=== PATIENT | female | born 1970 | race Caucasian/White ===

== ENCOUNTER 2020-06-04 08:29 | Outpatient (REF) | payer OTHER, SELFPAY ==
--- NOTE | 2020-06-04 08:50 | US_ITS ---
EXAMINATION: ULTRASOUND ABDOMEN COMPRESSION WITH ELASTOGRAPHY CLINICAL INFORMATION: Fatty liver. COMPARISON: CT scan of the abdomen and pelvis dated 05/15/2015. TECHNIQUE: Multiple 2-D grayscale and color Doppler ultrasound images of the abdomen were obtained along with elastography. FINDINGS: Pancreas: The visualized pancreas is unremarkable. The tail is obscured by bowel gas shadowing. Abdominal aorta: Unremarkable. Inferior vena cava: Unremarkable. Liver: Diffuse increased echotexture without focal abnormality. Elastography: Median value is 1.55 with good sampling (0.13 IQR/median) is in the range of mild to moderate fibrosis. Gallbladder: Unremarkable. Common bile duct: 0.4 cm. Right kidney: 13.0 cm. Unremarkable. Left kidney: 12.6 cm. Unremarkable. Spleen: 9.2 cm. Unremarkable. IMPRESSION: 1. Hepatic steatosis without focal abnormality. Definitive evidence for cirrhosis is not seen. Elastography demonstrated mild to moderate fibrosis as detailed above.
== END 2020-06-04 08:30 | disposition home or self-care (01) ==
LOC: HO.US 08:29
PROVIDERS: Visit Provider Physician Assistant
DX: K76.0 Fatty (change of) liver, not elsewhere classified (principal)
CPT/HCPCS: 76705; 76981

== ENCOUNTER → 2020-06-27 10:39 | Outpatient (BNVA) | payer OTHER, MEDICAID, SELFPAY | PROVIDERS: PCP Internal Medicine; Referring Provider Internal Medicine; Visit Provider Physician Assistant | DX: K76.0 Fatty (change of) liver, not elsewhere classified (principal); E66.3 Overweight; E11.9 Type 2 diabetes mellitus without complications | CPT/HCPCS: 99212; Q3014 ==

== ENCOUNTER 2020-08-06 14:04 | Outpatient (REF) | payer OTHER, SELFPAY ==
--- NOTE | 2020-08-06 | MM_ITS ---
EXAMINATION: MM SCREENING DIGITAL BREAST TOMOSYNTHESIS, BILATERAL CLINICAL INFORMATION: Screening. Asymptomatic. The lifetime risk of breast cancer based on the Tyrer-Cuzick Model is 17.9%. COMPARISON: Mammography: March 23, 2019 and studies dating back to July 23, 2013 TECHNIQUE: Digital breast tomosynthesis is performed in both the craniocaudal and mediolateral oblique views along with computer-aided detection (CAD). Synthesized 2D images are generated from the tomosynthesis. FINDINGS: The breasts are heterogeneously dense, which may obscure small masses (ACR BI-RADS breast composition Category c). There are no significant masses, abnormal calcifications, or other abnormalities. MM/MM tomosynthesis screening BI IMPRESSION: There are no significant changes from prior study. ASSESSMENT: BI-RADS 1: Negative RECOMMENDATION: Routine annual mammography screening. This patient's information was entered into a reminder system with a target due date for their next mammogram.
== END 2020-08-06 14:05 | disposition home or self-care (01) ==
LOC: HO.MAMMO 14:04
PROVIDERS: PCP Internal Medicine; Visit Provider Internal Medicine
DX: Z12.31 Encounter for screening mammogram for malignant neoplasm of breast (principal)
CPT/HCPCS: 77063; 77067

== ENCOUNTER 2020-08-14 11:30 | Day surgery (SDC) | payer OTHER, SELFPAY ==
[2020-08-08 16:25] VITALS: BMI 34.9
--- NOTE | 2020-08-13 09:38 | HO.ANESPROP2 ---
Documented by User: Ameena Mckenzie 08/13/20 09:40 HPI - Anesthesia Eval Consult details Narrative: 50yo F [facility] Colon[facility] Past Medical History Medical History Benign head tremor Carpal tunnel syndrome Depressed Diabetes Dystonia Fatty liver Obesity Family History Family History Father Coronary artery disease Mother Coronary artery disease Emphysema lung Paternal Uncle Myocardial infarction Paternal Aunt Breast cancer Surgical History Surgical History History of carpal tunnel release History of extraction of renal calculus S/P Botox injection Social History Social History Alcohol intake: former Smoking Status: Unknown if ever smoked Use of substances other than those prescribed or required for medical reasons: No Advance Directives: Yes Advance Directives Information Provided: No Advance Directives on File: Yes Advance Directives Date on File: 06/04/20 Recently lost weight without trying: No Current occupational status: unemployed Current occupation: since covid pandemic Meds Allergies Allergy/AdvReac Type Severity Reaction Status Date / Time No Known Allergies Allergy Verified 07/09/20 09:40 Home Medications Medication Instructions Recorded Confirmed Type albuterol sulfate 1 - 2 puff PO Q4-6H PRN 08/08/20 08/08/20 History baclofen 1 tab PO BID 08/08/20 08/08/20 History gabapentin 1 cap PO TID 08/08/20 08/08/20 History glipizide 1 tab PO DAILY 08/08/20 08/08/20 History lisinopril 1 tab PO DAILY 08/08/20 08/08/20 History metformin 1 tab PO BID 08/08/20 08/08/20 History propranolol 1 tab PO BID 08/08/20 08/08/20 History trihexyphenidyl 2 mg PO 4-5XD PRN 08/08/20 08/08/20 History Exam Exam Date and Time: August 13, 202038 Height,Weight and Vital Signs: Height 5 ft 1.5 in Weight 85.275 kg Assessment and Plan Assessment Anesthesia Assessment: Chart Reviewed Documented by User: Delfino Giles 08/14/20 12:09 PMFSH Past Medical History Medical History Benign head tremor Carpal tunnel syndrome Depressed Diabetes Dystonia Fatty liver Obesity Family History Family History Father Coronary artery disease Mother Coronary artery disease Emphysema lung Paternal Uncle Myocardial infarction Paternal Aunt Breast cancer Surgical History Surgical History History of carpal tunnel release History of extraction of renal calculus S/P Botox injection Social History Social History Alcohol intake: former Smoking Status: Unknown if ever smoked Use of substances other than those prescribed or required for medical reasons: No Advance Directives: Yes Advance Directives Information Provided: No Advance Directives on File: Yes Advance Directives Date on File: 06/04/20 Recently lost weight without trying: No Current occupational status: unemployed Current occupation: since covid pandemic Meds Allergies Allergy/AdvReac Type Severity Reaction Status Date / Time No Known Allergies Allergy Verified 07/09/20 09:40 Home Medications Medication Instructions Recorded Confirmed Type albuterol sulfate 1 - 2 puff PO Q4-6H PRN 08/08/20 08/08/20 History baclofen 1 tab PO BID 08/08/20 08/08/20 History gabapentin 1 cap PO TID 08/08/20 08/08/20 History glipizide 1 tab PO DAILY 08/08/20 08/08/20 History lisinopril 1 tab PO DAILY 08/08/20 08/08/20 History metformin 1 tab PO BID 08/08/20 08/08/20 History propranolol 1 tab PO BID 08/08/20 08/08/20 History trihexyphenidyl 2 mg PO 4-5XD PRN 08/08/20 08/08/20 History Exam Airway Mallampati Class: II TM Dist: >3cm Neck ROM: Full
[2020-08-14 12:01] VITALS: BP 111/72; PULSE 93; RESP 18; TEMP 36.8; O2SAT 99
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
--- NOTE | 2020-08-14 12:02 | W.PM.OPN ---
Operative Note Operative Note Date of Service: 08/14/20 Narrative: Pre-op diagnosis: Colon cancer screening, abdominal pain, rectal bleeding Post-op diagnosis: other (Colon polyp, diverticulosis, hemorrhoids) Procedure: COLONOSCOPY TILL CECUM WITH SNARE POLYPECTOMY AND SUBMUCOSAL INJECTION Consent: Indications for the procedure and potential complications of bleeding, perforation, reaction to medications and missed diagnosis were discussed with the patient and informed consent was obtained. Instrument: Olympus PCF H 190 L variable stiffness pediatric colonoscope Monitoring: Vital signs and clinical assessment, intermittent blood pressure monitoring, continuous EKG monitoring, Pulse oximetry and Carbon Dioxide monitoring were done throughout the procedure. Colon withdrawl time was 30 minutes. Procedure: The patient was placed in the left lateral decubitis position and pre-procedure medications were administered. After a digital rectal examination of the ano-rectum, the video colonoscope was inserted into the rectum and advanced through the colon to the cecum. The colonoscope was slowly withdrawn in a retrograde panoramic fashion and the colon mucosa was carefully examined including a retroflexed view of the rectum. Findings and interventions are described below. Procedure Difficulty: Without difficulty Findings: Terminal Ileum: Not evaluated Cecum: Normal Ascending Colon: Normal Transverse Colon: Normal Descending Colon: Moderate diverticulosis Sigmoid Colon: A 3.5 - 4 cms pedunculated polyp at 30 cms - removed with a hot snare and polypectomy site marked with Renée Ink (submucosal injection). Moderate diverticulosis Rectum: Normal Ano-rectum: Small internal hemorrhoids Colon preparation: Good Impression and Post Procedure Diagnosis: Colonoscopy Findings: A 3.5 -4 cms pedunculated polyp at 30 cms - removed with a hot snare and polypectomy site marked with Renée Ink (submucosal injection). Moderate diverticulosis seen in the left colon Small hemorrhoids on retroflexed exam. Plan: Await pathology results Patient has an appointment on 08/27/20 in the GI Clinic with DAVID Sal . Repeat Colonoscopy interval based on path results - in 1 year if polyp is adenomatous to check polypectomy site in the sigmoid colon. Above findings were reviewed with the patient and colon polyps and diverticulosis handouts were given in the discharge area Surgeon: Perry Cardoso MD Anesthesia: MAC (SARITA Torres) Estimated blood loss (mL): 0 Pathology: other (A. SC polyp ) Condition: stable Disposition: PACU
[2020-08-14 12:11] LABS: Glucose, Whole Blood 224 mg/dL (60-115)
[2020-08-14 13:10] VITALS: BP 118/58; PULSE 91; RESP 14; TEMP 36.3; O2SAT 97
[2020-08-14 13:25] VITALS: BP 109/66; PULSE 81; RESP 16; TEMP 36.3; O2SAT 99
--- NOTE | 2020-08-14 13:59 | HO.POSTANES ---
Post Anesthesia Evaluation Post Anesthesia Evaluation Vital Signs: Vital Signs Temp Pulse Resp BP Pulse Ox 08/14/20 13:25 97.3 F 81 16 109/66 99 08/14/20 13:10 97.3 F 91 14 118/58 L 97 08/14/20 12:01 98.3 F 93 18 111/72 99 Anesthesia: Monitored Mental Status: Awake Pain Control: Satisfactory Nausea/Vomiting: None Hydration: Adequate Anesthesia-Related Issues: No Anes. Related Issues
== END 2020-08-14 14:19 | disposition home or self-care (01) ==
PROVIDERS: PCP Internal Medicine; Visit Provider Internal Medicine Gastroenterology
PROC: 0DJD8ZZ Inspection of Lower Intestinal Tract, Via Natural or Artificial Opening Endoscopic (ICD-10-PCS; CPT 45378; principal; 2020-08-14 12:40)
DX: Z12.11 Encounter for screening for malignant neoplasm of colon (principal); D12.5 Benign neoplasm of sigmoid colon; K57.30 Diverticulosis of large intestine without perforation or abscess without bleeding; K64.8 Other hemorrhoids; E11.9 Type 2 diabetes mellitus without complications; Z79.84 Long term (current) use of oral hypoglycemic drugs
CPT/HCPCS: 45385; 45381; 82947; 88305; J2370

== ENCOUNTER → 2020-09-11 08:41 | Outpatient (BNVA) | payer OTHER, SELFPAY | PROVIDERS: PCP Internal Medicine; Visit Provider Physician Assistant | DX: Z76.89 Persons encountering health services in other specified circumstances (principal) ==

== ENCOUNTER 2020-12-06 11:26 | Outpatient (REF) | payer OTHER, SELFPAY ==
[2020-12-06 12:36] LABS: Alanine Aminotransferase 36 U/L (0-31); Albumin Level 4.4 g/dL (3.5-5.0); Alkaline Phosphatase 70 U/L (39-117); Anion Gap 14 (12-20); Aspartate Amino Transferase 30 U/L (5-31); Bilirubin Total 0.7 mg/dL (0.0-1.0); Blood Urea Nitrogen 14 mg/dL (9-16); Calcium 9.8 mg/dL (8.4-10.2); Carbon Dioxide 28 mmol/L (22-29); Chloride 101 mmol/L (96-108); Cholesterol 209 mg/dL; Estimated Glomerular Filt Rate > 60; Glucose Random 231 mg/dL (60-115); HDL Cholesterol 69 mg/dL; LDL Cholesterol Calculated 122 mg/dl; Potassium 4.7 mmol/L (3.3-5.1); Sodium 138 mmol/L (135-145); Total Protein 7.4 g/dL (6.5-8.0); Triglycerides 91 mg/dL
== END 2020-12-06 11:27 | disposition home or self-care (01) ==
LOC: HO.LAB 11:26
PROVIDERS: PCP Internal Medicine; Visit Provider Internal Medicine
DX: E78.00 Pure hypercholesterolemia, unspecified (principal); E11.65 Type 2 diabetes mellitus with hyperglycemia
CPT/HCPCS: 36415; 80053; 80061

== ENCOUNTER 2020-12-12 14:45 | Outpatient (REF) | payer OTHER, SELFPAY ==
--- NOTE | ~2020-12-12 | XR_ITS ---
EXAMINATION: BILATERAL HIP X-RAY CLINICAL INFORMATION: Pain COMPARISON: None TECHNIQUE: 2 views of each hip FINDINGS: Bone alignment is normal. No fracture or dislocation is seen. The hip joints are normal. There is soft tissue ossification adjacent to the right greater trochanter. XR/XR hip LT min 2V IMPRESSION: Soft tissue ossification adjacent to the right greater trochanter otherwise unremarkable exam.
--- NOTE | ~2020-12-12 | XR_ITS ---
EXAMINATION: XR SACRUM AND COCCYX CLINICAL INFORMATION: Low back pain COMPARISON: None TECHNIQUE: 2 views of the sacrum and 2 views of the coccyx were obtained. FINDINGS: There is no visible fracture involving the sacrum or the coccyx. SI joints are symmetrical. Visualized pelvic bones are unremarkable. There are multiple pelvic phleboliths. No soft tissue mass seen. No bony erosive changes. XR/XR sacrum coccyx min 2V IMPRESSION: Unremarkable sacrum and coccyx.
--- NOTE | ~2020-12-12 | XR_ITS ---
EXAMINATION: BILATERAL HIP X-RAY CLINICAL INFORMATION: Pain COMPARISON: None TECHNIQUE: 2 views of each hip FINDINGS: Bone alignment is normal. No fracture or dislocation is seen. The hip joints are normal. There is soft tissue ossification adjacent to the right greater trochanter. XR/XR hip RT min 2V IMPRESSION: Soft tissue ossification adjacent to the right greater trochanter otherwise unremarkable exam.
--- NOTE | ~2020-12-12 | XR_ITS ---
EXAMINATION: XR LUMBOSACRAL SPINE CLINICAL INFORMATION: Low back pain COMPARISON: Previous lumbar spine x-ray January 2011 TECHNIQUE: Three views of the lumbosacral spine. FINDINGS: Bone alignment is normal. No fracture or dislocation is seen. There is multilevel degenerative spondylosis. Disc spaces are normal. There is lower lumbar spine facet arthritis. XR/XR lumbar spine 2-3V IMPRESSION: Degenerative changes.
== END 2020-12-12 14:46 | disposition home or self-care (01) ==
LOC: HO.XRAY 14:45
PROVIDERS: PCP Internal Medicine; Visit Provider Internal Medicine
DX: M25.552 Pain in left hip (principal); M25.551 Pain in right hip; M54.5 Low back pain
CPT/HCPCS: 72100; 72220; 73502

== ENCOUNTER 2021-01-31 13:00 | Outpatient (RCR) | payer OTHER, SELFPAY ==
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
--- NOTE | 2021-04-25 10:36 | MHC.PT.DC ---
[facility] [place] Office [place] Office [place] Office [address] Tobin Hartman [address] [phone] F: [phone] F: [phone] F: [phone] F: [phone] Physical Therapy Discharge Report Diagnosis: pain in R hip, pain in L hip, LBP Date of Surgery: Date of Evaluation: 12/26/20 Date of Discharge: 04/25/21 Treatments to Date: 11 Cancellations to Date: 0 No Shows to Date: 0 Discharge Status: Achieved Goals Improved Function Independent with HEP Discharge Summary: Pt I with HEP, decreased LBP, and improved function. Appropriate for d/c at this time. Electronically signed by: Lise Munson PT Please sign and return to therapist. Thank you for your referral.
== END 2021-04-25 10:37 | disposition home or self-care (01) ==
LOC: HO.PT 13:00
PROVIDERS: PCP Internal Medicine; Visit Provider Internal Medicine
DX: M25.551 Pain in right hip (principal); M25.552 Pain in left hip; M54.5 Low back pain
CPT/HCPCS: 97014; 97110; 97140; 97161; 97530

== ENCOUNTER 2021-03-07 13:55 | Outpatient (REF) | payer OTHER, SELFPAY ==
[2021-03-07 14:35] LABS: MANUAL DIFF FLAG NO
[2021-03-07 14:45] LABS: Basophils Percent Auto 0.6 % (0-2); Eosinophils Absolute Auto 0.1 X10*3/uL (0.0-0.4); Eosinophils Percent Auto 1.5 % (0-4); Hematocrit 40.4 % (37-47); Hemoglobin 13.2 g/dl (12.0-16.0); Imm Gran Abs Auto 0.01 X10*3/uL (0.00-0.03); Imm Gran Pct Auto 0.2 % (0.0-0.4); Lymphocytes Absolute Auto 1.9 X10*3/uL (1.2-4.9); Lymphocytes Percent Auto 28.9 % (20-40); Mean Corpuscular HGB Conc 32.7 g/dl (31.0-35.0); Mean Corpuscular Hemoglobin 28.8 pg (27.0-33.0); Mean Corpuscular Volume 88.2 fL (80-98); Mean Platelet Volume 10.1 fL (9.4-12.3); Monocytes Absolute Auto 0.6 X10*3/uL (0.1-1.2); Monocytes Percent Auto 9.1 % (2-11); Neutrophils Percent Auto 59.7 % (45-73); Platelet Count 237 X10*3/uL (160-400); Red Blood Count 4.58 X10*6/uL (4.20-5.50); Red Cell Distribution Width 13.2 % (11.0-16.0); White Blood Count 6.6 X10*3/uL (4.8-10.8)
[2021-03-07 14:59] LABS: Alanine Aminotransferase 48 U/L (0-31); Albumin Level 4.2 g/dL (3.5-5.0); Alkaline Phosphatase 66 U/L (39-117); Anion Gap 13 (12-20); Aspartate Amino Transferase 35 U/L (5-31); Bilirubin Total 0.7 mg/dL (0.0-1.0); Blood Urea Nitrogen 12 mg/dL (9-16); Calcium 9.4 mg/dL (8.4-10.2); Carbon Dioxide 24 mmol/L (22-29); Chloride 103 mmol/L (96-108); Cholesterol 186 mg/dL; Estimated Glomerular Filt Rate > 60; Glucose Random 207 mg/dL (60-115); HDL Cholesterol 59 mg/dL; LDL Cholesterol Calculated 114 mg/dl; Potassium 4.2 mmol/L (3.3-5.1); Sodium 136 mmol/L (135-145); Triglycerides 68 mg/dL
[2021-03-07 14:59] LABS: Creatinine Urine 61.77 mg/dL
[2021-03-07 15:20] LABS: Free T4 (Free Thyroxine) 0.96 ng/dL (0.71-1.85); Thyroid Stimulating Hormone 0.67 uIU/mL (0.32-4.0); Vitamin D 25-OH Total 23.7 ng/mL (>30)
[2021-03-07 15:32] LABS: Folate 19.1 ng/mL (> or = 4.0); Vitamin B12 544 pg/mL (200-900)
[2021-03-07 16:09] LABS: Estimated Average Glucose 217 mg/dL; Hemoglobin A1c % 9.2 %
== END 2021-03-07 13:56 | disposition home or self-care (01) ==
LOC: HO.LAB 13:55
PROVIDERS: PCP Internal Medicine; Visit Provider Internal Medicine
DX: E78.00 Pure hypercholesterolemia, unspecified (principal); E11.65 Type 2 diabetes mellitus with hyperglycemia; I10 Essential (primary) hypertension
CPT/HCPCS: 36415; 80053; 80061; 82043; 82306; 82607; 82746; 83036; 84439; 84443; 85025

== ENCOUNTER → 2021-03-19 07:45 | Outpatient (BNVA) | payer OTHER, SELFPAY | PROVIDERS: PCP Internal Medicine; Visit Provider Physician Assistant ==

== ENCOUNTER 2021-04-30 11:53 | Day surgery (SDC) | payer OTHER, SELFPAY ==
[2021-04-30 06:46] VITALS: BMI 30.7
[2021-04-30 12:15] VITALS: BP 103/67; PULSE 84; RESP 18; TEMP 36.6; O2SAT 95
[2021-04-30 12:38] LABS: Glucose, Whole Blood 235 mg/dL (60-115)
--- NOTE | 2021-04-30 12:46 | MHC.SHP ---
Pre-Procedural Eval Section A Date of Service: 04/30/21 The patient is an INPATIENT: No The History & Physical has been completed within 30 days and I have reviewed it.: No Section B Chief Complaint: Colon cancer screening, benign neoplasm of colon Details of Present Illness: Colon cancer screening, history of colon polyps Relevant Family History (Specify if Yes): No Relevant Social History: None Present Medications: see Short Stay Collaborative assessment Medical History: Significant History (Alcohol abuse Benign head tremor Carpal tunnel syndrome Cervical disc disease Depressed Diabetes Dystonia Fatty liver GERD (gastroesophageal reflux disease) History of renal calculi Hypercholesterolemia Hypertension Obesity Obesity (BMI 30-39.9) Type 2 diabetes mellitus with hyperglycemia Vitamin D ) History of Previous Operations: Relevant previous surgery/procedure and date(s) (History of carpal tunnel release History of extraction of renal calculus S/P Botox injection) Allergies: Allergies Allergy/AdvReac Type Severity Reaction Status Date / Time No Known Allergies Allergy Verified 03/19/21 07:46 Review of Systems Sugical H&P ROS: Negative: Constitution, Cardiovascular, Respiratory and Gastrointestinal Exam Surgical H&P Exam: Normal: Heart, Normal: Lungs, Normal: Extremities and Normal: Abdomen Plan Diagnosis/Plan: Unchanged I have reviewed the history and physical and performed a pertinent physical examination on my patient. No changes have occurred unless specified.
--- NOTE | 2021-04-30 12:48 | P.OP_ITS ---
Operative Note Operative Note Date of Service: 04/30/21 Narrative: Pre-op diagnosis:?Colon cancer screening, history of colon polyps Post-op diagnosis:?other (Colon polyp, nodule ascending colon, diverticulosis, hemorrhoids) Procedure:? COLONOSCOPY TILL CECUM WITH BIOPSIES AND SNARE POLYPECTOMY Consent: Indications for the procedure and potential complications of bleeding, perforation, reaction to medications and missed diagnosis were discussed with the patient and informed consent was obtained. Instrument: Olympus PCF H 190 L variable stiffness pediatric colonoscope Monitoring: Vital signs and clinical assessment, intermittent blood pressure monitoring, continuous EKG monitoring, Pulse oximetry and Carbon Dioxide monitoring were done throughout the procedure. Colon withdrawl time was 24 minutes. Procedure: The patient was placed in the left lateral decubitis position and pre-procedure medications were administered. After a digital rectal examination of the ano-rectum, the video colonoscope was inserted into the rectum and advanced through the colon to the cecum. The colonoscope was slowly withdrawn in a retrograde panoramic fashion and the colon mucosa was carefully examined including a retroflexed view of the rectum. Findings and interventions are described below. Procedure Difficulty: Without difficulty Findings: Terminal Ileum: Not evaluated Cecum:? Normal Ascending Colon:? A 2 cms yellowish benign appearing nodule in the proximal AC with normal overlying mucosa - biopsied with extrusion of fat. Transverse Colon:? Normal Descending Colon:? A 12-15 mm sessile polyp removed with a hot snare. Sigmoid Colon:? Polypectomy site noted at 30 cms with a small pedicle - biopsies obtained from the pedicle.? Moderate diverticulosis Rectum:? Normal Ano-rectum:? Small internal hemorrhoids Colon preparation:? Good? Impression and Post Procedure Diagnosis: Colonoscopy Findings: One polyp removed. Benign appearing nodule in AC - likely submucosal lipoma. Polypectomy site noted at 30 cms marked by suki ink and a small pedicle - biops ies obtained from the pedicle.? Moderate diverticulosis Moderate diverticulosis seen in the sigmoid colon Small hemorrhoids on retroflexed exam. Plan: Await pathology results Patient has an appointment on 05/27/21 in the GI Clinic with DAVID Sal . Repeat Colonoscopy interval based on path results - in 3 years if polyps are adenomatous and due to hx of a large TVA. Above findings were reviewed with the patient and colon polyps and diverticulosis handouts were given in the discharge area Surgeon:?Perry Cardoso MD Anesthesia:?MAC (Dr Clayton & Sis Mariee CRNA) Was an [employer] used for this Procedure?:?Yes [employer]:?[place] Estimated blood loss (mL):?0 Pathology:?other (A- ASCENDING COLON NODULE? B- DESCENDING COLON POLYP? C- SIGMOID COLON BX? FROM PREVIOUS POLYPECTOMY SITE) Condition:?stable Disposition:?PACU
--- NOTE | 2021-04-30 12:50 | PC.NURSE ---
pt sts in menopause period 2 mths poc 235 anesthesia aware of both no new orders. pt pwd nad
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
[2021-04-30] MEDS: Lactated Ringers 1,000 ML 50 ML IVCONT (13:52)
[2021-04-30 14:49] VITALS: BP 94/44; PULSE 85; RESP 14; TEMP 36.3; O2SAT 99
[2021-04-30 15:03] VITALS: BP 108/75; PULSE 83; RESP 16; TEMP 36.3; O2SAT 99
== END 2021-04-30 15:30 ==
PROVIDERS: PCP Internal Medicine; Visit Provider Internal Medicine Gastroenterology
PROC: 0DJD8ZZ Inspection of Lower Intestinal Tract, Via Natural or Artificial Opening Endoscopic (ICD-10-PCS; CPT 45378; principal; 2021-04-30 13:10)
DX: Z12.11 Encounter for screening for malignant neoplasm of colon (principal); D12.4 Benign neoplasm of descending colon; K57.30 Diverticulosis of large intestine without perforation or abscess without bleeding; K64.8 Other hemorrhoids; K63.89 Other specified diseases of intestine; Z86.010 Personal history of colon polyps; E11.9 Type 2 diabetes mellitus without complications; I10 Essential (primary) hypertension; Z79.82 Long term (current) use of aspirin; Z79.84 Long term (current) use of oral hypoglycemic drugs; Z79.899 Other long term (current) drug therapy
CPT/HCPCS: 45385; 45380; 45381; 82947; 88305

== ENCOUNTER → 2021-05-27 11:11 | Outpatient (BNVA) | payer OTHER, SELFPAY | PROVIDERS: PCP Internal Medicine; Visit Provider Physician Assistant ==

== ENCOUNTER 2021-09-10 13:07 | Outpatient (REF) | payer OTHER, SELFPAY ==
--- NOTE | ~2021-09-10 | MM_ITS ---
EXAMINATION: MM SCREENING DIGITAL BREAST TOMOSYNTHESIS, BILATERAL CLINICAL INFORMATION: Screening. Asymptomatic. The lifetime risk of breast cancer based on the Tyrer-Cuzick Model is 15%. COMPARISON: Mammography: 08/06/2020, 03/23/2019, 01/02/2018 TECHNIQUE: Digital breast tomosynthesis is performed in both the craniocaudal and mediolateral oblique views along with computer-aided detection (CAD). Synthesized 2D images are generated from the tomosynthesis. Additional bilateral MLO views are provided. FINDINGS: There are scattered areas of fibroglandular density (ACR BI-RADS breast composition Category b). There are no significant masses, abnormal calcifications, or other abnormalities. There are some dermal calcifications again noted posterior inferior right breast. The bilateral axilla are unremarkable. No significant changes. MM/MM tomosynthesis screening BI IMPRESSION: No mammographic evidence of malignancy. ASSESSMENT: BI-RADS 2: Benign RECOMMENDATION: Routine annual mammography screening. This patient's information was entered into a reminder system with a target due date for their next mammogram.
== END 2021-09-10 13:08 | disposition home or self-care (01) ==
LOC: HO.MAMMO 13:07
PROVIDERS: Visit Provider Internal Medicine
DX: Z12.31 Encounter for screening mammogram for malignant neoplasm of breast (principal)
CPT/HCPCS: 77063; 77067

== ENCOUNTER 2021-09-16 12:13 | Outpatient (REF) | payer OTHER, SELFPAY ==
--- NOTE | ~2021-09-16 | US_ITS ---
EXAMINATION: US ABDOMEN COMPLETE CLINICAL INFORMATION: Right upper quadrant abdominal pain, fatty liver. COMPARISON: Ultrasound abdomen complete with elastography 06/06/2020. CT abdomen and pelvis 05/15/2015. TECHNIQUE: Real-time imaging of the abdominal viscera. FINDINGS: PANCREAS: The visualized pancreas is normal in size and contour and echogenicity. No pancreatic ductal distention. Portion pancreatic tail and distal body are obscured by bowel gas and not completely imaged. No retroperitoneal effusion. ABDOMINAL AORTA: The proximal, mid, and distal segments are normal in caliber. INFERIOR VENA CAVA: Visualized portions are normal. LIVER: There is again mild hepatic enlargement, right lobe 21 cm. Liver surface is smooth. There is diffuse increased hepatic parenchymal echogenicity consistent with hepatic steatosis. There is no intrahepatic biliary ductal dilatation. No focal hepatic parenchymal lesion. GALLBLADDER: Normal. The gallbladder is physiologically distended without evidence of stones, sludge, polyps, wall thickening or pericholecystic fluid. COMMON BILE DUCT: Normal in caliber measuring 0.5 cm in diameter. RIGHT KIDNEY: Normal. No hydronephrosis. No renal calculi or focal parenchymal lesions. The kidney measures 12.5 cm in maximum dimension. LEFT KIDNEY: Normal. No hydronephrosis. No renal calculi or focal parenchymal lesions. The kidney measures 13.8 cm in maximum dimension. SPLEEN: Normal. The spleen measures 11.0 cm in maximum dimension. FREE FLUID: None. US/US abdomen complete IMPRESSION: 1. Chronic mild hepatic enlargement secondary to diffuse hepatic steatosis. No focal hepatic parenchymal lesion. Liver surface is smooth. 2. No cholelithiasis or biliary ductal dilatation. Visualized pancreas unremarkable. 3. No hydronephrosis.
== END 2021-09-16 12:14 | disposition home or self-care (01) ==
LOC: HO.US 12:13
PROVIDERS: PCP Internal Medicine; Visit Provider Internal Medicine
DX: R10.11 Right upper quadrant pain (principal); R79.89 Other specified abnormal findings of blood chemistry
CPT/HCPCS: 76700

== ENCOUNTER 2021-11-09 10:49 | Outpatient (REF) | payer OTHER, SELFPAY ==
[2021-11-09 11:02] LABS: MANUAL DIFF FLAG NO
[2021-11-09 11:21] LABS: Basophils Percent Auto 0.3 % (0-2); Eosinophils Absolute Auto 0.1 X10*3/uL (0.0-0.4); Eosinophils Percent Auto 1.1 % (0-4); Hematocrit 41.4 % (37.0-47.0); Hemoglobin 13.2 g/dl (12.0-16.0); Imm Gran Abs Auto 0.02 X10*3/uL (0.00-0.03); Imm Gran Pct Auto 0.3 % (0.0-0.4); Lymphocytes Absolute Auto 1.7 X10*3/uL (1.2-4.9); Lymphocytes Percent Auto 27.6 % (20-40); Mean Corpuscular HGB Conc 31.9 g/dl (31.0-35.0); Mean Corpuscular Hemoglobin 28.3 pg (27.0-33.0); Mean Corpuscular Volume 88.8 fL (80.0-98.0); Monocytes Absolute Auto 0.5 X10*3/uL (0.1-1.2); Monocytes Percent Auto 8.3 % (2-11); Neutrophils Absolute Auto 3.8 x10*3/uL (2.0-8.3); Neutrophils Percent Auto 62.4 % (45-73); Platelet Count 259 X10*3/uL (160-400); Red Blood Count 4.66 X10*6/uL (4.20-5.50); Red Cell Distribution Width 13.2 % (11.0-16.0); White Blood Count 6.2 X10*3/uL (4.8-10.8)
[2021-11-09 11:35] LABS: Estimated Average Glucose 220 mg/dL; Hemoglobin A1c % 9.3 %
[2021-11-09 11:44] LABS: Alanine Aminotransferase 65 U/L (0-31); Albumin Level 4.3 g/dL (3.5-5.0); Alkaline Phosphatase 70 U/L (39-117); Anion Gap 14 (12-20); Aspartate Amino Transferase 46 U/L (5-31); Bilirubin Total 0.8 mg/dL (0.0-1.0); Blood Urea Nitrogen 11 mg/dL (9-16); Calcium 9.4 mg/dL (8.4-10.2); Carbon Dioxide 26 mmol/L (22-29); Chloride 101 mmol/L (96-108); Cholesterol 184 mg/dL; Estimated Glomerular Filt Rate > 60; Glucose Random 288 mg/dL (60-115); HDL Cholesterol 68 mg/dL; LDL Cholesterol Calculated 99 mg/dl; Potassium 4.1 mmol/L (3.3-5.1); Sodium 137 mmol/L (135-145); Total Protein 7.3 g/dL (6.5-8.0); Triglycerides 85 mg/dL
[2021-11-09 11:45] LABS: Creatinine Urine 161.17 mg/dL; Microalbum/Creatinine Ratio Ur 25.4 ug/mg cr
[2021-11-09 12:06] LABS: Free T4 (Free Thyroxine) 0.93 ng/dL (0.71-1.85); Vitamin D 25-OH Total 29.3 ng/mL (>30)
[2021-11-09 12:17] LABS: Folate 18.6 ng/mL (> or = 4.0); Vitamin B12 550 pg/mL (200-900)
== END 2021-11-09 10:50 | disposition home or self-care (01) ==
LOC: HO.LAB 10:49
PROVIDERS: PCP Internal Medicine; Visit Provider Internal Medicine
DX: E11.65 Type 2 diabetes mellitus with hyperglycemia (principal); E78.00 Pure hypercholesterolemia, unspecified; I10 Essential (primary) hypertension
CPT/HCPCS: 36415; 80053; 80061; 82043; 82306; 82607; 82746; 83036; 84439; 84443; 85025

== ENCOUNTER 2022-04-03 10:16 | Outpatient (REF) | payer OTHER, SELFPAY ==
--- NOTE | 2022-04-03 10:19 | EMG_ITS ---
Right median and ulnar motor and sensory studies were performed. Right radial sensory studies were performed. Paraspinal muscles were tested with a needle. IMPRESSION: Severe right median neuropathy across carpal tunnel. MD CAROL Thomas/CRISTINE / [id number]
== END 2022-04-03 10:17 | disposition home or self-care (01) ==
LOC: HO.NEURO 10:16
PROVIDERS: PCP Internal Medicine; Visit Provider Internal Medicine
DX: G56.00 Carpal tunnel syndrome, unspecified upper limb (principal)
CPT/HCPCS: 95886; 95909

== ENCOUNTER → 2022-05-20 13:06 | Outpatient (BNVA) | payer MEDICARE, MEDICAID, SELFPAY | PROVIDERS: PCP Internal Medicine; Visit Provider Orthopaedic Surgery | DX: G56.01 Carpal tunnel syndrome, right upper limb (principal); M65.331 Trigger finger, right middle finger; E11.65 Type 2 diabetes mellitus with hyperglycemia; Z68.30 Body mass index [BMI] 30.0-30.9, adult | CPT/HCPCS: 99202 ==

== ENCOUNTER 2022-09-16 12:59 | Outpatient (REF) | payer MEDICARE, MEDICAID, SELFPAY ==
--- NOTE | ~2022-09-16 | MM_ITS ---
EXAMINATION: MM SCREENING DIGITAL BREAST TOMOSYNTHESIS, BILATERAL CLINICAL INFORMATION: Screening. Asymptomatic. The lifetime risk of breast cancer based on the Tyrer-Cuzick Model is 15%. COMPARISON: Mammography: 09/10/2021, 08/06/2020, 03/23/2019 TECHNIQUE: Digital breast tomosynthesis is performed in both the craniocaudal and mediolateral oblique views along with computer-aided detection (CAD). Synthesized 2D images are generated from the tomosynthesis. FINDINGS: There are scattered areas of fibroglandular density (ACR BI-RADS breast composition Category b). There are no significant masses, abnormal calcifications, or other abnormalities. The parenchymal pattern is similar to prior studies and there is no developing density or architectural abnormality. The axilla and skin contours are unremarkable. There are grouped incidental dermal calcifications again noted posterior 5:00 right breast. MM/MM tomosynthesis screening BI IMPRESSION: No mammographic evidence of malignancy. ASSESSMENT: BI-RADS 2: Benign RECOMMENDATION: Routine annual mammography screening. This patient's information was entered into a reminder system with a target due date for their next mammogram.
== END 2022-09-16 13:00 | disposition home or self-care (01) ==
LOC: HO.MAMMO 12:59
PROVIDERS: PCP Internal Medicine; Visit Provider Internal Medicine
DX: Z12.31 Encounter for screening mammogram for malignant neoplasm of breast (principal)
CPT/HCPCS: 77063; 77067

== ENCOUNTER → 2023-01-06 09:37 | Outpatient (BNVA) | payer MEDICARE, MEDICAID, SELFPAY | PROVIDERS: PCP Internal Medicine; Visit Provider Dietitian, Registered | DX: E11.65 Type 2 diabetes mellitus with hyperglycemia (principal); E78.00 Pure hypercholesterolemia, unspecified; Z71.3 Dietary counseling and surveillance | CPT/HCPCS: 97802 ==

== ENCOUNTER 2023-01-21 14:17 | Outpatient (REF) | payer MEDICARE, MEDICAID, SELFPAY ==
[2023-01-21 14:28] LABS: MANUAL DIFF FLAG NO
[2023-01-21 15:52] LABS: Basophils Percent Auto 0.5 % (0-2); Eosinophils Absolute Auto 0.1 X10*3/uL (0.0-0.4); Eosinophils Percent Auto 1.4 % (0-4); Hematocrit 43.3 % (37.0-47.0); Hemoglobin 13.8 g/dl (12.0-16.0); Imm Gran Abs Auto 0.01 X10*3/uL (0.00-0.03); Imm Gran Pct Auto 0.2 % (0.0-0.4); Lymphocytes Absolute Auto 2.2 X10*3/uL (1.2-4.9); Lymphocytes Percent Auto 32.5 % (20-40); Mean Corpuscular HGB Conc 31.9 g/dl (31.0-35.0); Mean Corpuscular Hemoglobin 28.2 pg (27.0-33.0); Mean Corpuscular Volume 88.5 fL (80.0-98.0); Mean Platelet Volume 10.3 fL (9.4-12.3); Monocytes Absolute Auto 0.6 X10*3/uL (0.1-1.2); Monocytes Percent Auto 8.9 % (2-11); Neutrophils Absolute Auto 3.8 x10*3/uL (2.0-8.3); Neutrophils Percent Auto 56.5 % (45-73); Platelet Count 277 X10*3/uL (160-400); Red Blood Count 4.89 X10*6/uL (4.20-5.50); Red Cell Distribution Width 13.1 % (11.0-16.0); White Blood Count 6.6 X10*3/uL (4.8-10.8)
[2023-01-21 16:18] LABS: Creatinine Urine 11.06 mg/dL; Microalbumin Urine < 5.0 mg/L
[2023-01-21 16:27] LABS: Alanine Aminotransferase 23 U/L (0-31); Albumin Level 4.4 g/dL (3.5-5.0); Alkaline Phosphatase 68 U/L (39-117); Anion Gap 13 (12-20); Aspartate Amino Transferase 17 U/L (5-31); Bilirubin Total 0.8 mg/dL (0.0-1.0); Blood Urea Nitrogen 16 mg/dL (9-16); Calcium 10.1 mg/dL (8.4-10.2); Carbon Dioxide 26 mmol/L (22-29); Chloride 103 mmol/L (96-108); Cholesterol 170 mg/dL; Estimated Glomerular Filt Rate > 60; Glucose Random 174 mg/dL (60-115); HDL Cholesterol 68 mg/dL; LDL Cholesterol Calculated 90 mg/dl; Potassium 4.3 mmol/L (3.3-5.1); Sodium 138 mmol/L (135-145); Total Protein 7.1 g/dL (6.5-8.0); Triglycerides 62 mg/dL
[2023-01-21 16:56] LABS: Folate 18.1 ng/mL (> or = 4.0); Free T4 (Free Thyroxine) 0.93 ng/dL (0.71-1.85); Thyroid Stimulating Hormone 0.97 uIU/mL (0.32-4.0); Vitamin B12 559 pg/mL (200-900); Vitamin D 25-OH Total 47.9 ng/mL (>30)
== END 2023-01-21 14:18 | disposition home or self-care (01) ==
LOC: HO.LAB 14:17
PROVIDERS: PCP Internal Medicine; Visit Provider Internal Medicine
DX: E11.65 Type 2 diabetes mellitus with hyperglycemia (principal); E78.00 Pure hypercholesterolemia, unspecified; E55.9 Vitamin D deficiency, unspecified; G24.9 Dystonia, unspecified; F32.A Depression, unspecified
CPT/HCPCS: 36415; 80053; 80061; 82043; 82306; 82607; 82746; 84439; 84443; 85025

== ENCOUNTER → 2023-02-04 13:20 | Outpatient (BNVA) | payer MEDICARE, MEDICAID, SELFPAY | PROVIDERS: PCP Internal Medicine; Visit Provider Orthopaedic Surgery | DX: G56.01 Carpal tunnel syndrome, right upper limb (principal); M65.331 Trigger finger, right middle finger; E11.65 Type 2 diabetes mellitus with hyperglycemia | CPT/HCPCS: 99212 ==

== ENCOUNTER → 2023-02-10 13:43 | Outpatient (BNVA) | payer MEDICARE, MEDICAID, SELFPAY | PROVIDERS: PCP Internal Medicine; Visit Provider Dietitian, Registered | DX: E11.65 Type 2 diabetes mellitus with hyperglycemia (principal) | CPT/HCPCS: 97803 ==

== ENCOUNTER 2023-02-24 13:32 | Outpatient (AMB) | payer MEDICARE, MEDICAID, SELFPAY ==
[2023-02-24 01:00] VITALS: BMI 31.9
--- NOTE | 2023-03-11 10:49 | A.OFFVIS_ITS ---
Intake VS Expanded 02/24/23 01:00 Height 5 ft 0.5 in Weight 166 lb 3.657 oz BMI 31.9 Intake Visit Reasons: dm Allergies No Known Allergies Allergy (Verified 03/09/23 13:20) HPI Nutrition Presentation Details Pt presents for [facility] Session 2 for T2DM Most Recent Diabetes Results: Microalb/Creat Ratio TNP 01/21/23 Cholesterol 170 mg/dL 01/21/23 HDL Cholesterol 68 mg/dL 01/21/23 Triglycerides 62 mg/dL 01/21/23 Creatinine 0.74 mg/dL (0.5-1.4) 01/21/23 Blood Urea Nitrogen 16 mg/dL (9-16) 01/21/23 Sodium 138 mmol/L (135-145) 01/21/23 Potassium 4.3 mmol/L (3.3-5.1) 01/21/23 Chloride 103 mmol/L (96-108) 01/21/23 Carbon Dioxide 26 mmol/L (22-29) 01/21/23 Calcium 10.1 mg/dL (8.4-10.2) 01/21/23 AST 17 U/L (5-31) 01/21/23 ALT 23 U/L (0-31) 01/21/23 Total Protein 7.1 g/dL (6.5-8.0) 01/21/23 Albumin 4.4 g/dL (3.5-5.0) 01/21/23 [facility], [facility] Medical History (Updated 03/11/23 @ 10:51 by Rosa Maria Stevens, RD, LDN) Alcohol abuse Benign head tremor Carpal tunnel syndrome of right wrist Cervical disc disease Depressed Diabetes Dystonia Fatty liver GERD (gastroesophageal reflux disease) History of renal calculi Hypercholesterolemia Hypertension Menopause Menopause Obesity Obesity (BMI 30-39.9) RUQ abdominal pain Type 2 diabetes mellitus with hyperglycemia Vitamin D deficiency Surgical History History of carpal tunnel release History of extraction of renal calculus Hx of colonoscopy S/P Botox injection Family History (Updated 03/09/23 @ 13:21 by Dunia Fontanez CMA) Father Coronary artery disease Mother Emphysema lung Uterine cancer Paternal Uncle Myocardial infarction Paternal Aunt Breast cancer Myocardial infarction Brother CVA (cerebral vascular accident) Social History Housing: Apartment Alcohol intake: former Patient Tobacco Use Status: Never used Tobacco e-Cigarette/Vaping Use: Never Used Second Hand Smoke Exposure: No Advance Directives Date on File: 06/04/20 service: No Current occupational status: disabled Current occupation: rt hand Cognitive needs: No Hearing needs: No Vision needs: Yes Assessment & Plan Assessment & Plan (1) Type 2 diabetes mellitus with hyperglycemia: Comment: A1c at 8.5% on 10/28/22 Code(s): E11.65 - Type 2 diabetes mellitus with hyperglycemia Qualifiers: Diabetes mellitus correction insulin use: without correction use Qualified Code(s): E11.65 - Type 2 diabetes mellitus with hyperglycemia Plan: Patient presents for medical nutrition therapy group session related to diabetes. Patient participated in group discussion and asked questions pertinent to the topic discussed. Patient Instructions: Topic discussed related to exercise Benefits of exercise including improving: insulin sensitivity, blood glucose level, cholesterol, blood pressure, mood and prevent muscle wasting Precaution with hypoglycemia and how to prevent and treat hypoglycemia Role of hydration and how to prevent dehydration Balancing meals with protein, complex carbohydrates Review healthy plate method Coding Level of Care Code Nutr Indiv Subseq ([id number]) Diagnoses Type 2 diabetes mellitus with hyperglycemia E11.65 Diabetes mellitus terminal make up operator insulin use: without correction use Time Spent (min) 60 Comment [facility] [id number]
== END 2023-02-24 14:51 | disposition home or self-care (01) ==
LOC: HO.ENCR 13:32
PROVIDERS: PCP Internal Medicine; Visit Provider Dietitian, Registered
DX: E11.65 Type 2 diabetes mellitus with hyperglycemia (principal)

== ENCOUNTER → 2023-02-24 13:32 | Outpatient (BNVA) | payer MEDICARE, MEDICAID, SELFPAY | PROVIDERS: PCP Internal Medicine; Visit Provider Dietitian, Registered | DX: E11.65 Type 2 diabetes mellitus with hyperglycemia (principal); Z71.3 Dietary counseling and surveillance | CPT/HCPCS: 97803 ==

== ENCOUNTER 2023-03-09 13:17 | Outpatient (AMB) | payer MEDICARE, MEDICAID, SELFPAY ==
[2023-03-09 13:19] VITALS: BP 120/78; PULSE 69; O2SAT 98; BMI 31.1
--- NOTE | 2023-03-09 13:19 | MHC.PC.OV ---
Vital Signs 03/09/23 13:19 Height 5 ft 0.5 in Weight 162 lb BMI 31.1 BP 120/78 Blood Pressure Location Lt brachial Position Sitting Pulse 69 Pulse Source Pulse Oximeter Pulse Oximetry (%) 98 Oxygen Delivery Method Room Air Intake Visit Reasons: DM Allergies No Known Allergies Allergy (Verified 03/09/23 13:20) Medication List - Last Reconciled 03/09/23 by Mao Sánchez MD baclofen 10 mg PO BID [blood glucose machine As directed] blood pressure monitor (Blood Pressure Kit) As directed blood sugar diagnostic (FreeStyle Lite Strips) 1 strip miscellaneous BID cholecalciferol (vitamin D3) 25 mcg PO DAILY empagliflozin 25 mg PO DAILY 30 days gabapentin 300 mg PO TID glipizide 5 mg PO DAILY [glucometer strips As directed] [lancets As directed] lancets (FreeStyle Lancets) As directed check BS BID metformin 1,000 mg PO BID 90 days multivitamin 1 tab PO DAILY propranolol 10 mg PO BID simvastatin 5 mg PO BEDTIME tramadol 50 mg PO BID PRN Tobacco use date assessed: 11/17/22 Dental Screening Dental Screen Date: 03/09/23 Did you have a dental visit in the last 12 months?: Yes Did you have a dental problem in the last 6 months where you did not have access to dental care?: No Was dental information given to patient?: Patient has dentist HPI DM HPI Details 52-year-old obese female with diabetes mellitus fatty liver hypertension hypercholesterolemia GERD and dystonia coming in for follow-up. Last seen in December 2022. Patient's mammogram is up-to-date colonoscopy due for next year. Patient has seen orthopedics for the carpal tunnel syndrome on the right which is severe with right middle trigger finger surgery would be recommended but the diabetes needs to be under control. PAtient stoopewd lisinopril due to low bp . continue to monitor the BP patient has been eating better as well as exercising now. [facility] Medical History (Updated 03/09/23 @ 13:45 by Mao Sánchez MD) Alcohol abuse Benign head tremor Carpal tunnel syndrome of right wrist Cervical disc disease Depressed Diabetes Dystonia Fatty liver GERD (gastroesophageal reflux disease) History of renal calculi Hypercholesterolemia Hypertension Menopause Menopause Obesity Obesity (BMI 30-39.9) RUQ abdominal pain Type 2 diabetes mellitus with hyperglycemia Vitamin D deficiency Surgical History History of carpal tunnel release History of extraction of renal calculus Hx of colonoscopy S/P Botox injection Family History (Updated 03/09/23 @ 13:21 by Dunia Fontanez [facility]) Father Coronary artery disease Mother Emphysema lung Uterine cancer Paternal Uncle Myocardial infarction Paternal Aunt Breast cancer Myocardial infarction Brother CVA (cerebral vascular accident) Social History Housing: Apartment Alcohol intake: former Patient Tobacco Use Status: Never used Tobacco e-Cigarette/Vaping Use: Never Used Second Hand Smoke Exposure: No Advance Directives Date on File: 06/04/20 service: No Current occupational status: disabled Current occupation: rt hand Cognitive needs: No Hearing needs: No Vision needs: Yes Questionnaire PHQ-9 Over the last 2 weeks, how often have you been bothered by any of the following problems? 1. Little interest or pleasure in doing things: several days 2. Feeling down, depressed, or hopeless: several days 3. Trouble falling or staying asleep, or sleeping too much: not at all 4. Feeling tired or having little energy: not at all 5. Poor appetite or overeating: not at all 6. Feeling bad about yourself - or that you are a failure or have let yourself or your family down: not at all 7. Trouble concentrating on things, such as reading the newspaper or watching television: not at all 8. Moving or speaking so slowly that other people could have noticed. Or the opposite - being so fidgety or restless that you have been moving around a lot more than usual: not at all 9. Thoughts that you would be better off or of hurting yourself in some way: not at all Total score: 2 Depression Screening Interpretation: Positive Source: Developed by Drs. Pino Mcneill, Joann Ferraro, Law Osborne and colleagues, with an educational jessee from [employer] [place]. Thrive Questionnaire Date Thrive assessed: 10/28/22 AUDIT C Alcohol Use Questionnaire (AUDIT-C) 1. How often do you have a drink containing alcohol?: Monthly or less 2. How many drinks containing alcohol do you have on a typical day when you are drinking?: 1 or 2 3. How often do you have six or more drinks on one occasion?: Never Total Score: 1 ADRIAN-7 AMB Questionnaire ADRIAN-7 Date ADRIAN - 7 assessed: 10/28/22 Source: Developed by Drs. Pino Mcneill, Joann Ferraro, Law Osborne and colleagues, with an educational jessee from [employer] [place]. Physical exam (Primary Care) Vital Signs: Last Vital Signs Pulse 69 03/09/23 13:19 BP 120/78 03/09/23 13:19 Pulse Ox 98 03/09/23 13:19 Oxygen Delivery Method Room Air 03/09/23 13:19 BMI result Body Mass Index 31.1 Tobacco/Smoking Status: Tobacco use Status Tobacco use date assessed 11/17/22 03/09/23 13:21 Patient Tobacco Use Status Never used Tobacco 03/09/23 13:21 e-Cigarette/Vaping Use Never Used 03/09/23 13:21 PHQ-9: PHQ-9 Score PHQ-9: Total score 2 03/09/23 13:32 Depression Screening Interpretation: Positive Thrive Assessment: Date of Thrive Assessment Date Thrive assessed 10/28/22 03/09/23 13:21 Const General: alert; No acute distress Eyes Conjunctivae: conjunctivae normal Resp Auscultation: clear to auscultation bilaterally Cardio Rate: regular rate Rhythm: regular rhythm GI Inspection: Yes normal to inspection Extrem General: Yes normal to inspection and No edema Results AMB Hemoglobin A1c AMB Hemoglobin A1c 7.6 % Last Edit by Dunia Fontanez CMA on 03/09/23 13:33 Results Reviewed Results Reviewed: Laboratory Last Values Hgb A1c (Clinic) 7.6 % (4.0-6.0) H 03/09/23 13:21 Assessment and Plan Assessment & Plan (1) Type 2 diabetes mellitus with hyperglycemia: Comment: A1c at 8.5% on 10/28/22, orientation and mobility specialist [facility] Code(s): E11.65 - Type 2 diabetes mellitus with hyperglycemia Qualifiers: Diabetes mellitus termite treater helper insulin use: without termite treater helper use Qualified Code(s): E11.65 - Type 2 diabetes mellitus with hyperglycemia Plan: Decrease the amount of carbohydrate intake, pasta, bread, rice and potatoes are all sugar and that is aside from all the sweet stuff, remember that fruits are good but they are Sweet also. Hemoglobin A1c goal of less than 6.5 patient is taking Jardiance 25 mg once a day glipizide 5 mg once a day metformin a 1000 mg twice a day (2) Fatty liver: Comment: a 50-year-old overweight, diabetic female with past history of alcohol use follows up after recent ultrasound. Ultrasound does reveal hepatic steatosis, no lesions. Liver enzymes were normal AST/ALT . Code(s): K76.0 - Fatty (change of) liver, not elsewhere classified Plan: Low-fat diet and exercise (3) Hypertension: Code(s): I10 - Essential (primary) hypertension Qualifiers: Hypertension type: essential hypertension Qualified Code(s): I10 - Essential (primary) hypertension Plan: Continue with blood pressure medication. Decrease salt intake and exercise patient on propranolol 10 mg twice a day (4) Hypercholesterolemia: Code(s): E78.00 - Pure hypercholesterolemia, unspecified Plan: Avoid fried foods, chicken skin, eggs, butter margarine, pastries and meat. Be it pork or beef they have a lot of cholesterol LDL goal of less than 100 and triglyceride of less than 150. December 2022 last blood work (5) GERD (gastroesophageal reflux disease): Code(s): K21.9 - Gastro-esophageal reflux disease without esophagitis Qualifiers: Esophagitis presence: without esophagitis Qualified Code(s): K21.9 - Gastro-esophageal reflux disease without esophagitis Plan: Avoid the foods that causes that usually spicy foods, tomato products, juices, coffee, soda and foods that your sensitive to. After eating do not lie down, allow 3-4 hours before in lie down. And keep the head of bed above 30 degrees to avoid the acid from going up. (6) Dystonia: Comment: Cervical, Sees Dr Siegel in [place] Code(s): G24.9 - Dystonia, unspecified Plan: Patient on muscle relaxant and follows up with Neurology (7) Carpal tunnel syndrome: Comment: Right, severe March 2022 Code(s): G56.00 - Carpal tunnel syndrome, unspecified upper limb Plan: Patient has met with ortho and planned surgery but will need a hemoglobin A1c low below 8 (8) Trigger finger, right middle finger: Code(s): M65.331 - Trigger finger, right middle finger Plan: Planned surgery but will need a hemoglobin A1c below 8 (9) Obesity (BMI 30-39.9): Code(s): E66.9 - Obesity, unspecified Plan: Diet and exercise Orders: Orders AMB Hemoglobin A1c Today Z13.9 - Encounter for screening, unspecified Medications: Refilled simvastatin 5 mg PO BEDTIME 90 tabs 1RF E78.00 - Pure hypercholesterolemia, unspecified Coding Level of Care Code Est Pt Level 4 (59558) Diagnoses Type 2 diabetes mellitus with hyperglycemia E11.65 Diabetes mellitus [facility] insulin use: without [facility] use Fatty liver K76.0 Hypertension I10 Hypertension type: essential hypertension Hypercholesterolemia E78.00 GERD (gastroesophageal reflux disease) K21.9 Esophagitis presence: without esophagitis Dystonia G24.9 Carpal tunnel syndrome G56.00 Trigger finger, right middle finger M65.331 Obesity (BMI 30-39.9) E66.9
== END 2023-03-09 13:46 | disposition home or self-care (01) ==
PROVIDERS: Visit Provider Internal Medicine
DX: E11.65 Type 2 diabetes mellitus with hyperglycemia (principal); I10 Essential (primary) hypertension; K21.9 Gastro-esophageal reflux disease without esophagitis; K76.0 Fatty (change of) liver, not elsewhere classified; E78.00 Pure hypercholesterolemia, unspecified; G24.9 Dystonia, unspecified; G56.00 Carpal tunnel syndrome, unspecified upper limb; M65.331 Trigger finger, right middle finger; E66.9 Obesity, unspecified
CPT/HCPCS: 83036; 99214

== ENCOUNTER 2023-03-10 13:33 | Outpatient (AMB) | payer MEDICARE, MEDICAID, SELFPAY ==
[2023-03-10 09:47] VITALS: BMI 31.6
--- NOTE | 2023-03-11 09:19 | MHC.AMNUTRGE ---
Intake VS Expanded 03/10/23 09:47 Height 5 ft 0.5 in Weight 164 lb 7.437 oz BMI 31.6 Intake Visit Reasons: dm Allergies No Known Allergies Allergy (Verified 03/09/23 13:20) HPI Nutrition Presentation Details Pt presents for [facility] education for T2DM. ? Patient participated in nutrition group? education session 3? Most Recent Diabetes Results: Microalb/Creat Ratio TNP 01/21/23 Cholesterol 170 mg/dL 01/21/23 HDL Cholesterol 68 mg/dL 01/21/23 Triglycerides 62 mg/dL 01/21/23 Creatinine 0.74 mg/dL (0.5-1.4) 01/21/23 Blood Urea Nitrogen 16 mg/dL (9-16) 01/21/23 Sodium 138 mmol/L (135-145) 01/21/23 Potassium 4.3 mmol/L (3.3-5.1) 01/21/23 Chloride 103 mmol/L (96-108) 01/21/23 Carbon Dioxide 26 mmol/L (22-29) 01/21/23 Calcium 10.1 mg/dL (8.4-10.2) 01/21/23 AST 17 U/L (5-31) 01/21/23 ALT 23 U/L (0-31) 01/21/23 Total Protein 7.1 g/dL (6.5-8.0) 01/21/23 Albumin 4.4 g/dL (3.5-5.0) 01/21/23 PFSH Medical History (Updated 03/11/23 @ 09:50 by Rosa Maria Stevens, RD, LDN) Alcohol abuse Benign head tremor Carpal tunnel syndrome of right wrist Cervical disc disease Depressed Diabetes Dystonia Fatty liver GERD (gastroesophageal reflux disease) History of renal calculi Hypercholesterolemia Hypertension Menopause Menopause Obesity Obesity (BMI 30-39.9) RUQ abdominal pain Type 2 diabetes mellitus with hyperglycemia Vitamin D deficiency Surgical History History of carpal tunnel release History of extraction of renal calculus Hx of colonoscopy S/P Botox injection Family History (Updated 03/09/23 @ 13:21 by Dunia Fontanez CMA) Father Coronary artery disease Mother Emphysema lung Uterine cancer Paternal Uncle Myocardial infarction Paternal Aunt Breast cancer Myocardial infarction Brother CVA (cerebral vascular accident) Social History Housing: Apartment Alcohol intake: former Patient Tobacco Use Status: Never used Tobacco e-Cigarette/Vaping Use: Never Used Second Hand Smoke Exposure: No Advance Directives Date on File: 06/04/20 service: No Current occupational status: disabled Current occupation: rt hand Cognitive needs: No Hearing needs: No Vision needs: Yes Assessment & Plan Assessment & Plan (1) Type 2 diabetes mellitus with hyperglycemia: Comment: A1c at 8.5% on 10/28/22, 7.6 % (03/09/23) Code(s): E11.65 - Type 2 diabetes mellitus with hyperglycemia Qualifiers: Diabetes mellitus assistant terminal manager insulin use: without assistant terminal manager use Qualified Code(s): E11.65 - Type 2 diabetes mellitus with hyperglycemia Plan: Patient presents for medical nutrition therapy group session related to diabetes. Patient participated in group discussion and asked questions pertinent to the topic discussed. Patient Instructions: Nutrition Topics Discussed were related to: -How to interpret the food label Discussed Serving Size and servings per container What is the % daily value -Recommendations for fats and sodium -Differences between fats (saturated fats, trans fats, monounsaturated fats , polyunsaturated fats) and food sources of various fats - Reading ingredient list -Goals for blood cholesterol level -Relationship of fats and sodium and heart health -Practice reading food labels and practice making healthier choices Coding Level of Care Code Nutr Indiv Subseq ([id number]) Diagnoses Type 2 diabetes mellitus with hyperglycemia E11.65 Diabetes mellitus [facility] insulin use: without assistant terminal manager use Time Spent (min) 60 Comment [facility] [id number]
== END 2023-03-10 16:19 | disposition home or self-care (01) ==
PROVIDERS: PCP Internal Medicine; Visit Provider Dietitian, Registered
DX: E11.65 Type 2 diabetes mellitus with hyperglycemia (principal)

== ENCOUNTER → 2023-03-10 13:33 | Outpatient (BNVA) | payer MEDICARE, MEDICAID, SELFPAY | PROVIDERS: PCP Internal Medicine; Visit Provider Dietitian, Registered | DX: E11.65 Type 2 diabetes mellitus with hyperglycemia (principal) | CPT/HCPCS: 97803 ==

== ENCOUNTER 2023-03-24 14:39 | Outpatient (AMB) | payer MEDICARE, MEDICAID, SELFPAY ==
--- NOTE | 2023-03-24 14:51 | A.OFFVIS_ITS ---
Intake Vital Signs 03/24/23 15:09 Height 5 ft 0.5 in Weight 164 lb BMI 31.5 Intake Visit Reasons: ov- Carpal tunnel syndrome of right wrist Intake Note: Em is a 52 year old right hand dominant woman who returns to discuss treatment for her right carpal tunnel syndrome and trigger release. States her A1c is a 6.7. Allergies No Known Allergies Allergy (Verified 03/24/23 15:10) HPI ov- Carpal tunnel syndrome of right wrist HPI Details Em is a 52 year old right hand dominant woman who returns to discuss treatment for her right carpal tunnel syndrome. We had discussed surgery in the past, but her Diabetes was not well-controlled and her HgA1c was too high to proceed with surgery. She returns today saying she has been working on her Diabetes and her mot recent HgA1c was recently 7.6% on 03/09/23. She complains of worsening numbness and weakness in her right hand. She says she has dropped objects more frequently. She also has persistent catching and tenderness over the A1 elif area of the right middle finger. She would like to discuss surgery [facility] Medical History Alcohol abuse Benign head tremor Carpal tunnel syndrome of right wrist Cervical disc disease Depressed Diabetes Dystonia Fatty liver GERD (gastroesophageal reflux disease) History of renal calculi Hypercholesterolemia Hypertension Menopause Menopause Obesity Obesity (BMI 30-39.9) RUQ abdominal pain Type 2 diabetes mellitus with hyperglycemia Vitamin D deficiency Surgical History History of carpal tunnel release History of extraction of renal calculus Hx of colonoscopy S/P Botox injection Family History Father Coronary artery disease Mother Emphysema lung Uterine cancer Paternal Uncle Myocardial infarction Paternal Aunt Breast cancer Myocardial infarction Brother CVA (cerebral vascular accident) Social History Housing: Apartment Alcohol intake: former Patient Tobacco Use Status: Never used Tobacco e-Cigarette/Vaping Use: Never Used Second Hand Smoke Exposure: No Advance Directives Date on File: 06/04/20 service: No Current occupational status: disabled Current occupation: rt hand Cognitive needs: No Hearing needs: No Vision needs: Yes Physical Exam Vital Signs: BMI result Body Mass Index 31.5 Const General: no acute distress and alert Orientation/consciousness: patient oriented x3 Neuro General: patient oriented x3 Extrem Other: Evaluation of right Upper Extremity: The patient is alert, oriented, and in no acute distress Neuro: Decreased sensation in the median nerve distribution Normal sensation to the ulnar nerve distribution No thenar wasting, no intrinsic wasting Good APB muscle belly firing and good finger cross Vascular: Cap refill brisk ROM: She can make a fist and extend all her digits She cannot bring her middle finger into tight flexion Tender over the A1 elif of the middle finger Visible and palpable catching of the right middle finger with flexion and extension EMG Nerve study: IMPRESSION:? Severe right median neuropathy across carpal tunnel. Yamilex Prather MD 04/04/22 Psych Appearance: grossly normal Affect: normal affect Attitude: cooperative Assessment & Plan Assessment & Plan (1) Type 2 diabetes mellitus with hyperglycemia: Comment: A1c at 7.6% on 03/09/23 Code(s): E11.65 - Type 2 diabetes mellitus with hyperglycemia Qualifiers: Diabetes mellitus termite inspector insulin use: without fci use Qualified Code(s): E11.65 - Type 2 diabetes mellitus with hyperglycemia (2) Carpal tunnel syndrome of right wrist: Code(s): G56.01 - Carpal tunnel syndrome, right upper limb (3) Trigger finger, right middle finger: Code(s): M65.331 - Trigger finger, right middle finger Plan Assessment & Plan: 1. Right Carpal Tunnel syndrome, severe Dense numbness in the right index finger and thumb. 2. Right middle trigger finger 3. Diabetes Her most recent Hemoglobin A1c was 7.6% on 03/09/23 I educated her about these conditions She has improved her HgA1c and it is now <8.0% The patient would like to proceed with surgery The risks and benefits of operative treatment were discussed with the patient and the patient wishes to proceed with surgery. These risks include, but are not limited to risk of damage to blood vessels, nerves, tendons, infection, recurrence, incomplete relief of preoperative symptoms, persistent pain, possible need for further surgery and the risks associated with regional blocks and anesthesia. The plan is to take the patient to the operating room sometime in the next few weeks for the following procedures: 1. Right carpal tunnel release, under local 2. Right middle trigger finger release, under local All of the preoperative paperwork including the consent was filled out today. All the patient's questions were answered. The patient understands that they will be contacted by our construction or leak gang laborer soon to schedule this procedure She denies blood thinners, asthma, heart, lung, kidney issues Scribed for Sue Rasmussen MD by Jose L Hawthorne, medical superintendent, on 03/24/23 at 3:30 PM, EST. Coding Level of Care Code Est Pt Level 4 (60015) Diagnoses Type 2 diabetes mellitus with hyperglycemia E11.65 Diabetes mellitus termite inspector insulin use: without fci use Carpal tunnel syndrome of right wrist G56.01 Trigger finger, right middle finger M65.331
[2023-03-24 15:09] VITALS: BMI 31.5
== END 2023-03-24 15:38 | disposition home or self-care (01) ==
PROVIDERS: PCP Internal Medicine; Visit Provider Orthopaedic Surgery
DX: G56.01 Carpal tunnel syndrome, right upper limb (principal); M65.331 Trigger finger, right middle finger
CPT/HCPCS: 99214

== ENCOUNTER → 2023-03-24 14:39 | Outpatient (BNVA) | payer MEDICARE, MEDICAID, SELFPAY | PROVIDERS: PCP Internal Medicine; Visit Provider Orthopaedic Surgery | DX: G56.01 Carpal tunnel syndrome, right upper limb (principal); M65.331 Trigger finger, right middle finger; E11.65 Type 2 diabetes mellitus with hyperglycemia | CPT/HCPCS: 99212 ==

== ENCOUNTER 2023-04-14 13:32 | Outpatient (AMB) | payer MEDICARE, MEDICAID, SELFPAY ==
[2023-04-14 13:38] VITALS: BMI 31.0
--- NOTE | 2023-04-14 13:38 | MHC.AMNUTRGE ---
Intake VS Expanded 04/14/23 13:38 Height 5 ft 0.5 in Weight 161 lb 9.581 oz BMI 31.0 Intake Visit Reasons: dm Allergies No Known Allergies Allergy (Verified 03/24/23 15:10) HPI Nutrition Presentation Details Pt present for MNT for T2DM Today will review meal strategies when eating out. Most Recent Diabetes Results: Microalb/Creat Ratio TNP 01/21/23 Cholesterol 170 mg/dL 01/21/23 HDL Cholesterol 68 mg/dL 01/21/23 Triglycerides 62 mg/dL 01/21/23 Creatinine 0.74 mg/dL (0.5-1.4) 01/21/23 Blood Urea Nitrogen 16 mg/dL (9-16) 01/21/23 Sodium 138 mmol/L (135-145) 01/21/23 Potassium 4.3 mmol/L (3.3-5.1) 01/21/23 Chloride 103 mmol/L (96-108) 01/21/23 Carbon Dioxide 26 mmol/L (22-29) 01/21/23 Calcium 10.1 mg/dL (8.4-10.2) 01/21/23 AST 17 U/L (5-31) 01/21/23 ALT 23 U/L (0-31) 01/21/23 Total Protein 7.1 g/dL (6.5-8.0) 01/21/23 Albumin 4.4 g/dL (3.5-5.0) 01/21/23 [facility] Medical History Alcohol abuse Benign head tremor Carpal tunnel syndrome of right wrist Cervical disc disease Depressed Diabetes Dystonia Fatty liver GERD (gastroesophageal reflux disease) History of renal calculi Hypercholesterolemia Hypertension Menopause Menopause Obesity Obesity (BMI 30-39.9) RUQ abdominal pain Type 2 diabetes mellitus with hyperglycemia Vitamin D deficiency Surgical History History of carpal tunnel release History of extraction of renal calculus Hx of colonoscopy S/P Botox injection Family History Father Coronary artery disease Mother Emphysema lung Uterine cancer Paternal Uncle Myocardial infarction Paternal Aunt Breast cancer Myocardial infarction Brother CVA (cerebral vascular accident) Social History Housing: Apartment Alcohol intake: former Patient Tobacco Use Status: Never used Tobacco e-Cigarette/Vaping Use: Never Used Second Hand Smoke Exposure: No Advance Directives Date on File: 06/04/20 service: No Current occupational status: disabled Current occupation: rt hand Cognitive needs: No Hearing needs: No Vision needs: Yes Assessment & Plan Assessment & Plan (1) Type 2 diabetes mellitus with hyperglycemia: Comment: A1c at 7.6% on 03/09/23 Code(s): E11.65 - Type 2 diabetes mellitus with hyperglycemia Qualifiers: Diabetes mellitus technician terminal and repeater insulin use: without technician terminal and repeater use Qualified Code(s): E11.65 - Type 2 diabetes mellitus with hyperglycemia Plan: Educate Pt on following healthy plate method? ? Used wt?: ? 76 ? ? ? kg (74 kg on 04/14/23) Est kcal as per MSJ: 1639 (40% carb, 30% fat/prot) Est fluid needs: 1900 ml/d (25 ml/kg bw) Rec fiber:? increase to 8-10 g per day and gradually increase to 25 g/d? or? as tolerated? Rec Na: < ? 2000 mg /d Educate patient on:? (R= Reviewed,? V = verbalizes understanding ? N/R= Needs review? ? N/A= not applicable) Food sources of carbohydrates and serving adequate serving sizes :??R Difference between complex carbohydrates and simple carbohydrates, role of fiber:??R Differences between fats (MUFA/PUFA/saturated fats, trans fats) and food sources of various fats:??? R Food sources of sodium and salt and? healthy modifications for heart health and kidney health: R, V Vitamins and minerals:? R How to interpret food labels:? R, V Healthy Plate method concept:??R, V? Physical activity: benefits and precaution:? R, V Patient Instructions: REviewed eating out strategies- compare calories, request containers to go , choose water/lemon Continue working on reducing on carbs from empty calorie foods (pastries/cookies - read food labels compare calories/portions/carbs/portions) monitor your blood sugar 2 hours after a meal for self assessment Coding Level of Care Code Nutr Indiv Subseq (23075) Diagnoses Type 2 diabetes mellitus with hyperglycemia E11.65 Diabetes mellitus residential insulin use: without technician terminal and repeater use Time Spent (min) 30
== END 2023-04-14 14:42 | disposition home or self-care (01) ==
PROVIDERS: PCP Internal Medicine; Visit Provider Dietitian, Registered
DX: E11.65 Type 2 diabetes mellitus with hyperglycemia (principal)

== ENCOUNTER → 2023-04-14 13:32 | Outpatient (BNVA) | payer MEDICARE, MEDICAID, SELFPAY | PROVIDERS: Visit Provider Dietitian, Registered | DX: E11.65 Type 2 diabetes mellitus with hyperglycemia (principal); Z71.3 Dietary counseling and surveillance | CPT/HCPCS: 97803 ==

== ENCOUNTER 2023-05-07 11:00 | Day surgery (SDC) | payer MEDICARE, MEDICAID, SELFPAY ==
--- NOTE | 2023-05-07 10:46 | P.OP_ITS ---
Operative Note Operative Note Date of Service: 05/07/23 Narrative: Preop diagnosis: 1. right Carpal tunnel syndrome 2. Right middle finger trigger finger Postop diagnosis: same Procedure: 1. right Carpal tunnel release 2. Right middle finger trigger release Surgeon: Sue Rasmussen MD Anesthesia: local block using 1% lidocaine with epinephrine Findings: Thickened transverse carpal ligament. no locking or catching after A1 elif release EBL: Less than 5 mL Specimens: None Complications: None Disposition: Brought to recovery room in stable condition Plan: Follow-up for 10-14 days for wound check and suture removal Indications: The patient is 52 years old, with right carpal tunnel syndrome and a right middle finger trigger finger that have beenunresponsive to nonoperative management. The risks and benefits of operative treatment includi ng but not limited to risk of damage to blood vessels, nerves, tendons, infection, persistent pain, persistent symptoms, or possible need for additional surgery were discussed with the patient and the patient wishes to proceed with surgery. Procedure: Once consent was obtained a local block was performed using a combination of 1% lidocaine with epinephrine. The patient was then brought back to the operating suite and placed on the operative table in supine position. The right upper extremity was prepped and draped in a standard surgical fashion. Once assured that we had a good block, a 2.0 cm longitudinal incision was made centered over the carpal tunnel. The incision was made through the skin to the subcutaneous tissues using a #15 blade. Dissection was made down to the level of the transverse carpal ligament with care being taken to protect the palmar cutaneous nerve. Once the transverse carpal ligament was clearly visualized, a longitudinal incision was made in the transverse carpal ligament 1st using a #15 blade, then using tenotomy scissors under direct visualization. Care was taken to look for and protect the motor branch of the median nerve when seen in this area. Once satisfied with our carpal tunnel release the wound was copiously irrigated with normal saline and hemostasis was obtained with a brief period of local pressure. Once assured that we had a good block, a 1.5 cm oblique incision was made centered over the A1 elif of the right middle finger . The incision was made through the skin to the subcutaneous tissues using a #15 blade. Careful dissection was made down to the level of the A1 elif using tenotomy scissors, with care being taken to protect the nearby neurovascular structures. A longitudinal incision was made in the A1 elif 1st using a #15 blade, then using tenotomy scissors under direct visualization. The A1 elif was noted to be thickened. Following our A1 elif release, we no longer saw any locking or catching of the digit with flexion and extension. The wounds were irrigated with normal saline, skin edges were reapproximated with some 5.0 nylon suture material and a sterile dressing was applied.?? The patient appears to have tolerated the procedure well and with no complications. All digits were well vascularized at the conclusion of the case.
[2023-05-07 13:47] VITALS: BMI 30.8
[2023-05-07 13:55] VITALS: BP 124/63; PULSE 79; RESP 18; TEMP 36.6; O2SAT 97
[2023-05-07 15:20] VITALS: BP 117/64; PULSE 80; RESP 18; O2SAT 98
--- NOTE | 2023-05-07 15:40 | MHC.SHP ---
Pre-Procedural Eval Section A Date of Service: 05/07/23 The patient is an INPATIENT: No Changes since office visit: No Cold of Flu in the past 2 weeks, No New Medical Problems, No Changes in Medication and No Patient answered all questions The History & Physical has been completed within 30 days and I have reviewed it.: Yes Section B Chief Complaint: Carpal tunnel syndrome, right upper limb, Trigger Allergies: Allergies Allergy/AdvReac Type Severity Reaction Status Date / Time No Known Allergies Allergy Verified 05/07/23 14:07 Plan I have reviewed the history and physical and performed a pertinent physical examination on my patient. No changes have occurred unless specified. Time Spent With Patient Time: Total time managing care of this patient today ____ minutes.
== END 2023-05-07 15:45 | disposition home or self-care (01) ==
PROVIDERS: PCP Internal Medicine; Visit Provider Orthopaedic Surgery
PROC: (CPT 64721; principal; 2023-05-07 12:20)
PROC: (CPT 26055; 2023-05-07 12:20)
DX: G56.01 Carpal tunnel syndrome, right upper limb (principal); M65.331 Trigger finger, right middle finger; R20.0 Anesthesia of skin; R20.2 Paresthesia of skin; I10 Essential (primary) hypertension; E11.65 Type 2 diabetes mellitus with hyperglycemia; K76.0 Fatty (change of) liver, not elsewhere classified; E66.9 Obesity, unspecified; Z68.31 Body mass index [BMI] 31.0-31.9, adult; Z79.84 Long term (current) use of oral hypoglycemic drugs; Z79.899 Other long term (current) drug therapy
CPT/HCPCS: 64721; 26055; J0171

== ENCOUNTER → 2023-05-07 11:00 | Outpatient (BNV) | payer MEDICARE, MEDICAID, SELFPAY | PROVIDERS: PCP Internal Medicine; Visit Provider Orthopaedic Surgery | DX: G56.01 Carpal tunnel syndrome, right upper limb (principal); M65.331 Trigger finger, right middle finger | CPT/HCPCS: 26055; 64721 ==

== ENCOUNTER 2023-05-19 14:29 | Outpatient (AMB) | payer MEDICARE, MEDICAID, SELFPAY ==
--- NOTE | 2023-05-19 14:49 | A.OFFVIS_ITS ---
Intake Intake Visit Reasons: RT CTR, LYNNE TR 05/07/23AR Intake Note: Em is a 52 year old year old right hand dominant female who presents today for her post op appointment s/p right CTR, LYNNE TR 05/07/23. Patient reports that she is noticing improvements after the surgery. Denies numbness and tingling. Allergies adhesive tape Allergy (Intermediate, Verified 05/19/23 14:56) Rash HPI RT LUPE, LYNNE TR 05/07/23AR HPI Details The patient is a 52-year-old woman who is status post a right carpal tunnel release and right middle finger trigger release. She is very pleased with the results of surgery. She says she no longer has nighttime symptoms, and the numbness has improved some, and she no longer has locking and catching of the right middle finger. She still has a little discomfort when trying to bring her fingers fully closed with tight fist. [facility] Medical History (Updated 05/19/23 @ 15:39 by Sue Rasmussen MD) Carpal tunnel syndrome of right wrist RUQ abdominal pain Menopause Menopause Cervical disc disease Alcohol abuse GERD (gastroesophageal reflux disease) Obesity (BMI 30-39.9) Hypercholesterolemia Vitamin D deficiency History of renal calculi Hypertension Type 2 diabetes mellitus with hyperglycemia Benign head tremor Fatty liver Depressed Obesity Diabetes Dystonia Surgical History Hx of colonoscopy S/P Botox injection History of carpal tunnel release History of extraction of renal calculus Family History Father Coronary artery disease Mother Emphysema lung Uterine cancer Paternal Uncle Myocardial infarction Paternal Aunt Breast cancer Myocardial infarction Brother CVA (cerebral vascular accident) Social History Housing: Apartment Alcohol intake: former Patient Tobacco Use Status: Never used Tobacco e-Cigarette/Vaping Use: Never Used Second Hand Smoke Exposure: No Advance Directives Date on File: 06/04/20 service: No Current occupational status: disabled Current occupation: rt hand Cognitive needs: No Hearing needs: No Vision needs: Yes Physical Exam Extrem Other: Patient was alert oriented and in no acute distress. Both incisions are healing well with no erythema drainage or evidence of infection. Sutures were removed and Steri-Strips applied. She can actively fully extend all digits and did not have flexion contracture of the middle finger. With encouragement she was able to bring all of her fingers closed to a tight fist and then back into full extension. No locking or catching was seen. Cap refill brisk and sensation improved in the median nerve distribution. Assessment & Plan Assessment & Plan (1) Trigger finger, right middle finger: Code(s): M65.331 - Trigger finger, right middle finger Plan Assessment and plan: 1. Right carpal tunnel syndrome status post carpal tunnel release Date of surgery 05/07/2023 Preoperatively severe with dense numbness in the right index finger and thumb Today with improved sensation 2. Right middle finger trigger finger status post release Date of surgery 05/07/2023 She no longer has locking and catching I educated her about the postoperative course Sutures removed and Steri-Strips applied. She will continue work on range of motion. Follow-up p.r.n. Coding Level of Care Code Global (11211) Diagnoses Trigger finger, right middle finger M65.331
== END 2023-05-19 15:16 | disposition home or self-care (01) ==
PROVIDERS: PCP Internal Medicine; Visit Provider Orthopaedic Surgery
DX: M65.331 Trigger finger, right middle finger (principal)
CPT/HCPCS: 99024

== ENCOUNTER → 2023-05-19 14:29 | Outpatient (BNVA) | payer MEDICARE, MEDICAID, SELFPAY | PROVIDERS: PCP Internal Medicine; Visit Provider Orthopaedic Surgery ==

== ENCOUNTER 2023-07-21 13:37 | Outpatient (AMB) | payer MEDICARE, MEDICAID, SELFPAY ==
--- NOTE | 2023-07-21 13:39 | A.OFFVIS_ITS ---
Intake VS Expanded 07/21/23 13:40 Height 5 ft 1 in Weight 165 lb 12.602 oz BMI 31.3 Intake Visit Reasons: T2DM Allergies adhesive tape Allergy (Intermediate, Verified 05/19/23 14:56) Rash HPI Nutrition Presentation Details Pt presents for MNT f/u for T2DM, obesity Pt needs to resume meal planning. Most Recent Diabetes Results: No Data to Display [facility] Medical History (Updated 05/19/23 @ 15:39 by Sue Rasmussen MD) Carpal tunnel syndrome of right wrist RUQ abdominal pain Menopause Menopause Cervical disc disease Alcohol abuse GERD (gastroesophageal reflux disease) Obesity (BMI 30-39.9) Hypercholesterolemia Vitamin D deficiency History of renal calculi Hypertension Type 2 diabetes mellitus with hyperglycemia Benign head tremor Fatty liver Depressed Obesity Diabetes Dystonia Surgical History Hx of colonoscopy S/P Botox injection History of carpal tunnel release History of extraction of renal calculus Family History Father Coronary artery disease Mother Emphysema lung Uterine cancer Paternal Uncle Myocardial infarction Paternal Aunt Breast cancer Myocardial infarction Brother CVA (cerebral vascular accident) Housing: Apartment Alcohol intake: former Patient Tobacco Use Status: Never used Tobacco e-Cigarette/Vaping Use: Never Used Second Hand Smoke Exposure: No Advance Directives Date on File: 06/04/20 service: No Current occupational status: disabled Current occupation: rt hand Cognitive needs: No Hearing needs: No Vision needs: Yes Assessment & Plan Assessment & Plan (1) Type 2 diabetes mellitus with hyperglycemia: Comment: A1c at 7.6% on 03/09/23 Code(s): E11.65 - Type 2 diabetes mellitus with hyperglycemia Qualifiers: Diabetes mellitus termite control representative insulin use: without custodial use Qualified Code(s): E11.65 - Type 2 diabetes mellitus with hyperglycemia Plan: Educate Pt on following healthy plate method? ? Used wt?: ? 76 ? ? ? kg (74 kg on 04/14/23) Est kcal as per MSJ: 1639 (40% carb, 30% fat/prot) Est fluid needs: 1900 ml/d (25 ml/kg bw) Rec fiber:? increase to 8-10 g per day and gradually increase to 25 g/d? or? as tolerated? Rec Na: < ? 2000 mg /d Educate patient on:? (R= Reviewed,? V = verbalizes understanding ? N/R= Needs review? ? N/A= not applicable) * Food sources of carbohydrates and serving adequate serving sizes :??R * Difference between complex carbohydrates and simple carbohydrates, role of fiber:??R * Differences between fats (MUFA/PUFA/saturated fats, trans fats) and food sources of various fats:??? R * Food sources of sodium and salt and? healthy modifications for heart health and kidney health: R, V * Vitamins and minerals:? R * How to interpret food labels:? R, V * Healthy Plate method concept:??R, V? * Physical activity: benefits and precaution:? R, V Patient Instructions: Resume working on reducing total carbohydrate at meal to less than 60 g, measure food portion sizes. Read food labels, limit to 2 snack a day consisting of 20 g carbs or less Drink water , low sugar beverages with meals/snacks monitor your blood sugar fasting and 2 hours after a meal goal weight loss by next follow up 5-6 lbs less Referred to quality life program Coding Level of Care Code Nutr Indiv Subseq (57615) Diagnoses Type 2 diabetes mellitus with hyperglycemia, without long-term current use of insulin E11.65 Diabetes mellitus termite control representative insulin use: without termite control representative use Time Spent (min) 30
[2023-07-21 13:40] VITALS: BMI 31.3
== END 2023-07-21 14:20 | disposition home or self-care (01) ==
PROVIDERS: PCP Internal Medicine; Visit Provider Dietitian, Registered
DX: E11.65 Type 2 diabetes mellitus with hyperglycemia (principal)

== ENCOUNTER → 2023-07-21 13:37 | Outpatient (BNVA) | payer MEDICARE, MEDICAID, SELFPAY | PROVIDERS: PCP Internal Medicine; Visit Provider Dietitian, Registered | DX: E11.65 Type 2 diabetes mellitus with hyperglycemia (principal) | CPT/HCPCS: 97803 ==

== ENCOUNTER 2023-09-17 14:08 | Outpatient (AMB) | payer OTHER, SELFPAY ==
[2023-09-17 14:10] VITALS: BP 122/74; PULSE 74; O2SAT 100; BMI 31.9
--- NOTE | 2023-09-17 14:10 | A.OFFPC_ITS ---
Vital Signs 09/17/23 14:10 Height 5 ft 1 in Weight 169 lb BMI 31.9 BP 122/74 Blood Pressure Location Lt brachial Position Sitting Pulse 74 Pulse Source Pulse Oximeter Pulse Oximetry (%) 100 Oxygen Delivery Method Room Air Intake Visit Reasons: DM , Cholesterol dystonia Secretary Of State Required: No Allergies adhesive tape Allergy (Intermediate, Verified 09/17/23 14:11) Rash Medication List - Last Reconciled 09/17/23 by Mao Sánchez MD baclofen 10 mg PO BID [blood glucose machine As directed] blood pressure monitor (Blood Pressure Kit) As directed blood sugar diagnostic (FreeStyle Lite Strips) 1 strip miscellaneous BID cholecalciferol (vitamin D3) 25 mcg PO DAILY empagliflozin 25 mg PO DAILY 30 days gabapentin 300 mg PO TID glipizide 5 mg PO DAILY [glucometer strips As directed] [lancets As directed] lancets (FreeStyle Lancets) As directed check BS BID metformin 1,000 mg PO BID 90 days multivitamin 1 tab PO DAILY oxycodone 5 mg PO Q6H PRN propranolol 10 mg PO BID simvastatin 5 mg PO BEDTIME tramadol 50 mg PO BID PRN Tobacco use date assessed: 09/17/23 Dental Screening Dental Screen Date: 09/17/23 Did you have a dental visit in the last 12 months?: Yes Did you have a dental problem in the last 6 months where you did not have access to dental care?: No Was dental information given to patient?: Patient has dentist HPI DM , Cholesterol dystonia HPI Details 53-year-old obese female with uncontroll ed diabetes mellitus, fatty liver hypertension hypercholesterolemia GERD dystonia coming in for follow-up last seen in February 2023. Patient's mammogram is up-to-date and due this month colonoscopy is up-to-date do this year review of the notes has seen Orthopedics for the trigger finger and status post right carpal tunnel release 05/07/2023 right trigger finger status post release 05/07/2023 Problematic about dystonia doctor - was seeing [facility] in [facility]. [facility] Medical History (Updated 09/17/23 @ 14:39 by Mao Sánchez MD) Carpal tunnel syndrome of right wrist RUQ abdominal pain Menopause Menopause Cervical disc disease Alcohol abuse GERD (gastroesophageal reflux disease) Obesity (BMI 30-39.9) Hypercholesterolemia Vitamin D deficiency History of renal calculi Hypertension Type 2 diabetes mellitus with hyperglycemia Benign head tremor Fatty liver Depressed Obesity Diabetes Dystonia Surgical History Hx of colonoscopy S/P Botox injection History of carpal tunnel release History of extraction of renal calculus Family History Father Coronary artery disease Mother Emphysema lung Uterine cancer Paternal Uncle Myocardial infarction Paternal Aunt Breast cancer Myocardial infarction Brother CVA (cerebral vascular accident) Social History Housing: Apartment Alcohol intake: former Patient Tobacco Use Status: Never used Tobacco e-Cigarette/Vaping Use: Never Used Second Hand Smoke Exposure: No Advance Directives Date on File: 06/04/20 service: No Current occupational status: disabled Current occupation: rt hand Cognitive needs: No Hearing needs: No Vision needs: Yes Questionnaire Thrive Questionnaire Date Thrive assessed: 09/17/23 AUDIT C Alcohol Use Questionnaire (AUDIT-C) 1. How often do you have a drink containing alcohol?: Monthly or less 2. How many drinks containing alcohol do you have on a typical day when you are drinking?: 1 or 2 3. How often do you have six or more drinks on one occasion?: Never Total Score: 1 ADRIAN-7 AMB Questionnaire ADRIAN-7 Date ADRIAN - 7 assessed: 09/17/23 Source: Developed by Drs. Pino Mcneill, Joann Ferraro, Law Osborne and colleagues, with an educational jessee from [employer]. Physical exam (Primary Care) Vital Signs: Last Vital Signs Pulse 74 09/17/23 14:10 BP 122/74 09/17/23 14:10 Pulse Ox 100 09/17/23 14:10 Oxygen Delivery Method Room Air 09/17/23 14:10 BMI result Body Mass Index 31.9 Tobacco/Smoking Status: Tobacco use Status Tobacco use date assessed 09/17/23 09/17/23 14:13 Patient Tobacco Use Status Never used Tobacco 09/17/23 14:13 e-Cigarette/Vaping Use Never Used 09/17/23 14:13 Thrive Assessment: Date of Thrive Assessment Date Thrive assessed 09/17/23 09/17/23 14:13 Const General: alert; No acute distress Eyes Conjunctivae: conjunctivae normal Resp Auscultation: clear to auscultation bilaterally Cardio Rate: regular rate Rhythm: regular rhythm GI Inspection: Yes normal to inspection Extrem General: Yes normal to inspection and No edema Results AMB Hemoglobin A1c AMB Hemoglobin A1c 8.5 % Last Edit by EVANS Cheney on 09/17/23 14:23 Results Reviewed Results Reviewed: Laboratory Last Values Hgb A1c (Clinic) 8.5 % (4.0-6.0) H 09/17/23 13:36 Assessment and Plan Assessment & Plan (1) Type 2 diabetes mellitus with hyperglycemia: Comment: A1c at 7.6% on 03/09/23 Code(s): E11.65 - Type 2 diabetes mellitus with hyperglycemia Qualifiers: Diabetes mellitus mcfp insulin use: without technician terminal and repeater use Qualified Code(s): E11.65 - Type 2 diabetes mellitus with hyperglycemia Plan: Decrease the amount of carbohydrate intake, pasta, bread, rice and potatoes are all sugar and that is aside from all the sweet stuff, remember that fruits are good but they are Sweet also. Hemoglobin A1c goal of less than 6.5. Patient is on Jardiance 25 mg once a day glipizide 5 mg once a day metformin a 1000 mg twice a day (2) Fatty liver: Comment: a 50-year-old overweight, diabetic female with past history of alcohol use follows up after recent ultrasound. Ultrasound does reveal hepatic steatosis, no lesions. Liver enzymes were normal AST/ALT . Code(s): K76.0 - Fatty (change of) liver, not elsewhere classified Plan: Low-fat diet and exercise (3) Hypertension: Code(s): I10 - Essential (primary) hypertension Qualifiers: Hypertension type: essential hypertension Qualified Code(s): I10 - Essential (primary) hypertension Plan: Continue with blood pressure medication. Decrease salt intake and exercise patient takes propranolol 10 mg twice a day (4) Hypercholesterolemia: Code(s): E78.00 - Pure hypercholesterolemia, unspecified Plan: Avoid fried foods, chicken skin, eggs, butter margarine, pastries and meat. Be it pork or beef they have a lot of cholesterol LDL goal of less than 100 on simvastatin 5 mg once a day (5) GERD (gastroesophageal reflux disease): Code(s): K21.9 - Gastro-esophageal reflux disease without esophagitis Qualifiers: Esophagitis presence: without esophagitis Qualified Code(s): K21.9 - Gastro-esophageal reflux disease without esophagitis Plan: Avoid the foods that causes that usually spicy foods, tomato products, juices, coffee, soda and foods that your sensitive to. After eating do not lie down, allow 3-4 hours before in lie down. And keep the head of bed above 30 degrees to avoid the acid from going up. (6) Trigger finger, right middle finger: Comment: May 2023 trigger finger release Code(s): M65.331 - Trigger finger, right middle finger Plan: Resolve (7) Carpal tunnel syndrome of right wrist: Comment: May 2023 Code(s): G56.01 - Carpal tunnel syndrome, right upper limb Plan: Resolved (8) Tubulovillous adenoma of colon: Comment: 08/19 3.5 - 4 cms TVA with focal HGD in the sigmoid colon Code(s): D12.6 - Benign neoplasm of colon, unspecified Plan: reminded (9) Breast cancer screening by mammogram: Code(s): Z12.31 - Encounter for screening mammogram for malignant neoplasm of breast Plan: schedule to get the mammo next week Orders: Orders Comprehensive Met. Panel 2 Months E11.65 - Type 2 diabetes mellitus with hy perglycemia Microalbumin, Random (w Creat) 2 Months E11.65 - Type 2 diabetes mellitus with hyperglycemia Creatinine Urine 2 Months E11.65 - Type 2 diabetes mellitus with hyperglycemia Lipid Panel 2 Months E11.65 - Type 2 diabetes mellitus with hyperglycemia, E78.00 - Pure hypercholesterolemia, unspecified AMB Hemoglobin A1c Today E11.65 - Type 2 diabetes mellitus with hyperglycemia Complete Blood Count Auto Diff 2 Months E11.65 - Type 2 diabetes mellitus with h yperglycemia Free T4 (Free Thyroxine) 2 Months E11.65 - Type 2 diabetes mellitus with hyperglycemia Thyroid Stimulating Hormone 2 Months E11.65 - Type 2 diabetes mellitus with hyperglycemia Vitamin B12 and Folate 2 Months E11.65 - Type 2 diabetes mellitus with hyperglycemia Hemoglobin A1c 2 Months E11.65 - Type 2 diabetes mellitus with hyperglycemia Medications: Refilled glipizide 5 mg PO DAILY 90 tabs 2RF E11.65 - Type 2 diabetes mellitus with hyperglycemia metformin 1,000 mg PO BID 90 days 180 tabs 2RF Coding Level of Care Code Est Pt Level 4 (57929) Diagnoses Type 2 diabetes mellitus with hyperglycemia, without long-term current use of insulin E11.65 Diabetes mellitus technician terminal and repeater insulin use: without technician terminal and repeater use Fatty liver K76.0 Essential hypertension I10 Hypertension type: essential hypertension Hypercholesterolemia E78.00 Gastroesophageal reflux disease without esophagitis K21.9 Esophagitis presence: without esophagitis Trigger finger, right middle finger M65.331 Carpal tunnel syndrome of right wrist G56.01 Tubulovillous adenoma of colon D12.6 Breast cancer screening by mammogram Z12.31
== END 2023-09-17 14:47 | disposition home or self-care (01) ==
PROVIDERS: PCP Internal Medicine; Visit Provider Internal Medicine
DX: E11.65 Type 2 diabetes mellitus with hyperglycemia (principal); K76.0 Fatty (change of) liver, not elsewhere classified; I10 Essential (primary) hypertension; E78.00 Pure hypercholesterolemia, unspecified; K21.9 Gastro-esophageal reflux disease without esophagitis; M65.331 Trigger finger, right middle finger; G56.01 Carpal tunnel syndrome, right upper limb; D12.6 Benign neoplasm of colon, unspecified; Z12.31 Encounter for screening mammogram for malignant neoplasm of breast
CPT/HCPCS: 83036; 99214

== ENCOUNTER → 2023-09-21 13:00 | Outpatient (BNV) | payer OTHER, SELFPAY | PROVIDERS: PCP Internal Medicine; Visit Provider Radiology Diagnostic Radiology | DX: Z12.31 Encounter for screening mammogram for malignant neoplasm of breast (principal) | CPT/HCPCS: 77063; 77067 ==

== ENCOUNTER 2023-09-21 13:06 | Outpatient (REF) | payer OTHER, SELFPAY | END 2023-09-21 13:07 | disposition home or self-care (01) | LOC: HO.MAMMO 13:06 | PROVIDERS: PCP Internal Medicine; Visit Provider Internal Medicine | DX: Z12.31 Encounter for screening mammogram for malignant neoplasm of breast (principal) | CPT/HCPCS: 77063; 77067 ==

== ENCOUNTER 2023-10-21 13:57 | Outpatient (AMB) | payer OTHER, SELFPAY ==
--- NOTE | 2023-10-21 14:01 | A.OFFVIS_ITS ---
Intake VS Expanded 10/21/23 14:02 Height 5 ft 1 in Weight 169 lb 12.095 oz BMI 32.1 Intake Visit Reasons: T2DM/CONFIRMED Allergies adhesive tape Allergy (Intermediate, Verified 09/17/23 14:11) Rash HPI Nutrition Presentation Details Pt presents for MNT 6 month f/u for T2DM Pt reports not monitoring blood glucose and admits to dietary indiscretion Most Recent Diabetes Results: No Data to Display PFSH Medical History (Updated 09/17/23 @ 14:39 by Mao Sánchez MD) Carpal tunnel syndrome of right wrist RUQ abdominal pain Menopause Menopause Cervical disc disease Alcohol abuse GERD (gastroesophageal reflux disease) Obesity (BMI 30-39.9) Hypercholesterolemia Vitamin D deficiency History of renal calculi Hypertension Type 2 diabetes mellitus with hyperglycemia Benign head tremor Fatty liver Depressed Obesity Diabetes Dystonia Surgical History Hx of colonoscopy S/P Botox injection History of carpal tunnel release History of extraction of renal calculus Family History Father Coronary artery disease Mother Emphysema lung Uterine cancer Paternal Uncle Myocardial infarction Paternal Aunt Breast cancer Myocardial infarction Brother CVA (cerebral vascular accident) Social History Housing: Apartment Alcohol intake: former Patient Tobacco Use Status: Never used Tobacco e-Cigarette/Vaping Use: Never Used Second Hand Smoke Exposure: No Advance Directives Date on File: 06/04/20 service: No Current occupational status: disabled Current occupation: rt hand Cognitive needs: No Hearing needs: No Vision needs: Yes Assessment & Plan Assessment & Plan (1) Type 2 diabetes mellitus with hyperglycemia: Comment: A1c at 7.6% on 03/09/23 Code(s): E11.65 - Type 2 diabetes mellitus with hyperglycemia Qualifiers: Diabetes mellitus senior care insulin use: without social work lecturer use Qualified Code(s): E11.65 - Type 2 diabetes mellitus with hyperglycemia Plan: Educate Pt on following healthy plate method? ? Used wt?: ? 76 ? ? ? kg (74 kg on 04/14/23), 77 kg (10/2023) Est kcal as per MSJ: 1639 (40% carb, 30% fat/prot) Est fluid needs: 1900 ml/d (25 ml/kg bw) Rec fiber:? increase to 8-10 g per day and gradually increase to 25 g/d? or? as tolerated? Rec Na: < ? 2000 mg /d Educate patient on:? (R= Reviewed,? V = verbalizes understanding ? N/R= Needs review? ? N/A= not applicable) * Food sources of carbohydrates and serving adequate serving sizes :??R * Difference between complex carbohydrates and simple carbohydrates, role of fiber:??R * Differences between fats (MUFA/PUFA/saturated fats, trans fats) and food sources of various fats:??? R * Food sources of sodium and salt and? healthy modifications for heart health and kidney health: R, V * Vitamins and minerals:? R * How to interpret food labels:? R, V * Healthy Plate method concept:??R, V? * Physical activity: benefits and precaution:? R, V * review BG goal as per ADA (80-130 in the fasting state and 80-180 , 2 hours after a meal) Patient Instructions: resume monitoring your blood sugar, alternate between fasting and 2 hours after a meal practice mindful eating strategies Choose foods with sugars/calories - see list of low calorie options as snack keep hydrated, drinking water, water infused with fruit /herbs Coding Level of Care Code Nutr Indiv Subseq ([id number]) Diagnoses Type 2 diabetes mellitus with hyperglycemia, without long-term current use of insulin E11.65 Diabetes mellitus senior care insulin use: without social work lecturer use Time Spent (min) 20
[2023-10-21 14:02] VITALS: BMI 32.1
== END 2023-10-21 14:34 | disposition home or self-care (01) ==
PROVIDERS: PCP Internal Medicine; Visit Provider Dietitian, Registered
DX: E11.65 Type 2 diabetes mellitus with hyperglycemia (principal)

== ENCOUNTER → 2023-10-21 13:57 | Outpatient (BNVA) | payer OTHER, SELFPAY | PROVIDERS: PCP Internal Medicine; Visit Provider Dietitian, Registered | DX: E11.65 Type 2 diabetes mellitus with hyperglycemia (principal) | CPT/HCPCS: 97803 ==

== ENCOUNTER 2023-11-17 14:39 | Outpatient (REF) | payer OTHER, SELFPAY ==
[2023-11-17 14:58] LABS: MANUAL DIFF FLAG NO
[2023-11-17 15:43] LABS: Basophils Percent Auto 0.6 % (0-2); Eosinophils Absolute Auto 0.1 X10*3/uL (0.0-0.4); Eosinophils Percent Auto 1.8 % (0-4); Hematocrit 43.7 % (37.0-47.0); Hemoglobin 14.4 g/dl (12.0-16.0); Imm Gran Abs Auto 0.02 X10*3/uL (0.00-0.03); Imm Gran Pct Auto 0.3 % (0.0-0.4); Lymphocytes Absolute Auto 2.1 X10*3/uL (1.2-4.9); Lymphocytes Percent Auto 32.5 % (20-40); Mean Corpuscular Hemoglobin 28.9 pg (27.0-33.0); Mean Corpuscular Volume 87.8 fL (80.0-98.0); Monocytes Absolute Auto 0.6 X10*3/uL (0.1-1.2); Monocytes Percent Auto 9.5 % (2-11); Neutrophils Absolute Auto 3.6 x10*3/uL (2.0-8.3); Neutrophils Percent Auto 55.3 % (45-73); Platelet Count 260 X10*3/uL (160-400); Red Blood Count 4.98 X10*6/uL (4.20-5.50); Red Cell Distribution Width 13.2 % (11.0-16.0); White Blood Count 6.5 X10*3/uL (4.8-10.8)
[2023-11-17 15:51] LABS: Estimated Average Glucose 186 mg/dL; Hemoglobin A1c % 8.1 % (<6.0)
[2023-11-17 16:13] LABS: Alanine Aminotransferase 26 U/L (0-31); Albumin Level 4.5 g/dL (3.5-5.0); Alkaline Phosphatase 73 U/L (39-117); Anion Gap 14 (12-20); Aspartate Amino Transferase 20 U/L (5-31); Bilirubin Total 0.6 mg/dL (0.0-1.0); Blood Urea Nitrogen 11 mg/dL (9-16); Calcium 9.9 mg/dL (8.4-10.2); Carbon Dioxide 27 mmol/L (22-29); Chloride 102 mmol/L (96-108); Cholesterol 170 mg/dL (<200); Estimated Glomerular Filt Rate > 60; Glucose Random 155 mg/dL (60-115); HDL Cholesterol 82 mg/dL (>40); LDL Cholesterol Calculated 73 mg/dL (<100); Potassium 4.2 mmol/L (3.3-5.1); Sodium 139 mmol/L (135-145); Total Protein 7.7 g/dL (6.5-8.0); Triglycerides 77 mg/dL (<150)
[2023-11-17 16:29] LABS: Free T4 (Free Thyroxine) 1.02 ng/dL (0.71-1.85); Thyroid Stimulating Hormone 1.29 uIU/mL (0.32-4.0)
[2023-11-17 16:38] LABS: Folate 14.1 ng/mL (> or = 4.0); Vitamin B12 734 pg/mL (200-900)
[2023-11-17 16:53] LABS: Creatinine Urine 31.73 mg/dL; Microalbum/Creatinine Ratio Ur 18.9 ug/mg cr (<30)
== END 2023-11-17 14:40 | disposition home or self-care (01) ==
LOC: HO.LAB 14:39
PROVIDERS: PCP Internal Medicine; Visit Provider Internal Medicine
DX: E11.65 Type 2 diabetes mellitus with hyperglycemia (principal); E78.00 Pure hypercholesterolemia, unspecified
CPT/HCPCS: 36415; 80053; 80061; 82043; 82570; 82607; 82746; 83036; 84439; 84443; 85025

== ENCOUNTER 2023-11-19 12:24 | Outpatient (AMB) | payer OTHER, SELFPAY ==
[2023-11-19 12:31] VITALS: BP 112/78; PULSE 71; O2SAT 99; BMI 31.6
--- NOTE | 2023-11-19 12:31 | MHC.PC.OV ---
Vital Signs 11/19/23 12:31 Height 5 ft 1 in Weight 167 lb 0.4 oz BMI 31.6 BP 112/78 Blood Pressure Location Lt brachial Position Sitting Pulse 71 Pulse Source Pulse Oximeter Pulse Oximetry (%) 99 Oxygen Delivery Method Room Air Intake Visit Reasons: pe Intake Note: Patient is here today for a physical. Student Affairs Dean Required: No Allergies adhesive tape Allergy (Intermediate, Verified 11/19/23 12:31) Rash Medication List - Last Reconciled 11/19/23 by Mao Sánchez MD baclofen 10 mg PO BID [blood glucose machine As directed] blood pressure monitor (Blood Pressure Kit) As directed blood sugar diagnostic (FreeStyle Lite Strips) 1 strip miscellaneous BID cholecalciferol (vitamin D3) 25 mcg PO DAILY empagliflozin 25 mg PO DAILY 30 days gabapentin 300 mg PO TID glipizide 5 mg PO DAILY [glucometer strips As directed] [lancets As directed] lancets (FreeStyle Lancets) As directed check BS BID metformin 1,000 mg PO BID 90 days multivitamin 1 tab PO DAILY propranolol 10 mg PO BID simvastatin 5 mg PO BEDTIME tramadol 50 mg PO BID PRN Tobacco use date assessed: 11/19/23 Dental Screening Dental Screen Date: 11/19/23 Did you have a dental visit in the last 12 months?: Yes Did you have a dental problem in the last 6 months where you did not have access to dental care?: No Was dental information given to patient?: Patient has dentist HPI pe HPI Details 53 year old obese female with uncontrolled diabetes mellitus hypertension hypercholesterolemia GERD and dystonia last seen in August 2023. Patient is here for physical exam mammogram is up-to-date patient was advised to see the road roller engineer for colonoscopy again.. will be ff up with neurology in [place] 11/30/2023 [facility] Medical History (Updated 11/19/23 @ 13:00 by Mao Sánchez MD) Carpal tunnel syndrome of right wrist RUQ abdominal pain Menopause Menopause Cervical disc disease Alcohol abuse GERD (gastroesophageal reflux disease) Obesity (BMI 30-39.9) Hypercholesterolemia Vitamin D deficiency History of renal calculi Hypertension Type 2 diabetes mellitus with hyperglycemia Benign head tremor Fatty liver Depressed Obesity Diabetes Dystonia Surgical History Hx of colonoscopy S/P Botox injection History of carpal tunnel release History of extraction of renal calculus Family History Father Coronary artery disease Mother Emphysema lung Uterine cancer Paternal Uncle Myocardial infarction Paternal Aunt Breast cancer Myocardial infarction Brother CVA (cerebral vascular accident) Social History Housing: Apartment Alcohol intake: former Patient Tobacco Use Status: Never used Tobacco e-Cigarette/Vaping Use: Never Used Second Hand Smoke Exposure: No Advance Directives Date on File: 06/04/20 service: No Current occupational status: disabled Current occupation: rt hand Cognitive needs: No Hearing needs: No Vision needs: Yes Questionnaire PHQ-9 Over the last 2 weeks, how often have you been bothered by any of the following problems? 1. Little interest or pleasure in doing things: not at all 2. Feeling down, depressed, or hopeless: not at all 3. Trouble falling or staying asleep, or sleeping too much: not at all 4. Feeling tired or having little energy: not at all 5. Poor appetite or overeating: not at all 6. Feeling bad about yourself - or that you are a failure or have let yourself or your family down: not at all 7. Trouble concentrating on things, such as reading the newspaper or watching television: not at all 8. Moving or speaking so slowly that other people could have noticed. Or the opposite - being so fidgety or restless that you have been moving around a lot more than usual: not at all 9. Thoughts that you would be better off or of hurting yourself in some way: not at all Total score: 0 Depression Screening Interpretation: Negative Depression Screening Done: Yes Source: Developed by Drs. Pino Mcneill, Joann Ferraro, Law Osborne and colleagues, with an educational jessee from [employer]. Thrive Questionnaire Date Thrive assessed: 09/17/23 I am a: Patient What is your living situation today?: I have a steady place to live Within the past 12 months, did the food you bought not last and you didn't have the money to get more?: Never true Within the past 12 months, did you worry whether your food would run out before you got money to buy more?: Never true Do you have trouble paying for medicines?: No Do you have trouble getting transportation to medical appointments?: No Do you have trouble paying your heating and electricity bill?: No Do you have trouble taking care of your child, family member or friend?: No Do you have trouble with day-to-day activities such as bathing, preparing meals, shopping, managing finances, etc.?: No Are you currently unemployed and looking for a job?: No Are you interested in more education?: No Please select the resources that you would like help with: None THRIVE Score: 0 AUDIT C Alcohol Use Questionnaire (AUDIT-C) 1. How often do you have a drink containing alcohol?: Monthly or less 2. How many drinks containing alcohol do you have on a typical day when you are drinking?: 1 or 2 3. How often do you have six or more drinks on one occasion?: Never Total Score: 1 ADRIAN-7 AMB Questionnaire ADRIAN-7 Date ADRIAN - 7 assessed: 09/17/23 Feeling nervous, anxious, or on edge: 0 = Not at all Not being able to stop or control worryin = Not at all Worrying too much about different things: 0 = Not at all Trouble relaxin = Not at all Being so restless that it is hard to sit still: 0 = Not at all Becoming easily annoyed or irritable: 0 = Not at all Feeling afraid as if something awful might happen: 0 = Not at all Total ADRIAN-7 score (0-4 normal; 5-9 mild; 10-14 moderate; 15-21 severe): 0 Source: Developed by Drs. Pino Mcneill, Joann Ferraro, Law Osborne and colleagues, with an educational jessee from [employer]. Review of Systems Const Denies poor appetite and Denies weakness Eyes Denies no additional complaints ENT Reports Normal hearing present, Denies dizziness, Denies nasal congestion, Denies tinnitus and Denies sore throat Card Denies chest pain, Denies syncope, Denies rapid heart rate and Denies dyspnea Resp Denies cough and Denies dyspnea GI Denies change in stool character, Reports constipation, Denies diarrhea, Denies nausea and Denies vomiting Denies urinary frequency, Denies difficulty voiding and Denies dysuria Neuro Reports Normal hearing present, Denies confusion, Denies dizziness, Denies syncope and Denies weakness Psych Denies confusion Physical exam (Primary Care) Vital Signs: Oxygen Delivery Method Room Air 11/19/23 12:31 BMI result Body Mass Index 31.6 Tobacco/Smoking Status: Tobacco use Status Tobacco use date assessed 09/17/23 09/17/23 14:13 Patient Tobacco Use Status Never used Tobacco 09/17/23 14:13 e-Cigarette/Vaping Use Never Used 09/17/23 14:13 Depression Screening Interpretation: Negative Thrive Assessment: Date of Thrive Assessment Date Thrive assessed 09/17/23 09/17/23 14:13 Const General: No confusion Orientation/consciousness: No confusion HENMT Head: Yes normocephalic Ears: external ears normal and TM's normal bilaterally Face and sinus: Yes normal facial exam Mouth: moist mucous membranes Throat: Yes tonsils normal Eyes Conjunctivae: conjunctivae normal Pupils: Equal, round and reactive pupils present and Pupil accommodation reflex normal Direct Ophthalmoscopy: normal light reflex Neck Neck: No lymphadenopathy Thyroid: Thyroid normal Chest Chest palpation & inspection: normal inspection of the chest Resp Effort & Inspection: normal respiratory effort and no audible wheezes Auscultation: clear to auscultation bilaterally, no crackles, no wheezes and lung sounds not diminished Cardio Rate: regular rate Rhythm: regular rhythm Peripheral pulses: radial pulses present and dorsalis pedis present GI Other: colon test this year Palpation (GI): no masses Auscultation: normal bowel sounds and normoactive bowel sounds Rectal Exam - Female: deferred Back/Spine/Pelvis Other: pedal pulses and pin prick N Skin General skin exam: no rashes or lesions noted Rashes: no rashes Neuro General: No confusion Cranial nerves: Yes Equal, round and reactive pupils present and Yes Normal hearing present Cognition (Neuro): normal cognition Gait exam (Neuro): Normal gait present Motor exam (neuro): 5/5 motor strength present throughout Deep tendon reflexes (DTR's): Right brachioradialis reflex intensity grade: 2+, Left brachioradialis reflex intensity grade: 2+, Right patellar reflex intensity grade: 2+ and Left patellar reflex intensity grade: 2+ Extrem General: No edema Assessment and Plan Assessment & Plan (1) Annual physical exam: Code(s): Z00.00 - Encounter for general adult medical examination without abnormal findings (2) Type 2 diabetes mellitus with hyperglycemia: Comment: A1c at 7.6% on 03/09/23 [facility] Code(s): E11.65 - Type 2 diabetes mellitus with hyperglycemia Qualifiers: Diabetes mellitus terminal operations supervisor insulin use: without custodial use Qualified Code(s): E11.65 - Type 2 diabetes mellitus with hyperglycemia Plan: Decrease the amount of carbohydrate intake, pasta, bread, rice and potatoes are all sugar and that is aside from all the sweet stuff, remember that fruits are good but they are Sweet also. Presently on Jardiance 25 mg once a day glipizide 5 mg once a day metformin a 1000 mg twice a day with the patient that diabetes not controlled but patient declined any additional medication for now. Patient knows the problem. Patient is up-to-date with Ophthalmology. (3) Hypertension: Code(s): I10 - Essential (primary) hypertension Qualifiers: Hypertension type: essential hypertension Qualified Code(s): I10 - Essential (primary) hypertension Plan: Continue with blood pressure medication. Decrease salt intake and exercise presently taking propranolol 10 mg twice a day only (4) Hypercholesterolemia: Code(s): E78.00 - Pure hypercholesterolemia, unspecified Plan: Avoid fried foods, chicken skin, eggs, butter margarine, pastries and meat. Be it pork or beef they have a lot of cholesterol LDL goal of less than 100 on simvastatin 5 mg once a day (5) GERD (gastroesophageal reflux disease): Code(s): K21.9 - Gastro-esophageal reflux disease without esophagitis Qualifiers: Esophagitis presence: without esophagitis Qualified Code(s): K21.9 - Gastro-esophageal reflux disease without esophagitis Plan: Avoid the foods that causes that usually spicy foods, tomato products, juices, coffee, soda and foods that your sensitive to. After eating do not lie down, allow 3-4 hours before in lie down. And keep the head of bed above 30 degrees to avoid the acid from going up. (6) Tubulovillous adenoma of colon: Comment: 08/19 3.5 - 4 cms TVA with focal HGD in the sigmoid colon Code(s): D12.6 - Benign neoplasm of colon, unspecified Plan: Patient is reminded about colonoscopy this year (7) Dystonia: Comment: Cervical, Sees Dr Siegel in [place] Code(s): G24.9 - Dystonia, unspecified Plan: Continue to follow-up with Neurology Coding Level of Care Code Est Pt Prev Care 40-64y([id number]) Diagnoses Annual physical exam Z00.00 Type 2 diabetes mellitus with hyperglycemia, without long-term current use of insulin E11.65 Diabetes mellitus custodial insulin use: without terminal operations supervisor use Essential hypertension I10 Hypertension type: essential hypertension Hypercholesterolemia E78.00 Gastroesophageal reflux disease without esophagitis K21.9 Esophagitis presence: without esophagitis Tubulovillous adenoma of colon D12.6 Dystonia G24.9
== END 2023-11-19 13:03 | disposition home or self-care (01) ==
PROVIDERS: PCP Internal Medicine; Visit Provider Internal Medicine
DX: Z00.00 Encounter for general adult medical examination without abnormal findings (principal); E11.65 Type 2 diabetes mellitus with hyperglycemia; I10 Essential (primary) hypertension; E78.00 Pure hypercholesterolemia, unspecified; K21.9 Gastro-esophageal reflux disease without esophagitis; D12.6 Benign neoplasm of colon, unspecified; G24.9 Dystonia, unspecified
CPT/HCPCS: 99396

== ENCOUNTER 2024-02-08 14:02 | Outpatient (AMB) | payer OTHER, SELFPAY ==
[2024-02-08 14:10] VITALS: BMI 32.3
--- NOTE | 2024-02-08 14:10 | A.OFFVIS_ITS ---
VS Expanded 02/08/24 14:10 Height 5 ft 1 in Weight 171 lb 1.259 oz BMI 32.3 Intake Visit Reasons: T2DM/LVM Allergies adhesive tape Allergy (Intermediate, Verified 11/19/23 12:31) Rash Nutrition Presentation Details: Pt presents for MNT f/u for t2dm Pt reports needing a glucometer, request sent to MD Pt reports working on increasing physical activity: walking the dog daily for 30 min, sometimes more challenges: increased appetite for sweets BS Monitoring Most Recent Diabetes Results: Microalb/Creat Ratio 18.9 ug/mg cr (<30) 11/17/23 Cholesterol 170 mg/dL (<200) 11/17/23 HDL Cholesterol 82 mg/dL (>40) 11/17/23 Triglycerides 77 mg/dL (<150) 11/17/23 Creatinine 0.68 mg/dL (0.5-1.4) 11/17/23 Blood Urea Nitrogen 11 mg/dL (9-16) 11/17/23 Sodium 139 mmol/L (135-145) 11/17/23 Potassium 4.2 mmol/L (3.3-5.1) 11/17/23 Chloride 102 mmol/L (96-108) 11/17/23 Carbon Dioxide 27 mmol/L (22-29) 11/17/23 Calcium 9.9 mg/dL (8.4-10.2) 11/17/23 AST 20 U/L (5-31) 11/17/23 ALT 26 U/L (0-31) 11/17/23 Total Protein 7.7 g/dL (6.5-8.0) 11/17/23 Albumin 4.5 g/dL (3.5-5.0) 11/17/23 [facility] Medical History (Updated 02/09/24 @ 09:[address], LDN) Carpal tunnel syndrome of right wrist RUQ abdominal pain Menopause Menopause Cervical disc disease Alcohol abuse GERD (gastroesophageal reflux disease) Obesity (BMI 30-39.9) Hypercholesterolemia Vitamin D deficiency History of renal calculi Hypertension Type 2 diabetes mellitus with hyperglycemia Benign head tremor Fatty liver Depressed Obesity Diabetes Dystonia Surgical History Hx of colonoscopy S/P Botox injection History of carpal tunnel release History of extraction of renal calculus Family History Father Coronary artery disease Mother Emphysema lung Uterine cancer Paternal Uncle Myocardial infarction Paternal Aunt Breast cancer Myocardial infarction Brother CVA (cerebral vascular accident) Social History Housing: Apartment Alcohol intake: former Patient Tobacco Use Status: Never used Tobacco e-Cigarette/Vaping Use: Never Used Second Hand Smoke Exposure: No Advance Directives Date on File: 06/04/20 service: No Current occupational status: disabled Current occupation: rt hand Cognitive needs: No Hearing needs: No Vision needs: Yes Assessment & Plan Assessment & Plan (1) Type 2 diabetes mellitus with hyperglycemia: Comment: A1c at 7.6% on 03/09/23 Code(s): E11.65 - Type 2 diabetes mellitus with hyperglycemia Category: Medical Qualifiers: Diabetes mellitus weatherization director insulin use: without halfway use Qualified Code(s): E11.65 - Type 2 diabetes mellitus with hyperglycemia Plan: Educate Pt on reduction of sugars and uncontrolled dm related complications? ? Used wt?: ? 76 ? ? ? kg (74 kg on 04/14/23), 77 kg (10/2023), 78 kg (01/2024) Est kcal as per MSJ: 1639 (40% carb, 30% fat/prot) Est fluid needs: 1900 ml/d (25 ml/kg bw) Rec fiber:? increase to 8-10 g per day and gradually increase to 25 g/d? or? as tolerated? Rec Na: < ? 2000 mg /d Educate patient on:? (R= Reviewed,? V = verbalizes understanding ? N/R= Needs review? ? N/A= not applicable) * Food sources of carbohydrates and serving adequate serving sizes :??R * Difference between complex carbohydrates and simple carbohydrates, role of fiber:??R * Differences between fats (MUFA/PUFA/saturated fats, trans fats) and food sources of various fats:??? R * Food sources of sodium and salt and? healthy modifications for heart health and kidney health: R, V * Vitamins and minerals:? R * How to interpret food labels:? R, V * Healthy Plate method concept:??R, V? * Physical activity: benefits and precaution:? R, V * review BG goal as per ADA (80-130 in the fasting state and 80-180 , 2 hours after a meal) , importance of monitoring bg * Reduction for weight loss and bg improvement: R * DM support group at [facility] on March 09, from -: 30 - REFERRED Patient Instructions: Reduce on sugars and total carbs to less than 30 g at bedtime Resume monitoring blood sugar for self assessment, monitor as prescribed by your doctor Continue physical activity Coding Level of Care Code Nutr Indiv Subseq ([id number]) Diagnoses Type 2 diabetes mellitus with hyperglycemia, without long-term current use of insulin E11.65 Diabetes mellitus halfway insulin use: without weatherization director use Time Spent (min) 30
== END 2024-02-08 14:39 | disposition home or self-care (01) ==
PROVIDERS: PCP Internal Medicine; Visit Provider Dietitian, Registered
DX: E11.65 Type 2 diabetes mellitus with hyperglycemia (principal)

== ENCOUNTER → 2024-02-08 14:02 | Outpatient (BNVA) | payer OTHER, SELFPAY | PROVIDERS: PCP Internal Medicine; Visit Provider Dietitian, Registered | DX: E11.65 Type 2 diabetes mellitus with hyperglycemia (principal) | CPT/HCPCS: 97803 ==

== ENCOUNTER 2024-05-10 13:49 | Outpatient (AMB) | payer OTHER, SELFPAY ==
--- NOTE | 2024-05-10 14:12 | A.OFFVIS_ITS ---
VS Expanded 05/10/24 14:14 Height 5 ft 1 in Weight 166 lb 14.239 oz BMI 31.5 Intake Visit Reasons: T2DM/LVM Allergies adhesive tape Allergy (Intermediate, Verified 11/19/23 12:31) Rash Nutrition Presentation Details: Pt presents for MNT f/u for T2DM modifications: increasing physical activity - has a dog and is walking the dog 2 times/day 20 -30 min challenges: portions/inc appetite in the evening monitoring BG: occasional in the fasting state , reports ranging from 150-210 mg/dl BS Monitoring Most Recent Diabetes Results: Microalb/Creat Ratio 18.9 ug/mg cr (<30) 11/17/23 Cholesterol 170 mg/dL (<200) 11/17/23 HDL Cholesterol 82 mg/dL (>40) 11/17/23 Triglycerides 77 mg/dL (<150) 11/17/23 Creatinine 0.68 mg/dL (0.5-1.4) 11/17/23 Blood Urea Nitrogen 11 mg/dL (9-16) 11/17/23 Sodium 139 mmol/L (135-145) 11/17/23 Potassium 4.2 mmol/L (3.3-5.1) 11/17/23 Chloride 102 mmol/L (96-108) 11/17/23 Carbon Dioxide 27 mmol/L (22-29) 11/17/23 Calcium 9.9 mg/dL (8.4-10.2) 11/17/23 AST 20 U/L (5-31) 11/17/23 ALT 26 U/L (0-31) 11/17/23 Total Protein 7.7 g/dL (6.5-8.0) 11/17/23 Albumin 4.5 g/dL (3.5-5.0) 11/17/23 [facility] Medical History (Updated 05/10/24 @ 14:28 by Rosa Maria Stevens, RD, LDN) Carpal tunnel syndrome of right wrist RUQ abdominal pain Menopause Menopause Cervical disc disease Alcohol abuse GERD (gastroesophageal reflux disease) Obesity (BMI 30-39.9) Hypercholesterolemia Vitamin D deficiency History of renal calculi Hypertension Type 2 diabetes mellitus with hyperglycemia Benign head tremor Fatty liver Depressed Obesity Diabetes Dystonia Surgical History Hx of colonoscopy S/P Botox injection History of carpal tunnel release History of extraction of renal calculus Family History Father Coronary artery disease Mother Emphysema lung Uterine cancer Paternal Uncle Myocardial infarction Paternal Aunt Breast cancer Myocardial infarction Brother CVA (cerebral vascular accident) Social History Housing: Apartment Alcohol intake: former Patient Tobacco Use Status: Never used Tobacco e-Cigarette/Vaping Use: Never Used Second Hand Smoke Exposure: No Advance Directives Date on File: 06/04/20 service: No Current occupational status: disabled Current occupation: rt hand Cognitive needs: No Hearing needs: No Vision needs: Yes Assessment & Plan Assessment & Plan (1) Type 2 diabetes mellitus with hyperglycemia: Code(s): E11.65 - Type 2 diabetes mellitus with hyperglycemia Category: Medical Qualifiers: Diabetes mellitus detention insulin use: without detention use Qualified Code(s): E11.65 - Type 2 diabetes mellitus with hyperglycemia Plan: Will review seriousness of glucose control for heart health prevention via diet modifications ? Used wt?: ? 76 ? ? ? kg (74 kg on 04/14/23), 77 kg (10/2023), 78 kg (01/2024), 76 kg (05/24) Est kcal as per MSJ: 1639 (40% carb, 30% fat/prot) Est fluid needs: 1900 ml/d (25 ml/kg bw) Rec fiber:? increase to 8-10 g per day and gradually increase to 25 g/d? or? as tolerated? Rec Na: < ? 2000 mg /d Educate patient on:? (R= Reviewed,? V = verbalizes understanding ? N/R= Needs review? ? N/A= not applicable) * Food sources of carbohydrates and serving adequate serving sizes :??R * Difference between complex carbohydrates and simple carbohydrates, role of fiber:??R * Differences between fats (MUFA/PUFA/saturated fats, trans fats) and food sources of various fats:??? R * Food sources of sodium and salt and? healthy modifications for heart health and kidney health: R, V * Vitamins and minerals:? R * How to interpret food labels:? R, V * Healthy Plate method concept:??R, V? * Physical activity: benefits and precaution:? R, V * review BG goal as per ADA (80-130 in the fasting state and 80-180 , 2 hours after a meal) , importance of monitoring bg, importance of glucose control for heart health * Reduction fof sugars/total carb for bg improvement and prevention of cardiovascular disease: R * DM support group at [facility] on 05/12, 05/17, 05/24 from : 30 - REFERRED Patient Instructions: Continue with physical activity as established Keep hydrated Reduce total carb as bedtime snack (20-30 g carb) and combine with 1-2 serving of protein example : yogurt , fruit and peanut butter, glucerna shake Monitor blood sugar 2 hours after last meal of the day for self assessment , discuss blood sugar level with your doctor Coding Level of Care Code Nutr Indiv Subseq ([id number]) Diagnoses Type 2 diabetes mellitus with hyperglycemia, without long-term current use of insulin E11.65 Diabetes mellitus hydrographical technical officer insulin use: without hydrographical technical officer use Time Spent (min) 30
[2024-05-10 14:14] VITALS: BMI 31.5
== END 2024-05-10 14:35 | disposition home or self-care (01) ==
PROVIDERS: PCP Internal Medicine; Visit Provider Dietitian, Registered
DX: E11.65 Type 2 diabetes mellitus with hyperglycemia (principal)

== ENCOUNTER → 2024-05-10 13:49 | Outpatient (BNVA) | payer OTHER, SELFPAY | PROVIDERS: PCP Internal Medicine; Visit Provider Dietitian, Registered | DX: E11.65 Type 2 diabetes mellitus with hyperglycemia (principal); Z71.3 Dietary counseling and surveillance | CPT/HCPCS: 97803 ==

== ENCOUNTER 2024-07-05 14:26 | Outpatient (AMB) | payer OTHER, SELFPAY ==
[2024-07-05 14:44] VITALS: BP 132/68; PULSE 82; O2SAT 98; BMI 31.7
--- NOTE | 2024-07-05 14:44 | A.OFFPC_ITS ---
Vital Signs 07/05/24 14:44 Height 5 ft 1 in Weight 168 lb BMI 31.7 BP 132/68 Blood Pressure Location Lt brachial Position Sitting Pulse 82 Pulse Source Pulse Oximeter Pulse Oximetry (%) 98 Oxygen Delivery Method Room Air Intake Visit Reasons: Follow Up Allergies adhesive tape Allergy (Intermediate, Verified 07/05/24 14:45) Rash Medication List - Last Reconciled 07/05/24 by Mao Sánchez MD baclofen 10 mg PO BID [blood glucose machine As directed] blood pressure monitor (Blood Pressure Kit) As directed blood sugar diagnostic (FreeStyle Lite Strips) 1 strip miscellaneous BID blood-glucose meter (FreeStyle Lite Meter kit) As directed cholecalciferol (vitamin D3) 25 mcg PO DAILY empagliflozin 25 mg PO DAILY 30 days gabapentin 300 mg PO TID glipizide 5 mg PO DAILY [glucometer strips As directed] [lancets As directed] lancets (FreeStyle Lancets) As directed check BS BID metformin 1,000 mg PO BID 90 days multivitamin 1 tab PO DAILY propranolol 10 mg PO BID simvastatin 5 mg PO BEDTIME tramadol 50 mg PO BID PRN trihexyphenidyl take 2 tabs in am 1 noon and 2 at night orally ; give with food (meal/snack) Tobacco use date assessed: 11/19/23 Dental Screening Dental Screen Date: 11/19/23 HPI Follow Up HPI Details 54-year-old obese female with a history of diabetes mellitus hypertension hypercholesterolemia GERD with dystonia. Patient last seen in October 2023. Patient has also tubular adenoma of the colon as was reminded about colonoscopy. October 2023 last blood work PFSH Medical History (Updated 07/05/24 @ 15:01 by Mao Sánchez MD) Carpal tunnel syndrome of right wrist RUQ abdominal pain Menopause Menopause Cervical disc disease Alcohol abuse GERD (gastroesophageal reflux disease) Obesity (BMI 30-39.9) Hypercholesterolemia Vitamin D deficiency History of renal calculi Hypertension Type 2 diabetes mellitus with hyperglycemia Benign head tremor Fatty liver Depressed Obesity Diabetes Dystonia Surgical History Hx of colonoscopy S/P Botox injection History of carpal tunnel release History of extraction of renal calculus Family History Father Coronary artery disease Mother Emphysema lung Uterine cancer Paternal Uncle Myocardial infarction Paternal Aunt Breast cancer Myocardial infarction Brother CVA (cerebral vascular accident) Social History Housing: Apartment Alcohol intake: former Patient Tobacco Use Status: Never used Tobacco Tobacco use type: Cigarette e-Cigarette/Vaping Use: Never Used Second Hand Smoke Exposure: No Advance Directives Date on File: 06/04/20 service: No Current occupational status: disabled Current occupation: rt hand Cognitive needs: No Hearing needs: No Vision needs: Yes Questionnaire PHQ-9 Over the last 2 weeks, how often have you been bothered by any of the following problems? 1. Little interest or pleasure in doing things: not at all 2. Feeling down, depressed, or hopeless: not at all 3. Trouble falling or staying asleep, or sleeping too much: not at all 4. Feeling tired or having little energy: not at all 5. Poor appetite or overeating: not at all 6. Feeling bad about yourself - or that you are a failure or have let yourself or your family down: not at all 7. Trouble concentrating on things, such as reading the newspaper or watching television: not at all 8. Moving or speaking so slowly that other people could have noticed. Or the opposite - being so fidgety or restless that you have been moving around a lot more than usual: not at all 9. Thoughts that you would be better off or of hurting yourself in some way: not at all Total score: 0 Depression Screening Interpretation: Negative Depression Screening Done: Yes Source: Developed by Drs. Pino Mcneill, Joann Ferraro, Law Osborne and colleagues, with an educational jessee from [employer]. Thrive Questionnaire Date Thrive assessed: 09/17/23 AUDIT C Alcohol Use Questionnaire (AUDIT-C) 3. How often do you have six or more drinks on one occasion?: Never Total Score: 0 ADRIAN-7 AMB Questionnaire ADRIAN-7 Date ADRIAN - 7 assessed: 09/17/23 Source: Developed by Drs. Pino Mcneill, Law Shook and colleagues, with an educational jessee from [employer]. Physical exam (Primary Care) Vital Signs: Last Vital Signs Pulse 82 07/05/24 14:44 BP 132/68 07/05/24 14:44 Pulse Ox 98 07/05/24 14:44 Oxygen Delivery Method Room Air 07/05/24 14:44 BMI result Body Mass Index 31.7 Tobacco/Smoking Status: Tobacco use Status Tobacco use date assessed 11/19/23 07/05/24 14:45 Patient Tobacco Use Status Never used Tobacco 07/05/24 14:45 Tobacco use type Cigarette 07/05/24 14:45 e-Cigarette/Vaping Use Never Used 07/05/24 14:45 PHQ-9: PHQ-9 Score PHQ-9: Total score 0 07/05/24 15:22 Depression Screening Interpretation: Negative Thrive Assessment: Date of Thrive Assessment Date Thrive assessed 09/17/23 07/05/24 14:45 Const General: alert; No acute distress Eyes Conjunctivae: conjunctivae normal Resp Auscultation: clear to auscultation bilaterally Cardio Rate: regular rate Rhythm: regular rhythm GI Inspection: Yes normal to inspection Extrem General: Yes normal to inspection and No edema Office Procedures Flu Questionnaire Does the patient have a severe egg allergy?: No Does the patient have severe life threatening allergies?: No Does the patient have a fever or illness today?: No Has the patient ever had Guillain-[place] Syndrome?: No Has the patient ever had any past reaction to a flu shot?: No Results AMB Hemoglobin A1c AMB Hemoglobin A1c 9.3 % Last Edit by Dunia Fontanez CMA on 07/05/24 15 :19 Immunizations Fluarix Triv [id number] (PF) 45 mcg (15 mcg x 3)/0.5 mL IM syringe Performing Provider: Mao Sánchez MD Per[facility] Administered by: Dunia Fontanez CMA on 07/05/24 15:22 Dose Route Admin Location Dispensed Lot Number Expiration Date [facility] Information Strategist 0.5 mL IM Left Deltoid 0.5 mL [id number] 02/27/25 [id number] [employer] VIS Given Date VIS Provided VIS Publication Date 07/05/24 Single Vaccine 21 Eligibility Eligibility Date Funding Source Not [facility] Eligible 07/05/24 Private Results Reviewed Results Reviewed: Laboratory Last Values Hgb A1c (Clinic) 9.3 % (4.0-6.0) H 07/05/24 14:45 Coding Level of Care Code Est Pt Level 4 (87645) Complex EM visit Add On G2211 Diagnoses Obesity (BMI 30-39.9) E66.9 Tubulovillous adenoma of colon D12.6 Type 2 diabetes mellitus with hyperglycemia, without long-term current use of insulin E11.65 Diabetes mellitus superintendent container terminal insulin use: without long-term use Essential hypertension I10 Hypertension type: essential hypertension Hypercholesterolemia E78.00 Gastroesophageal reflux disease without esophagitis K21.9 Esophagitis presence: without esophagitis Dystonia G24.9 Assessment & Plan Assessment & Plan (1) Obesity (BMI 30-39.9): Code(s): E66.9 - Obesity, unspecified Category: Medical Plan: Diet and exercise (2) Tubulovillous adenoma of colon: Comment: 08/19 3.5 - 4 cms TVA with focal HGD in the sigmoid colon Code(s): D12.6 - Benign neoplasm of colon, unspecified Category: Medical Plan: Patient is reminded about colonoscopy again. (3) Type 2 diabetes mellitus with hyperglycemia: Comment: [facility] Code(s): E11.65 - Type 2 diabetes mellitus with hyperglycemia Category: Medical Qualifiers: Diabetes mellitus superintendent container terminal insulin use: without long-term use Qualified Code(s): E11.65 - Type 2 diabetes mellitus with hyperglycemia Plan: Decrease the amount of carbohydrate intake, pasta, bread, rice and potatoes are all sugar and that is aside from all the sweet stuff, remember that fruits are good but they are Sweet also. Hemoglobin A1c goal of less than 6.5. Patient is on Jardiance 25 mg once a day glipizide 5 mg once a day metformin a 1000 mg twice a day (4) Hypertension: Code(s): I10 - Essential (primary) hypertension Category: Medical Qualifiers: Hypertension type: essential hypertension Qualified Code(s): I10 - Essential (primary) hypertension Plan: Continue with blood pressure medication. Decrease salt intake and exercise on propranolol 10 mg twice a day (5) Hypercholesterolemia: Code(s): E78.00 - Pure hypercholesterolemia, unspecified Category: Medical Plan: Avoid fried foods, chicken skin, eggs, butter margarine, pastries and meat. Be it pork or beef they have a lot of cholesterol on simvastatin 5 mg at bedtime (6) GERD (gastroesophageal reflux disease): Code(s): K21.9 - Gastro-esophageal reflux disease without esophagitis Category: Medical Qualifiers: Esophagitis presence: without esophagitis Qualified Code(s): K21.9 - Gastro-esophageal reflux disease without esophagitis Plan: Avoid the foods that causes that usually spicy foods, tomato products, juices, coffee, soda and foods that your sensitive to. After eating do not lie down, allow 3-4 hours before in lie down. And keep the head of bed above 30 degrees to avoid the acid from going up. (7) Dystonia: Comment: Cervical, Sees Dr Siegel in [place] Code(s): G24.9 - Dystonia, unspecified Category: Medical Plan: Continue to follow-up with Neurology in [place] Orders: Orders AMB Hemoglobin A1c Today Z13.9 - Encounter for screening, unspecified Comprehensive Met. Panel 4 Months E11.65 - Type 2 diabetes mellitus with hyperglycemia Lipid Panel 4 Months E11.65 - Type 2 diabetes mellitus with hyperglycemia, E78.00 - Pure hypercholesterolemia, unspecified Hemoglobin A1c 4 Months E11.65 - Type 2 diabetes mellitus with hyperglycemia Creatinine Urine 4 Months E11.65 - Type 2 diabetes mellitus with hyperglycemia Complete Blood Count Auto Diff 4 Months E11.65 - Type 2 diabetes mellitus with hyperglycemia Thyroid Stimulating Hormone 4 Months E11.65 - Type 2 diabetes mellitus with hyperglycemia Free T4 (Free Thyroxine) 4 Months E11.65 - Type 2 diabetes mellitus with hyperglycemia Vitamin B12 and Folate 4 Months E11.65 - Type 2 diabetes mellitus with hyperglycemia Vitamin D 25-OH Total 4 Months E11.65 - Type 2 diabetes mellitus with hyperglycemia Microalbumin, Random (w Creat) 4 Months E11.65 - Type 2 diabetes mellitus with hyperglycemia Influenza [id number] Immunization Today Z23 - Encounter for immunization Referrals Gastroenterology Referral D12.6 - Benign neoplasm of colon, unspecified Medications: New tirzepatide (Mounjaro) for 4 weeks 2.5 mg (0.5 mL) subcut QWEEK 2 mL 0RF E11.65 - Type 2 diabetes mellitus with hyperglycemia Refilled propranolol 10 mg PO BID 180 tabs 3RF D12.6 - Benign neoplasm of colon, unspecified
== END 2024-07-05 15:24 | disposition home or self-care (01) ==
LOC: HO.HMCH 14:27
PROVIDERS: PCP Internal Medicine; Visit Provider Internal Medicine
DX: E11.65 Type 2 diabetes mellitus with hyperglycemia (principal); E66.9 Obesity, unspecified; Z68.31 Body mass index [BMI] 31.0-31.9, adult; D12.6 Benign neoplasm of colon, unspecified; I10 Essential (primary) hypertension; E78.00 Pure hypercholesterolemia, unspecified; K21.9 Gastro-esophageal reflux disease without esophagitis; G24.9 Dystonia, unspecified

== ENCOUNTER → 2024-07-05 14:26 | Outpatient (BNVA) | payer OTHER, SELFPAY | PROVIDERS: PCP Internal Medicine; Visit Provider Internal Medicine | DX: Z23 Encounter for immunization (principal); E11.65 Type 2 diabetes mellitus with hyperglycemia; I10 Essential (primary) hypertension; E78.00 Pure hypercholesterolemia, unspecified; K21.9 Gastro-esophageal reflux disease without esophagitis; E66.9 Obesity, unspecified; Z68.31 Body mass index [BMI] 31.0-31.9, adult; G24.9 Dystonia, unspecified; Z71.3 Dietary counseling and surveillance | CPT/HCPCS: 83036; 90471; 90656; 96127; 99212 ==

== ENCOUNTER 2024-07-11 13:56 | Outpatient (AMB) | payer OTHER, SELFPAY ==
[2024-07-11 14:05] VITALS: BMI 32.2
--- NOTE | 2024-07-11 14:05 | A.OFFVIS_ITS ---
VS Expanded 07/11/24 14:05 Height 5 ft 1 in Weight 170 lb 6.677 oz BMI 32.2 Intake Visit Reasons: T2DM Allergies adhesive tape Allergy (Intermediate, Verified 07/05/24 14:45) Rash Nutrition Presentation Details: Pt presents for MNT f/u for T2DM Pt admits to increase intake of sugary foods most recent A1c >11% Pt verbalizes wanting to take meal planning more seriously BS Monitoring Most Recent Diabetes Results: 2 Microalb/Creat Ratio 18.9 ug/mg cr (<30) 11/17/23 Cholesterol 170 mg/dL (<200) 11/17/23 HDL Cholesterol 82 mg/dL (>40) 11/17/23 Triglycerides 77 mg/dL (<150) 11/17/23 Creatinine 0.68 mg/dL (0.5-1.4) 11/17/23 Blood Urea Nitrogen 11 mg/dL (9-16) 11/17/23 Sodium 139 mmol/L (135-145) 11/17/23 Potassium 4.2 mmol/L (3.3-5.1) 11/17/23 Chloride 102 mmol/L (96-108) 11/17/23 Carbon Dioxide 27 mmol/L (22-29) 11/17/23 Calcium 9.9 mg/dL (8.4-10.2) 11/17/23 AST 20 U/L (5-31) 11/17/23 ALT 26 U/L (0-31) 11/17/23 Total Protein 7.7 g/dL (6.5-8.0) 11/17/23 Albumin 4.5 g/dL (3.5-5.0) 11/17/23 [facility] Medical History (Updated 07/05/24 @ 15:01 by Mao Sánchez MD) Carpal tunnel syndrome of right wrist RUQ abdominal pain Menopause Menopause Cervical disc disease Alcohol abuse GERD (gastroesophageal reflux disease) Obesity (BMI 30-39.9) Hypercholesterolemia Vitamin D deficiency History of renal calculi Hypertension Type 2 diabetes mellitus with hyperglycemia Benign head tremor Fatty liver Depressed Obesity Diabetes Dystonia Surgical History Hx of colonoscopy S/P Botox injection History of carpal tunnel release History of extraction of renal calculus Family History Father Coronary artery disease Mother Emphysema lung Uterine cancer Paternal Uncle Myocardial infarction Paternal Aunt Breast cancer Myocardial infarction Brother CVA (cerebral vascular accident) Social History Housing: Apartment Alcohol intake: former Patient Tobacco Use Status: Never used Tobacco Tobacco use type: Cigarette e-Cigarette/Vaping Use: Never Used Second Hand Smoke Exposure: No Advance Directives Date on File: 06/04/20 service: No Current occupational status: disabled Current occupation: rt hand Cognitive needs: No Hearing needs: No Vision needs: Yes Assessment & Plan Assessment & Plan (1) Type 2 diabetes mellitus with hyperglycemia: Comment: [facility] Code(s): E11.65 - Type 2 diabetes mellitus with hyperglycemia Category: Medical Qualifiers: Diabetes mellitus termite control technician insulin use: without group home use Qualified Code(s): E11.65 - Type 2 diabetes mellitus with hyperglycemia Plan: Will review seriousness of glucose control for heart health prevention via diet modifications ? Used wt?: ? 76 ? ? ? kg (74 kg on 04/14/23), 77 kg (10/2023), 78 kg (01/2024), 76 kg (05/24), 77kg (07/24) Est kcal as per MSJ: 1639 (40% carb, 30% fat/prot) Est fluid needs: 1900 ml/d (25 ml/kg bw) Rec fiber:? increase to 8-10 g per day and gradually increase to 25 g/d? or? as tolerated? Rec Na: < ? 2000 mg /d Educate patient on:? (R= Reviewed,? V = verbalizes understanding ? N/R= Needs review? ? N/A= not applicable) * Food sources of carbohydrates and serving adequate serving sizes :??R * Difference between complex carbohydrates and simple carbohydrates, role of fiber:??R * Differences between fats (MUFA/PUFA/saturated fats, trans fats) and food sources of various fats:??? R * Food sources of sodium and salt and? healthy modifications for heart health and kidney health: R, V * Vitamins and minerals:? R * How to interpret food labels:? R, V * Healthy Plate method concept:??R, V? * Physical activity: benefits and precaution:? R, V * review BG goal as per ADA (80-130 in the fasting state and 80-180 , 2 hours after a meal) , importance of monitoring bg, importance of glucose control for heart health * Reduction fof sugars/total carb for bg improvement and prevention of cardiovascular disease: R * DM support group at [facility] on 05/12, 05/17, 05/24 from -: 30 - REFERRED Patient Instructions: Resume reducing on sugars/carbohydrates (read food labels) Reduce total carbs as snack to less than 15 grams, limit 2 snacks per day followhealthy plate method at meals (2 meals/day) and have a meal replacement once a day Coding Level of Care Code Nutr Indiv Subseq (75659) Diagnoses Type 2 diabetes mellitus with hyperglycemia, without long-term current use of insulin E11.65 Diabetes mellitus group home insulin use: without termite control technician use Time Spent (min) 30
== END 2024-07-11 14:33 | disposition home or self-care (01) ==
PROVIDERS: PCP Internal Medicine; Visit Provider Dietitian, Registered
DX: E11.65 Type 2 diabetes mellitus with hyperglycemia (principal)

== ENCOUNTER → 2024-07-11 13:56 | Outpatient (BNVA) | payer OTHER, SELFPAY | PROVIDERS: PCP Internal Medicine; Visit Provider Dietitian, Registered | DX: E11.65 Type 2 diabetes mellitus with hyperglycemia (principal); Z71.3 Dietary counseling and surveillance; E11.9 Type 2 diabetes mellitus without complications | CPT/HCPCS: 97803 ==

== ENCOUNTER 2024-08-15 13:50 | Outpatient (AMB) | payer OTHER, SELFPAY ==
--- NOTE | 2024-08-15 13:55 | MHC.AMNUTRGE ---
VS Expanded 08/15/24 13:56 Height 5 ft 1 in Weight 169 lb 8.568 oz BMI 32.0 Intake Visit Reasons: T2DM/Left vm Allergies adhesive tape Allergy (Intermediate, Verified 07/05/24 14:45) Rash Nutrition Presentation Details: Pt presents for MNT f/u for t2DM Pt did not bring glucometer to this appt, reports fbg ranges from 130-160s and bg are >180 after meals int he evening. Challenges: reducing portion of total carbs reading food labels- no measuring portions - no BS Monitoring Most Recent Diabetes Results: Microalb/Creat Ratio 18.9 ug/mg cr (<30) 11/17/23 Cholesterol 170 mg/dL (<200) 11/17/23 HDL Cholesterol 82 mg/dL (>40) 11/17/23 Triglycerides 77 mg/dL (<150) 11/17/23 Creatinine 0.68 mg/dL (0.5-1.4) 11/17/23 Blood Urea Nitrogen 11 mg/dL (9-16) 11/17/23 Sodium 139 mmol/L (135-145) 11/17/23 Potassium 4.2 mmol/L (3.3-5.1) 11/17/23 Chloride 102 mmol/L (96-108) 11/17/23 Carbon Dioxide 27 mmol/L (22-29) 11/17/23 Calcium 9.9 mg/dL (8.4-10.2) 11/17/23 AST 20 U/L (5-31) 11/17/23 ALT 26 U/L (0-31) 11/17/23 Total Protein 7.7 g/dL (6.5-8.0) 11/17/23 Albumin 4.5 g/dL (3.5-5.0) 11/17/23 [facility] Medical History (Updated 07/05/24 @ 15:01 by Mao Sánchez MD) Carpal tunnel syndrome of right wrist RUQ abdominal pain Menopause Menopause Cervical disc disease Alcohol abuse GERD (gastroesophageal reflux disease) Obesity (BMI 30-39.9) Hypercholesterolemia Vitamin D deficiency History of renal calculi Hypertension Type 2 diabetes mellitus with hyperglycemia Benign head tremor Fatty liver Depressed Obesity Diabetes Dystonia Surgical History Hx of colonoscopy S/P Botox injection History of carpal tunnel release History of extraction of renal calculus Family History Father Coronary artery disease Mother Emphysema lung Uterine cancer Paternal Uncle Myocardial infarction Paternal Aunt Breast cancer Myocardial infarction Brother CVA (cerebral vascular accident) Social History Housing: Apartment Alcohol intake: former Patient Tobacco Use Status: Never used Tobacco Tobacco use type: Cigarette e-Cigarette/Vaping Use: Never Used Second Hand Smoke Exposure: No Advance Directives Date on File: 06/04/20 service: No Current occupational status: disabled Current occupation: rt hand Cognitive needs: No Hearing needs: No Vision needs: Yes Assessment & Plan Assessment & Plan (1) Type 2 diabetes mellitus with hyperglycemia: Comment: [facility] Code(s): E11.65 - Type 2 diabetes mellitus with hyperglycemia Category: Medical Qualifiers: Diabetes mellitus local company intermodal truck driver insulin use: without local company intermodal truck driver use Qualified Code(s): E11.65 - Type 2 diabetes mellitus with hyperglycemia Plan: Used wt?: ? 76 ? ? ? kg 12/24 Est kcal as per MSJ: 1639 (40% carb, 30% fat/prot) Est fluid needs: 1900 ml/d (25 ml/kg bw) Rec fiber:? increase to 8-10 g per day and gradually increase to 25 g/d? or? as tolerated? Rec Na: < ? 2000 mg /d Educate patient on:? (R= Reviewed,? V = verbalizes understanding ? N/R= Needs review? ? N/A= not applicable) Food sources of carbohydrates and serving adequate serving sizes :??R Difference between complex carbohydrates and simple carbohydrates, role of fiber:??R Differences between fats (MUFA/PUFA/saturated fats, trans fats) and food sources of various fats:??? R Food sources of sodium and salt and? healthy modifications for heart health and kidney health: R, V Vitamins and minerals:? R How to interpret food labels:? R, V Healthy Plate method concept:??R, V? Physical activity: benefits and precaution:? R, V review BG goal as per ADA (80-130 in the fasting state and 80-180 , 2 hours after a meal) , importance of monitoring bg, importance of glucose control for heart health Reduction fof sugars/total carb for bg improvement and prevention of cardiovascular disease: R Patient Instructions: Read labels , measure food portions, reduce total carb as snack at night to 20 g or less- see list of options engage in physical activity walking 30 minutes daily Coding Level of Care Code Nutr Indiv Subseq (58171) Diagnoses Type 2 diabetes mellitus with hyperglycemia, without long-term current use of insulin E11.65 Diabetes mellitus local company intermodal truck driver insulin use: without nursing home use Time Spent (min) 30
[2024-08-15 13:56] VITALS: BMI 32.0
== END 2024-08-15 14:27 | disposition home or self-care (01) ==
PROVIDERS: PCP Internal Medicine; Visit Provider Dietitian, Registered
DX: E11.65 Type 2 diabetes mellitus with hyperglycemia (principal)

== ENCOUNTER → 2024-08-15 13:50 | Outpatient (BNVA) | payer OTHER, SELFPAY | PROVIDERS: PCP Internal Medicine; Visit Provider Dietitian, Registered | DX: E11.65 Type 2 diabetes mellitus with hyperglycemia (principal); Z71.3 Dietary counseling and surveillance | CPT/HCPCS: 97803 ==

== ENCOUNTER 2024-09-15 15:52 | Outpatient (AMB) | payer OTHER, SELFPAY ==
--- NOTE | 2024-09-15 15:58 | MHC.PC.OV ---
Vital Signs 09/15/24 16:00 Height 5 ft 1 in Weight 167 lb 2 oz BMI 31.6 BP 120/84 Blood Pressure Location Lt brachial Position Sitting Pulse 85 Pulse Source Pulse Oximeter Temp 96.9 F Temp Source Skin Pulse Oximetry (%) 98 Oxygen Delivery Method Room Air Intake Visit Reasons: DM Intake Note: Patient is here to follow up on DM. 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 Radio Operator Ground: Not Required per policy Accompanied by: Self / Same As Patient Allergies adhesive tape Allergy (Intermediate, Verified 09/15/24 16:00) Rash Tobacco use date assessed: 09/15/24 Dental Screening Dental Screen Date: 09/15/24 Did you have a dental visit in the last 12 months?: Yes Did you have a dental problem in the last 6 months where you did not have access to dental care?: No Was dental information given to patient?: Patient has dentist HPI DM HPI Details 54-year-old obese female noted to lb weight loss having diabetes mellitus hypertension hypercholesterolemia GERD patient does have dystonia coming in for follow-up. Last seen in July 2024. Patient's last mammogram was 09/19/2023, colonoscopy last done in 04/19/2021 in due for another.. Patient has been seeing the jelly filter tender. seeing [facility] in [place] and wants to have the levodopa carbidopa but contemplating on [place] instead. botox injection The patient is a 54-year-old female presenting with multiple management concerns, predominantly focusing on Type 2 Diabetes Mellitus. The patient's last HbA1c measurement in July was notably elevated at 9.3%. She reports initiating Manjaro (tirzepatide) for glucose control, experiencing no nausea or adverse effects, and perceives injection administration as manageable. The patient received a one-month supply of 2.5 mg dose. A step-up in medication dosage was discussed, indicating sustained monitoring and intervention for glycemic control. The patient also addressed ongoing Cervical Dystonia, experiencing severe neck, shoulder, and head pain variably affecting her daily function, with particularly intense symptoms reported recently. She is delayed in receiving Botox injections due to scheduling constraints, further exacerbating discomfort. Treatment adjustment for dystonia included considering a transition from baclofen to trihexyphenidyl, with clarity needed in administration frequency, from an initial half-tablet dosage adjustment. Her management of chronic neck pain related to dystonia remains interlaced with treatment coordination between two medical facilities, preferring the logistical convenience offered by her regular visits to [place] over [place] due to its relative simplicity and familiarity. She maintains that while physical barriers like traffic are absent, they contribute to overall stress levels. [facility] Medical History (Updated 07/05/24 @ 15:01 by Mao Sánchez MD) Carpal tunnel syndrome of right wrist RUQ abdominal pain Menopause Menopause Cervical disc disease Alcohol abuse GERD (gastroesophageal reflux disease) Obesity (BMI 30-39.9) Hypercholesterolemia Vitamin D deficiency History of renal calculi Hypertension Type 2 diabetes mellitus with hyperglycemia Benign head tremor Fatty liver Depressed Obesity Diabetes Dystonia Surgical History Hx of colonoscopy S/P Botox injection History of carpal tunnel release History of extraction of renal calculus Family History Father Coronary artery disease Mother Emphysema lung Uterine cancer Paternal Uncle Myocardial infarction Paternal Aunt Breast cancer Myocardial infarction Brother CVA (cerebral vascular accident) Social History Housing: Apartment Alcohol intake: former Patient Tobacco Use Status: Never used Tobacco Tobacco use type: Cigarette e-Cigarette/Vaping Use: Never Used Second Hand Smoke Exposure: No Advance Directives Date on File: 06/04/20 service: No Current occupational status: disabled Current occupation: rt hand Cognitive needs: No Hearing needs: No Vision needs: Yes Questionnaire PHQ-9 Over the last 2 weeks, how often have you been bothered by any of the following problems? 1. Little interest or pleasure in doing things: not at all 2. Feeling down, depressed, or hopeless: not at all 3. Trouble falling or staying asleep, or sleeping too much: not at all 4. Feeling tired or having little energy: not at all 5. Poor appetite or overeating: not at all 6. Feeling bad about yourself - or that you are a failure or have let yourself or your family down: not at all 7. Trouble concentrating on things, such as reading the newspaper or watching television: not at all 8. Moving or speaking so slowly that other people could have noticed. Or the opposite - being so fidgety or restless that you have been moving around a lot more than usual: not at all 9. Thoughts that you would be better off or of hurting yourself in some way: not at all Total score: 0 Depression Screening Interpretation: Negative Depression Screening Done: Yes Source: Developed by Drs. Pino Mcneill, Joann Ferraro, Law Osborne and colleagues, with an educational jessee from [employer]. Thrive Questionnaire Date Thrive assessed: 09/15/24 I am a: Patient What is your living situation today?: I have a steady place to live Within the past 12 months, did the food you bought not last and you didn't have the money to get more?: Never true Within the past 12 months, did you worry whether your food would run out before you got money to buy more?: Never true Do you have trouble paying for medicines?: No Do you have trouble getting transportation to medical appointments?: No Do you have trouble paying your heating and electricity bill?: No Do you have trouble taking care of your child, family member or friend?: No Do you have trouble with day-to-day activities such as bathing, preparing meals, shopping, managing finances, etc.?: No Are you currently unemployed and looking for a job?: No Are you interested in more education?: No Please select the resources that you would like help with: None Currently or been in a relationship where the following occur: No concerns reported THRIVE Score: 0 AUDIT C Alcohol Use Questionnaire (AUDIT-C) 1. How often do you have a drink containing alcohol?: Never 3. How often do you have six or more drinks on one occasion?: Never Total Score: 0 ADRIAN-7 AMB Questionnaire ADRIAN-7 Date ADRIAN - 7 assessed: 09/15/24 Feeling nervous, anxious, or on edge: 0 = Not at all Not being able to stop or control worryin = Not at all Worrying too much about different things: 0 = Not at all Trouble relaxin = Not at all Being so restless that it is hard to sit still: 0 = Not at all Becoming easily annoyed or irritable: 0 = Not at all Feeling afraid as if something awful might happen: 0 = Not at all Total ADRIAN-7 score (0-4 normal; 5-9 mild; 10-14 moderate; 15-21 severe): 0 Source: Developed by Drs. Pino Mcneill, Joann Ferraro, Law Osborne and colleagues, with an educational jessee from [employer]. Physical exam (Primary Care) Vital Signs: Last Vital Signs Temp 96.9 F 09/15/24 16:00 Pulse 85 09/15/24 16:00 BP 120/84 09/15/24 16:00 Pulse Ox 98 09/15/24 16:00 Oxygen Delivery Method Room Air 09/15/24 16:00 BMI result Body Mass Index 31.6 Tobacco/Smoking Status: Tobacco use Status Tobacco use date assessed 09/15/24 09/15/24 16:05 Patient Tobacco Use Status Never used Tobacco 09/15/24 16:05 Tobacco use type Cigarette 09/15/24 16:05 e-Cigarette/Vaping Use Never Used 09/15/24 16:05 PHQ-9: PHQ-9 Score PHQ-9: Total score 0 09/15/24 16:05 Depression Screening Interpretation: Negative Thrive Assessment: Date of Thrive Assessment Date Thrive assessed 09/15/24 09/15/24 16:05 Currently or been in a relationship where the following occur: No concerns reported Const General: alert; No acute distress Eyes Conjunctivae: conjunctivae normal Resp Auscultation: clear to auscultation bilaterally Cardio Rate: regular rate Rhythm: regular rhythm GI Inspection: Yes normal to inspection Extrem General: Yes normal to inspection and No edema Coding Level of Care Code Est Pt Level 4 (34235) Complex EM visit Add On G2211 Diagnoses Type 2 diabetes mellitus with hyperglycemia, without long-term current use of insulin E11.65 Diabetes mellitus [facility] insulin use: without buttermilk drier operator use Essential hypertension I10 Hypertension type: essential hypertension Hypercholesterolemia E78.00 Tubulovillous adenoma of colon D12.6 Obesity (BMI 30-39.9) E66.9 Dystonia G24.9 Assessment & Plan Assessment & Plan (1) Type 2 diabetes mellitus with hyperglycemia: Comment: [facility] Code(s): E11.65 - Type 2 diabetes mellitus with hyperglycemia Category: Medical Qualifiers: Diabetes mellitus buttermilk drier operator insulin use: without buttermilk drier operator use Qualified Code(s): E11.65 - Type 2 diabetes mellitus with hyperglycemia Plan: Decrease the amount of carbohydrate intake, pasta, bread, rice and potatoes are all sugar and that is aside from all the sweet stuff, remember that fruits are good but they are Sweet also. Hemoglobin A1c goal of less than 6.5. Patient on Jardiance 25 mg once a day glipizide 5 mg once a day metformin 1000 mg twice a day and Mounjaro at 2.5 mg once a week (2) Hypertension: Code(s): I10 - Essential (primary) hypertension Category: Medical Qualifiers: Hypertension type: essential hypertension Qualified Code(s): I10 - Essential (primary) hypertension Plan: Continue with blood pressure medication. Decrease salt intake and exercise on propranolol 10 mg twice a day. (3) Hypercholesterolemia: Code(s): E78.00 - Pure hypercholesterolemia, unspecified Category: Medical Plan: Avoid fried foods, chicken skin, eggs, butter margarine, pastries and meat. Be it pork or beef they have a lot of cholesterol LDL goal of less than 100 and triglyceride of less than 150 on simvastatin 5 mg at bedtime (4) Tubulovillous adenoma of colon: Comment: 08/19 3.5 - 4 cms TVA with focal HGD in the sigmoid colon Code(s): D12.6 - Benign neoplasm of colon, unspecified Category: Medical Plan: Patient is reminded about colonoscopy and has a scheduled follow-up with Gastroenterology. (5) Obesity (BMI 30-39.9): Code(s): E66.9 - Obesity, unspecified Category: Medical Plan: Diet and exercise (6) Dystonia: Comment: Cervical, Sees Dr Siegel in [place] Code(s): G24.9 - Dystonia, unspecified Category: Medical Plan: Continue to follow-up with Neurology on levodopa carbidopa baclofen. Plan - For Type 2 Diabetes Mellitus: Increase the current dosage of Manjaro as planned after the review of ongoing therapy effectiveness. Continued self-monitoring of blood glucose levels is important, and reinforcing adherence to medication is critical. - For Cervical Dystonia and Related Pain: Proceed with the planned switch in medication from baclofen to trihexyphenidyl, starting with a half-tablet dose three times daily for one week; re-evaluate response and adjust to one tablet. Address the need for Botox injections and explore potential therapy schedule modifications. - For Influenza Vaccination Status: Confirmed receipt of the current season's influenza vaccine. Encourage maintaining preventive measures including vaccination and hygienic practices considering flu season, COVID-19, and RSV concerns. - Overall Medication Review: Ensure refill of all necessary medications and verify all prescriptions are current and correct, addressing any discrepancies in pill quantities, specifically observing baclofen regimen adjustments. - Chronic Pain Management: Encourage continued evaluation of neurological symptoms and their impact on daily activities, supporting chronic pain management with adequate follow-up and re-evaluation for both medication effectiveness and Botox scheduling. Medications: Changed From tirzepatide (Mounjaro) for 4 weeks 2.5 mg (0.5 mL) subcut QWEEK 2 mL 0RF E11.65 - Type 2 diabetes mellitus with hyperglycemia To tirzepatide for 4 weeks 5 mg (0.5 mL) subcut QWEEK 30 days 2.5 mL 2RF E11.65 - Type 2 diabetes mellitus with hyperglycemia From trihexyphenidyl take 2 tabs in am 1 noon and 2 at night orally ; give with food (meal/snack) G24.9 - Dystonia, unspecified To trihexyphenidyl take 2 tabs in am 1 noon and 2 at night orally ; give with food (meal/snack) 30 days 86 tabs 0RF G24.9 - Dystonia, unspecified
[2024-09-15 16:00] VITALS: BP 120/84; PULSE 85; TEMP 36.1; O2SAT 98; BMI 31.6
== END 2024-09-15 16:42 | disposition home or self-care (01) ==
PROVIDERS: PCP Internal Medicine; Visit Provider Internal Medicine
DX: E11.65 Type 2 diabetes mellitus with hyperglycemia (principal); I10 Essential (primary) hypertension; Z68.31 Body mass index [BMI] 31.0-31.9, adult; E66.9 Obesity, unspecified; E78.00 Pure hypercholesterolemia, unspecified; D12.6 Benign neoplasm of colon, unspecified; G24.9 Dystonia, unspecified

== ENCOUNTER → 2024-09-15 15:52 | Outpatient (BNVA) | payer OTHER, SELFPAY | PROVIDERS: PCP Internal Medicine; Visit Provider Internal Medicine | DX: E11.65 Type 2 diabetes mellitus with hyperglycemia (principal); I10 Essential (primary) hypertension; E78.00 Pure hypercholesterolemia, unspecified; D12.6 Benign neoplasm of colon, unspecified; E66.9 Obesity, unspecified; G24.9 Dystonia, unspecified | CPT/HCPCS: 99212 ==

== ENCOUNTER 2024-09-26 13:18 | Outpatient (REF) | payer OTHER, SELFPAY ==
--- OUTSIDE RECORDS SUMMARY | 2024-09-26 18:01 | XMS_ITS | Referral Summary ---
Author Organization [facility] Address [address] [place] [address] Care Team Providers Care Nurseryperson Name Role Phone GonzaloMao Duc Primary Care Provider [phone] Encounters Date Type Department Care Team Description 09/16/2024 Telephone [facility] [address] [place] [address] Dianna Ragsdale MD Prior Authorization (PA for Botox approved) 09/14/2024 1:45 PM EST Office Visit [facility] [address] [place] [address] Jp Macdonald MD Cervical dystonia (Primary Dx) from Last 3 Months Allergies No known active allergies Medications baclofen (LIORESAL) 10 mg tablet Take 10 mg by mouth 2 times a day. Active trihexyphenidyL (ARTANE) 2 mg tablet Take 4 mg by mouth 2 times a day with meals. Active Vitamin D3 25 mcg (1,000 unit) capsule Take 1 capsule by mouth once a day. Active glipiZIDE XL (GLUCOTROL XL) 5 mg tablet Take 5 mg by mouth once a day. Active metFORMIN (GLUCOPHAGE) 1,000 mg tablet Take 1,000 mg by mouth 2 times a day with meals. Active gabapentin (NEURONTIN) 300 mg capsule Take 300 mg by mouth 2 times a day. Active propranoloL (INDERAL) 10 mg tablet Take 10 mg by mouth 2 times a day. Active carbidopa-levod opa (SINEMET) 25-100 mg per tablet Take 1 tablet by mouth 3 times a day. Take 1/2 half tablet three times a week for one week. If tolerate ok, then increase to 1 tablet three times a day 90 tablet 2 09/14/2024 12/14/19 25 Active Active Problems Problem Noted Date Diagnosed Date Cervical dystonia 09/14/2024 Social History Tobacco Use Types Packs/Day Years Used Date Smoking Tobacco: Never Assessed Comments Unknown Sex and Gender Information Value Date Recorded Sex Assigned at Female 09/14/2024 1:56 PM EST Legal Sex Female 1:14 PM EDT Gender Identity Female 09/14/2024 1:56 PM EST Sexual Orientation Not on file Last Filed Vital Signs Vital Sign Reading Time Taken Comments Blood Pressure 136/81 09/14/2024 2:08 PM EST Pulse 96 09/14/2024 2:08 PM EST Temperature 36.3 ??C (97.4 ??F) 09/14/2024 2:06 PM ES T Respiratory Rate 20 09/14/2024 2:06 PM EST Oxygen Saturation - - Inhaled Oxygen Concentration - - Weight 76.2 kg (168 lb) 09/14/2024 2:06 PM EST Height - - Body Mass Index - - Plan of Treatment Upcoming Encounters Date Type Department Care Team (Late st Contact Info) Description 10/28/2024 1:00 PM EST Appointment [facility] [address] [place] [phone] Dianna Ragsdale MD [address] [place] [id number] Saran Noland RT(R) 12/07/2024 3:30 PM EDT Office Visit [facility] [address] [place] [address] Jp Macdonald MD [address] [place] [address] [place] [address] Insurance Care Teams Nurseryperson Relationship Specialty Start Date End Date Mao Sánchez [address] [place] [address] dr Jimbo Choi, [place] [id number] PCP - General Internal Medicine 09/14/24
--- OUTSIDE RECORDS SUMMARY | 2024-09-26 18:01 | XMS_ITS | Encounter Summary ---
Author Organization [facility] Address [address] [place] [address] Care Team Providers Care Box Car Bracer Name Role Phone GonzaloMao Duc Primary Care Provider [phone] Reason for Visit * Consultation (Routine) - Authorized Specialty Diagnoses / Procedures Referred By Contac t Referred To Contact Neurology Diagnoses Dystonia Procedures NEW MOVEMENT Patient, Has No Pcp Or Ref DO NOT EDIT THIS RECORD VIA PROVIDER ON THE FLY Jp Macdonald MD [address] [place] [address] Phone: tel: fax: Referral ID Status Reason Start Date Expiration Date V isits Requested Visits Authorized [id number] Authorized 09/14/2024 03/16/2026 6 6 Encounter Details Date Type Department Care Team (Late st Contact Info) Description 09/14/2024 1:45 PM EST Office Visit [facility] [address] [place] [address] Jp Macdonald MD [address] [place] [address] Cervical dystonia (Primary Dx) Social History Tobacco Use Types Packs/Day Years Used Date Smoking Tobacco: Never Assessed Comments Unknown Sex and Gender Information Value Date Recorded Sex Assigned at Female 09/14/2024 1:56 PM EST Legal Sex Female 1:14 PM EDT Gender Identity Female 09/14/2024 1:56 PM EST Sexual Orientation Not on file documented as of this encounter Last Filed Vital Signs Vital Sign Reading [...] - - Body Mass Index - - documented in this encounter Progress Notes * Dianna Ragsdale MD - 09/22/2024 2:12 PM EST I saw and evaluated the patient. Case discussed with the resident/fellow and I agree with the findings and plan as documented in the resident's/fellow's note. * Jp Macdonald MD - 09/14/2024 2:10 PM EST Movement Disorders Clinic New Patient Visit Reason for Visit: Dystonia HPI: Em Kendall is a 54 y.o. female with PMH of cervical dystonia who presented to neurology clinicto establish new neurologist. She was previously followed at [facility] and she wanted to move her care here as this location is closer to her. She was diagnosed 7 years ago, previously she was diagnosed wrongly first first was treated with medications muscle relaxer for muscle stiffness, but was worsening, then was referred to neurologist and they diagnosed with dystonia. She also has pain from neck arthitisi and herniated disk. She has been getting Botox injections every 3 months at [facility], last botox was June 15. Current medications: baclofen 10 mg twice a day + extra daily prn if needed, trihexyphenidyl 4 mg twice a day (was reduced from 3 times a day due to somnolence) There was a consideration of adding carbidopa levodopa starting with 1/2 tablets 3 times a day and plan to increase to 1 tablet 3 times a day with goal to reduce trihexyphenidyl dose few years ago but it was never done. Using head pad, and occasionally neck brace Was also diagnosed with essential tremor (head) on propranolol 10 mg BID which helped. (Before getting diagnosed with dystonia) Denies walking issues, balance / Falls normal, no issues getting out of chair/car/bed, no cognitiveissues, hallucinations/psychosis, mood stable, sleep is good, no nocturia, no constipation, no speech or hypophonia, chewing or swallowing issues Last PT was several years ago, but now continues to do exercises she learned occasionally. REVIEW OF SYSTEMS: A 10-point review of systems was completed. All other systems are negative. Physical Examination Vitals: 09/14/24 1406 09/14/24 1408 BP: 139/83 136/81 BP Location: Right arm Right arm Patient Position: Sitting Standing Pulse: 90 96 Resp: 20 Temp: 36.3 ??C (97.4 ??F) TempSrc: Temporal Weight: 76.2 kg (168 lb) General: She was not in distress. There was no facial masking with normal blink frequency and no sialorrhea. Mental Status: She was alert and oriented. Language was fluent. Voice volume was normal. Cranial Nerves: Pupils were equal and reactive to light. There was no afferent pupillary defect. Visual hatch were normal. Extra-ocular movements were full. There was no supranuclear gaze palsy or square-wave jerks noted. No ptosis or nystagmus. Face was symmetric with normal sensation and strength. Hearing was intact. Palate movements were normal. Her head was leaned towards right and turned towards left. Strength normal. Normal tongue bulk and speed of movement. Motor: Normal muscle bulk. Full strength throughout, no pronator drift. No rigidity was noted in the upper extremities with contralateral facilitation. No rest tremor. No postural tremor, however reports some head shaking for which she uses propranolol. No dyskinesias. Body bradykinesia was not noted. Finger taps normal. Coordination: There was no dysmetria on FNF or HKS. Sensory: Sensation to light touch was normal. Reflexes: Biceps, triceps, brachioradialis, and patellar DTRs were 2+ and symmetric. Plantar responses were flexor. Gait: able to rise from chair with crossed arms, gait normal STUDIES REVIEWED: I reviewed patient's lab and imaging results personally. ASSESSMENT Em Kendall is a 54 y.o. female with PMH of cervical dystonia who presented to neurology clinicto establish new neurologist due to closer location. She was diagnosed 7 years ago. She was previously followed at [facility] and has been getting botox injections every 3 month, last Jun 15. She is on multiple medications including, baclofen 10 mg twice a day + extra daily prn if needed, trihexyphenidyl 4 mg twice a day (was reduced from 3 times a day due to somnolence), as well as propranolol which was started for ?essential tremor of head before her dystonia diagnosis. We plan to re-arrange her po medications as she is on multiple medicataions with sedative side effects and possibly discontinue propranolol and it was unlikely to be essential tremor. We will start carbidopa levodopa starting with 1/2 tablets 3 times a day and plan to increase to 1 tablet 3 times a day with goal to reduce trihexyphenidyl dose. We will establish her botox injections here and after her injection we will follow up here to reevaluate her medications. The case was discussed with the attending physician, Dr. Ragsdale, who agreed to the above-mentioned plan. Please do not hesitate to contact with us if you need any further information. Sincerely, Jp Macdonald MD PGY-4 documented in this encounter Plan of Treatment Upcoming Encounters Date Type Department Care Team (Late st Contact Info) Description 10/28/2024 1:00 PM EST Appointment [facility] [address] [place] [phone] Dianna Ragsdale MD [address] [place] [phone] Saran Noland, RT(R) 12/07/2024 3:30 PM EDT Office Visit [facility] [address] [place] [address] Jp Macdonald MD [address] [place] [address] [place] [address] documented as of this encounter Visit Diagnoses Diagnosis Cervical dystonia- Primary Spasmodic torticollis documented in this encounter Care Teams Box Car Bracer Relationship Specialty Start Date End Date Po, Mao Xavier [address] [place] [address] [place] [address] PCP - General Internal Medicine 09/14/24 documented as of this encounter
--- OUTSIDE RECORDS SUMMARY | 2024-09-26 18:01 | XMS_ITS | Encounter Summary ---
Author Organization [facility] Address [address] [place] [address] Care Team Providers Care Oracle Reports Developer Name Role Phone GonzaloMao Duc Primary Care Provider [phone] Reason for Visit * Reason Onset Date Comments Prior Authorization 09/16/2024 PA for Botox approved Encounter Details Date Type Department Care Team (Late st Contact Info) Description 09/16/2024 Telephone [facility] [address] [place] [address] Dianna Ragsdale MD [address] [place] [address] Prior Authorization (PA for Botox approved) Social History Tobacco Use Types Packs/Day Years Used Date Smoking Tobacco: Never Assessed Comments Unknown Sex and Gender Information Value Date Recorded Sex Assigned at Female 09/14/2024 1:56 PM EST Legal Sex Female 1:14 PM EDT Gender Identity Female 09/14/2024 1:56 PM EST Sexual Orientation Not on file documented as of this encounter Miscellaneous Notes * Telephone Encounter - Roxana Duffy - 09/16/2024 6:19 PM EST 09/16/2023 PA REQUEST FOR: [id number] BOTOX PA IS APPROVED UNDER THIS PATIENT'S CCA MEDICAL BENEFIT, ICD10 G24.3 EFFECTIVE 09/15/2024 TO 09/14/2025 FOR 4 VISITS, PA #[id number] (AJ) PT is all set documented in this encounter Plan of Treatment Upcoming Encounters Date Type Department Care Team (Late st Contact Info) Description 10/28/2024 1:00 PM EST Appointment [facility] [address] [place] [id number] Dianna Ragsdale MD [address] [place] [phone] Saran Noland, RT(R) 12/07/2024 3:30 PM EDT Office Visit [facility] [address] [place] [id number] Jp Macdonald MD [address] [place] [address] [place] [address] documented as of this encounter Visit Diagnoses Not on filedocumented in this encounter Care Teams Oracle Reports Developer Relationship Specialty Start Date End Date Mao Sánchez [address] [place] [address] [place] [id number] PCP - General Internal Medicine 09/14/24 documented as of this encounter
--- OUTSIDE RECORDS SUMMARY | 2024-09-26 18:01 | XMS_ITS | Clinical Summary ---
Author Organization [facility] Address [address] [place] [address] Care Team Providers Care Corporate Security Manager Name Role Phone Mao Sánchez Primary Care Provider [phone] Allergies No known active allergies Medications baclofen [...] Noted Date Diagnosed Date Cervical dystonia 09/14/2024 Encounters Date Type Department Care Team Description 09/16/2024 Telephone [facility] [address] [place] [address] [phone] Dianna Ragsdale MD Prior Authorization (PA for Botox approved) 09/14/2024 1:45 PM EST Office Visit [facility] [address] [place], [place] [phone] Jp Macdonald MD Cervical dystonia (Primary Dx) from Last 3 Months Social History Tobacco Use Types Packs/Day Years [...] Info) Description 10/28/2024 1:00 PM EST Appointment [facility] [address] [place] [address] Dianna Ragsdale MD [address] [place] [phone] Saran Noland RT(R) 12/07/2024 3:30 PM EDT Office Visit [facility] [address] [place] [phone] Jp Macdonald MD [address] [place] [address] [place] [address] Health Maintenance Due Date Last Done Comments Cervical Cancer Screening 1968 Cologuard 1968 Colon Cancer Screening 1968 Colonoscopy 1968 FOBT / Fit Test 1968 HIV Screening 1968 HPV and Pap Smear 1968 Hepatitis C Screening 1968 Pap Smear 1968 Sigmoidoscopy 1968 Hepatitis B Vaccines (1 of 3 - 19+ 3-dose series) 1987 DTaP,Tdap,and Td Vaccines (1 - Tdap) 1990 Mammogram 2008 Zoster Vaccines (1 of 2) 2018 COVID-19 Vaccine (3 - 2023- season) 2024 02/02/2021, 01/12/2021 Alcohol/Substance Use Screening 08/31/2024 Depression Screening and Follow-Up 08/31/2024 Social Drivers of Health Annual Screening 08/31/2024 RSV Vaccine (60+ years old and patients) (1 - 1-dose 75+ series) 2043 Pneumococcal Vaccine: Pediatric (0-5 Years) and At-Risk Patients (6-64 Years) Aged Out 05/17/2014 No longer eligible based on patient's age to complete this topic Influenza Vaccine Completed 07/05/2024, , 08/15/2021, Additional history exists Insurance Care Teams Corporate Security Manager Relationship Specialty Start Date End Date Mao Sánchez [address] [place] [address] dr Jimbo Choi, [place] [address] PCP - General Internal Medicine 09/14/24
== END 2024-09-26 13:19 | disposition home or self-care (01) ==
LOC: HO.MAMMO 13:18
PROVIDERS: PCP Internal Medicine; Visit Provider Internal Medicine
DX: Z12.31 Encounter for screening mammogram for malignant neoplasm of breast (principal)
CPT/HCPCS: 77063; 77067

== ENCOUNTER → 2024-09-26 13:30 | Outpatient (BNV) | payer OTHER, SELFPAY | PROVIDERS: PCP Internal Medicine; Visit Provider Internal Medicine | DX: Z12.31 Encounter for screening mammogram for malignant neoplasm of breast (principal) | CPT/HCPCS: 77063; 77067 ==

== ENCOUNTER 2024-10-11 13:30 | Outpatient (AMB) | payer OTHER, SELFPAY ==
--- NOTE | 2024-10-11 13:34 | MHC.AMNUTRGE ---
VS Expanded 10/11/24 13:35 Height 5 ft 1 in Weight 165 lb 9.074 oz BMI 31.3 Intake Visit Reasons: T2DM Allergies adhesive tape Allergy (Intermediate, Verified 09/15/24 16:00) Rash Nutrition Presentation Details: Pt presents for MNT f/u for T2DM Pt reports having gotten a bike peddlar - Reports challenges with increased intake of sugary foods BS Monitoring Most Recent Diabetes Results: No Data to Display PFS Medical History (Updated 07/05/24 @ 15:01 by Mao Sánchez MD) Carpal tunnel syndrome of right wrist RUQ abdominal pain Menopause Menopause Cervical disc disease Alcohol abuse GERD (gastroesophageal reflux disease) Obesity (BMI 30-39.9) Hypercholesterolemia Vitamin D deficiency History of renal calculi Hypertension Type 2 diabetes mellitus with hyperglycemia Benign head tremor Fatty liver Depressed Obesity Diabetes Dystonia Surgical History Hx of colonoscopy S/P Botox injection History of carpal tunnel release History of extraction of renal calculus Family History Father Coronary artery disease Mother Emphysema lung Uterine cancer Paternal Uncle Myocardial infarction Paternal Aunt Breast cancer Myocardial infarction Brother CVA (cerebral vascular accident) Social History Housing: Apartment Alcohol intake: former Patient Tobacco Use Status: Never used Tobacco Tobacco use type: Cigarette e-Cigarette/Vaping Use: Never Used Second Hand Smoke Exposure: No Advance Directives Date on File: 06/04/20 service: No Current occupational status: disabled Current occupation: rt hand Cognitive needs: No Hearing needs: No Vision needs: Yes Assessment & Plan Assessment & Plan (1) Type 2 diabetes mellitus with hyperglycemia: Comment: [facility] Code(s): E11.65 - Type 2 diabetes mellitus with hyperglycemia Category: Medical Qualifiers: Diabetes mellitus nursing home insulin use: without sales support rep use Qualified Code(s): E11.65 - Type 2 diabetes mellitus with hyperglycemia Plan: Used wt?: ? 76 ? ? ? kg 08/23, 75kg (10/25) Est kcal as per MSJ: 1639 (40% carb, 30% fat/prot) Est fluid needs: 1900 ml/d (25 ml/kg bw) Rec fiber:? increase to 8-10 g per day and gradually increase to 25 g/d? or? as tolerated? Rec Na: < ? 2000 mg /d Educate patient on:? (R= Reviewed,? V = verbalizes understanding ? N/R= Needs review? ? N/A= not applicable) Food sources of carbohydrates and serving adequate serving sizes :??R Difference between complex carbohydrates and simple carbohydrates, role of fiber:??R Differences between fats (MUFA/PUFA/saturated fats, trans fats) and food sources of various fats:??? R Food sources of sodium and salt and? healthy modifications for heart health and kidney health: R, V Vitamins and minerals:? R How to interpret food labels:? R, V Healthy Plate method concept:??R, V? Physical activity: benefits and precaution:? R, V review BG goal as per ADA (80-130 in the fasting state and 80-180 , 2 hours after a meal) , importance of monitoring bg, importance of glucose control for heart health and overall health Reduction fof sugars/total carb for bg improvement and prevention of cardiovascular disease: R fiber rich low sugar options : R Patient Instructions: Engage in physical activity goal 30 minutes /day (walking , bike peddlar) Work on reduction and choosing fiber rich low sugar snack options (see list of less than 100 calorie options) Coding Level of Care Code Nutr Indiv Subseq ([id number]) Diagnoses Type 2 diabetes mellitus with hyperglycemia, without long-term current use of insulin E11.65 Diabetes mellitus sales support rep insulin use: without sales support rep use Time Spent (min) 20
[2024-10-11 13:35] VITALS: BMI 31.3
== END 2024-10-11 14:07 | disposition home or self-care (01) ==
PROVIDERS: PCP Internal Medicine; Visit Provider Dietitian, Registered
DX: E11.65 Type 2 diabetes mellitus with hyperglycemia (principal)

== ENCOUNTER → 2024-10-11 13:30 | Outpatient (BNVA) | payer OTHER, SELFPAY | PROVIDERS: PCP Internal Medicine; Visit Provider Dietitian, Registered | DX: E11.65 Type 2 diabetes mellitus with hyperglycemia (principal) | CPT/HCPCS: 97803 ==

== ENCOUNTER 2024-11-18 14:52 | Outpatient (REF) | payer OTHER, SELFPAY ==
[2024-11-18 15:19] LABS: MANUAL DIFF FLAG NO
[2024-11-18 16:10] LABS: Basophils Percent Auto 0.6 % (0-2); Eosinophils Absolute Auto 0.1 X10*3/uL (0.0-0.4); Eosinophils Percent Auto 1.3 % (0-4); Hemoglobin 13.6 g/dl (12.0-16.0); Imm Gran Abs Auto 0.01 X10*3/uL (0.00-0.03); Imm Gran Pct Auto 0.1 % (0.0-0.4); Lymphocytes Absolute Auto 2.2 X10*3/uL (1.2-4.9); Lymphocytes Percent Auto 32.4 % (20-40); Mean Corpuscular HGB Conc 32.4 g/dl (31.0-35.0); Mean Corpuscular Hemoglobin 28.6 pg (27.0-33.0); Mean Corpuscular Volume 88.4 fL (80.0-98.0); Mean Platelet Volume 9.8 fL (9.4-12.3); Monocytes Absolute Auto 0.6 X10*3/uL (0.1-1.2); Monocytes Percent Auto 8.5 % (2-11); Neutrophils Absolute Auto 3.8 x10*3/uL (2.0-8.3); Neutrophils Percent Auto 57.1 % (45-73); Platelet Count 254 X10*3/uL (160-400); Red Blood Count 4.75 X10*6/uL (4.20-5.50); Red Cell Distribution Width 13.2 % (11.0-16.0); White Blood Count 6.7 X10*3/uL (4.8-10.8)
[2024-11-18 16:18] LABS: Estimated Average Glucose 160 mg/dL; Hemoglobin A1c % 7.2 % (<6.0); Total Hemoglobin (HGBA1C) 3601.0738 umol/L
[2024-11-18 17:23] LABS: Folate 14.8 ng/mL (> or = 4.0); Vitamin B12 556 pg/mL (200-900)
[2024-11-18 17:49] LABS: Alanine Aminotransferase 29 U/L (0-31); Albumin Level 4.3 g/dL (3.5-5.0); Alkaline Phosphatase 70 U/L (39-117); Anion Gap 13 (12-20); Aspartate Amino Transferase 25 U/L (5-31); Bilirubin Total 0.6 mg/dL (0.0-1.0); Blood Urea Nitrogen 13 mg/dL (9-16); Calcium 9.5 mg/dL (8.4-10.2); Carbon Dioxide 26 mmol/L (22-29); Chloride 106 mmol/L (96-108); Cholesterol 160 mg/dL (<200); Estimated Glomerular Filt Rate > 60; Glucose Random 106 mg/dL (60-115); HDL Cholesterol 68 mg/dL (>40); LDL Cholesterol Calculated 79 mg/dL (<100); Potassium 4.5 mmol/L (3.3-5.1); Sodium 140 mmol/L (135-145); Total Protein 7.8 g/dL (6.5-8.0); Triglycerides 66 mg/dL (<150)
[2024-11-18 17:52] LABS: Thyroid Stimulating Hormone 0.98 uIU/mL (0.32-4.0); Vitamin D 25-OH Total 31.9 ng/mL (>30)
[2024-11-18 18:11] LABS: Creatinine Urine 50.89 mg/dL; Microalbumin Urine < 5.0 mg/L
== END 2024-11-18 14:53 | disposition home or self-care (01) ==
LOC: HO.LAB 14:52
PROVIDERS: PCP Internal Medicine; Visit Provider Internal Medicine
DX: E11.65 Type 2 diabetes mellitus with hyperglycemia (principal); E78.00 Pure hypercholesterolemia, unspecified
CPT/HCPCS: 36415; 80053; 80061; 82043; 82306; 82570; 82607; 82746; 83036; 84439; 84443; 85025

== ENCOUNTER 2024-11-21 16:23 | Outpatient (AMB) | payer OTHER, SELFPAY ==
[2024-11-21 16:26] VITALS: BP 130/70; PULSE 85; TEMP 36.3; O2SAT 99; BMI 30.6
--- NOTE | 2024-11-21 16:26 | MHC.PC.OV ---
Vital Signs 11/21/24 16:26 Height 5 ft 1 in Weight 162 lb BMI 30.6 BP 130/70 Blood Pressure Location Lt brachial Position Sitting Pulse 85 Pulse Source Pulse Oximeter Temp 97.3 F Temp Source Temporal Artery Scan Pulse Oximetry (%) 99 Oxygen Delivery Method Room Air Intake Visit Reasons: annual exam Intake Note: Patient is here today for a physical. [employer] Mdm Architect Required: No Accompanied by: Self / Same As Patient Allergies adhesive tape Allergy (Intermediate, Verified 11/21/24 16:27) Rash Medication List - Last Reconciled 11/21/24 by Mao Sánchez MD baclofen 10 mg PO BID [blood glucose machine As directed] blood pressure monitor (Blood Pressure Kit) As directed blood sugar diagnostic (FreeStyle Lite Strips) 1 strip miscellaneous BID blood-glucose meter (FreeStyle Lite Meter kit) As directed carbidopa-levodopa 25-100 mg 0.5 tabs PO TID cholecalciferol (vitamin D3) 25 mcg PO DAILY empagliflozin 25 mg PO DAILY 30 days gabapentin 300 mg PO TID glipizide 5 mg PO DAILY [glucometer strips As directed] [lancets As directed] lancets (FreeStyle Lancets) As directed check BS BID metformin 1,000 mg PO BID 90 days multivitamin 1 tab PO DAILY propranolol 10 mg PO BID simvastatin 5 mg PO BEDTIME tirzepatide 5 mg (0.5 mL) subcut QWEEK 30 days tramadol 50 mg PO BID PRN trihexyphenidyl 4 mg PO BID Tobacco use date assessed: 09/15/24 Dental Screening Dental Screen Date: 09/15/24 [facility] Medical History (Updated 11/21/24 @ 16:38 by Mao Sánchez MD) Breast cancer screening by mammogram Carpal tunnel syndrome of right wrist RUQ abdominal pain Menopause Menopause Cervical disc disease Alcohol abuse GERD (gastroesophageal reflux disease) Obesity (BMI 30-39.9) Hypercholesterolemia Vitamin D deficiency History of renal calculi Hypertension Type 2 diabetes mellitus with hyperglycemia Benign head tremor Fatty liver Depressed Obesity Diabetes Dystonia Surgical History Hx of colonoscopy S/P Botox injection History of carpal tunnel release History of extraction of renal calculus Family History Father Coronary artery disease Mother Emphysema lung Uterine cancer Paternal Uncle Myocardial infarction Paternal Aunt Breast cancer Myocardial infarction Brother CVA (cerebral vascular accident) Social History Housing: Apartment Alcohol intake: former Patient Tobacco Use Status: Never used Tobacco Tobacco use type: Cigarette e-Cigarette/Vaping Use: Never Used Second Hand Smoke Exposure: No Advance Directives Date on File: 06/04/20 service: No Current occupational status: disabled Current occupation: rt hand Cognitive needs: No Hearing needs: No Vision needs: Yes Questionnaire Thrive Questionnaire Date Thrive assessed: 09/15/24 I am a: Patient What is your living situation today?: I have a steady place to live Within the past 12 months, did the food you bought not last and you didn't have the money to get more?: Often true Within the past 12 months, did you worry whether your food would run out before you got money to buy more?: Often true Do you have trouble paying for medicines?: No Do you have trouble getting transportation to medical appointments?: No Do you have trouble paying your heating and electricity bill?: Yes Do you have trouble taking care of your child, family member or friend?: No Do you have trouble with day-to-day activities such as bathing, preparing meals, shopping, managing finances, etc.?: No Are you currently unemployed and looking for a job?: No Are you interested in more education?: No THRIVE Score: 3 AUDIT C Alcohol Use Questionnaire (AUDIT-C) 1. How often do you have a drink containing alcohol?: Never Total Score: 0 ADRIAN-7 AMB Questionnaire ADRIAN-7 Date ADRIAN - 7 assessed: 09/15/24 Feeling nervous, anxious, or on edge: 0 = Not at all Not being able to stop or control worryin = Several days Worrying too much about different things: 1 = Several days Trouble relaxin = More than half the days Being so restless that it is hard to sit still: 1 = Several days Becoming easily annoyed or irritable: 0 = Not at all Feeling afraid as if something awful might happen: 0 = Not at all Total ADRIAN-7 score (0-4 normal; 5-9 mild; 10-14 moderate; 15-21 severe): 5 Source: Developed by Drs. Pino Mcneill, Joann Ferraro, Law Osborne and colleagues, with an educational jessee from [employer]. Review of Systems Const Denies poor appetite and Denies weakness Eyes Denies no additional complaints ENT Reports Normal hearing present, Denies dizziness, Denies nasal congestion, Denies tinnitus and Denies sore throat Card Denies chest pain, Denies syncope, Denies rapid heart rate and Denies dyspnea Resp Denies cough and Denies dyspnea GI Denies change in stool character, Reports constipation, Denies diarrhea, Denies nausea and Denies vomiting Denies urinary frequency, Denies difficulty voiding and Denies dysuria Neuro Reports Normal hearing present, Denies confusion, Denies dizziness, Denies syncope and Denies weakness Psych Denies confusion Physical exam (Primary Care) Vital Signs: Last Vital Signs Temp 97.3 F 11/21/24 16:26 Pulse 85 11/21/24 16:26 BP 130/70 11/21/24 16:26 Pulse Ox 99 11/21/24 16:26 Oxygen Delivery Method Room Air 11/21/24 16:26 BMI result Body Mass Index 30.6 Tobacco/Smoking Status: Tobacco use Status Tobacco use date assessed 09/15/24 11/21/24 16:27 Patient Tobacco Use Status Never used Tobacco 11/21/24 16:27 Tobacco use type Cigarette 11/21/24 16:27 e-Cigarette/Vaping Use Never Used 11/21/24 16:27 Thrive Assessment: Date of Thrive Assessment Date Thrive assessed 09/15/24 11/21/24 16:27 Const General: No confusion Orientation/consciousness: No confusion HENAK Head: Yes normocephalic Ears: external ears normal and TM's normal bilaterally Face and sinus: Yes normal facial exam Mouth: moist mucous membranes Throat: Yes tonsils normal Eyes Conjunctivae: conjunctivae normal Pupils: Equal, round and reactive pupils present and Pupil accommodation reflex normal Direct Ophthalmoscopy: normal light reflex Neck Neck: No lymphadenopathy Thyroid: Thyroid normal Chest Chest palpation & inspection: normal inspection of the chest Resp Effort & Inspection: normal respiratory effort and no audible wheezes Auscultation: clear to auscultation bilaterally, no crackles, no wheezes and lung sounds not diminished Cardio Rate: regular rate Rhythm: regular rhythm Peripheral pulses: radial pulses present and dorsalis pedis present GI Other: colon test pending Palpation (GI): no masses Auscultation: normal bowel sounds and normoactive bowel sounds Rectal Exam - Female: deferred Skin General skin exam: no rashes or lesions noted Rashes: no rashes Neuro General: No confusion Cranial nerves: Yes Equal, round and reactive pupils present and Yes Normal hearing present Cognition (Neuro): normal cognition Gait exam (Neuro): Normal gait present Motor exam (neuro): 5/5 motor strength present throughout Deep tendon reflexes (DTR's): Right brachioradialis reflex intensity grade: 2+, Left brachioradialis reflex intensity grade: 2+, Right patellar reflex intensity grade: 2+ and Left patellar reflex intensity grade: 2+ Extrem Other: pedal pulse and pin prick normal General: No edema Coding Level of Care Code Est Pt Prev Care 40-64y(36354) Diagnoses Annual physical exam Z00.00 Type 2 diabetes mellitus with hyperglycemia, without long-term current use of insulin E11.65 Diabetes mellitus emt intermediate insulin use: without nursing home use Essential hypertension I10 Hypertension type: essential hypertension Hypercholesterolemia E78.00 Gastroesophageal reflux disease without esophagitis K21.9 Esophagitis presence: without esophagitis Fatty liver K76.0 Dystonia G24.9 Tubulovillous adenoma of colon D12.6 Assessment & Plan Assessment & Plan (1) Annual physical exam: Code(s): Z00.00 - Encounter for general adult medical examination without abnormal findings Category: Medical Plan: Patient is advised to eat healthy, keep well hydrated, keep active and have adequate sleep. (2) Type 2 diabetes mellitus with hyperglycemia: Comment: Eye and Lasik Code(s): E11.65 - Type 2 diabetes mellitus with hyperglycemia Category: Medical Qualifiers: Diabetes mellitus emt intermediate insulin use: without nursing home use Qualified Code(s): E11.65 - Type 2 diabetes mellitus with hyperglycemia Plan: Decrease the amount of carbohydrate intake, pasta, bread, rice and potatoes are all sugar and that is aside from all the sweet stuff, remember that fruits are good but they are Sweet also. Hemoglobin A1c goal of less than 6.5. Patient is on Jardiance 25 mg once a day glipizide 5 mg once a day metformin a 1000 mg twice a day patient is on tirzepatide (3) Hypertension: Code(s): I10 - Essential (primary) hypertension Category: Medical Qualifiers: Hypertension type: essential hypertension Qualified Code(s): I10 - Essential (primary) hypertension Plan: Continue with blood pressure medication. Decrease salt intake and exercise on propranolol 10 mg twice a day and (4) Hypercholesterolemia: Code(s): E78.00 - Pure hypercholesterolemia, unspecified Category: Medical Plan: Avoid fried foods, chicken skin, eggs, butter margarine, pastries and meat. Be it pork or beef they have a lot of cholesterol LDL goal of less than 100 and triglyceride of less than 150 on simvastatin 5 mg once a day (5) GERD (gastroesophageal reflux disease): Code(s): K21.9 - Gastro-esophageal reflux disease without esophagitis Category: Medical Qualifiers: Esophagitis presence: without esophagitis Qualified Code(s): K21.9 - Gastro-esophageal reflux disease without esophagitis Plan: Avoid the foods that causes that usually spicy foods, tomato products, juices, coffee, soda and foods that your sensitive to. After eating do not lie down, allow 3-4 hours before in lie down. And keep the head of bed above 30 degrees to avoid the acid from going up. (6) Fatty liver: Comment: a 50-year-old overweight, diabetic female with past history of alcohol use follows up after recent ultrasound. Ultrasound does reveal hepatic steatosis, no lesions. Liver enzymes were normal AST/ALT . Code(s): K76.0 - Fatty (change of) liver, not elsewhere classified Category: Medical Plan: Low-fat diet and exercise (7) Dystonia: Comment: Cervical, Sees Dr Siegel in [place] Code(s): G24.9 - Dystonia, unspecified Category: Medical Plan: Continue to follow-up with Neurology. (8) Tubulovillous adenoma of colon: Comment: 08/19 3.5 - 4 cms TVA with focal HGD in the sigmoid colon Code(s): D12.6 - Benign neoplasm of colon, unspecified Category: Medical Plan: Patient has a schedule with Gastroenterology in February for the colonoscopy Plan History of Present Illness The patient is a 54-year-old female presenting for an annual physical examination. Her medical history includes obesity, with a chronic condition of dystonia managed by baclofen, and recently initiated treatment with carbidopa-levodopa for improved symptom control. She manages her type 2 diabetes with medications, reported an improved Hemoglobin A1c of 7.2 in her recent lab results, although her goal is to achieve less than 6.5. She is actively managing her essential hypertension and hypercholesterolemia, maintaining a controlled LDL level. Her history of recurrent major depression is currently stable. The patient?s health regimen includes a low-fat diet and regular exercise to alleviate gastroesophageal reflux symptoms. She discusses ongoing neck and back pain management, exacerbated by a delay in Botox treatment scheduling. Health Maintenance - Mammogram up to date as of August 2024 - Colonoscopy scheduled for February 2025 - Diabetes management with goal Hemoglobin A1c <6.5 - Cholesterol management with LDL goal <100 mg/dL and triglyceride goal <150 mg/dL - Low-fat dietary plan for GERD - Regular exercise regimen - Evaluated bloodwork: Hemoglobin A1c at 7.2, LDL at 79, normal liver and renal function Social History - Denies alcohol consumption and smoking history - Regular exercise as part of GERD management - Adheres to a low-fat diet - Family history significant for heart disease and stroke Review of Systems - General: Denies recent fever, unexplained weight loss, or fatigue - Cardiovascular: Denies dizziness, syncope, or chest discomfort related to exertion - Gastrointestinal: Denies nausea, vomiting, swallowing difficulties; occasional heartburn reported - Neurological: Reports chronic neck and back pain; denies dizziness or headaches - Musculoskeletal: Reports routine physical activity with stability in symptoms - Psychiatric: Denies current depressive symptoms - Genitourinary: Normal urinary habits; wakes once nightly for urination - Integumentary: Reports occasional site-specific itchiness post-injection Physical Exam General: Cooperative, healthy appearing, comfortable, no acute distress and well developed Orientation: Patient oriented x3 Limitations: No limitations Head: Normal to inspection Ears: Hearing grossly normal bilaterally Nose: Normal external nose present Face and sinus: Normal facial exam Eyes: Appearance normal, both eyes and all related structures Neck: Normal visual inspection and Yes full ROM Respiratory: Normal respiratory effort and able to speak in complete sentences. Clear to auscultation bilaterally Cardiovascular: Regular rate and rhythm. Normal S1 and S2 GI: Normal to inspection. Soft to palpation and nontender Skin: No rashes or lesions noted Neuro: Patient oriented x3 Extremities: Normal to inspection Results - Labs: - Hemoglobin A1c: 7.2 - LDL: 79 mg/dL - Normal renal function - Normal liver function tests - Normal blood count and electrolytes Plan The patient's diabetes management will be continued with her current medication regimen, including the potential for dosage adjustment if necessary to reach target Hemoglobin A1c. Her blood pressure remains under control with propranolol, and lipid levels achieved due to simvastatin therapy. Dystonia will be monitored with continued use of her current medications and Botox injections to be resumed as scheduled. She is advised to maintain her low-fat diet and exercise plan to manage GERD symptoms and her overall cardiovascular health. We will ensure that her upcoming colonoscopic examination is carried out on schedule. Ongoing blood tests indicate stable organ function, which will continue to be monitored. Patient was informed and verbally consented to the use of an ambient scribe for clinic note documentation during this visit. Discussion Notes During our visit, I explained to the patient the importance of maintaining her current treatment protocol for diabetes and the benefits it brings in achieving her Hemoglobin A1c goals. We discussed the introduction of carbidopa-levodopa for dystonia, including its potential to improve her condition and the plan to reduce baclofen if symptoms improve. I informed the patient about the significance of regular low-fat diet and exercise to manage her GERD and maintain cardiovascular health. We reviewed her scheduled follow-up with gastroenterology for a colonoscopy in February and affirmed the need for continued screening. The patient was advised of potential side effects from medications and urged to communicate any concerns promptly. We agreed on the continuous monitoring of her blood tests to ensure optimal health management. Patient Instructions - Continue current medication regimen as prescribed. - Follow low-fat diet and engage in regular exercise. - Monitor blood sugar levels regularly and document any significant changes. - Attend scheduled colonoscopy in February 2025. - Report any new symptoms or side effects from medications promptly. - Keep all follow-up appointments with specialists. - Contact the office or seek care if you experience any concerning symptoms or significant changes in your condition. Medications: Changed From trihexyphenidyl take 2 tabs in am 1 noon and 2 at night orally ; give with food (meal/snack) 30 days 86 tabs 0RF G24.9 - Dystonia, unspecified To trihexyphenidyl 4 mg PO BID G24.9 - Dystonia, unspecified From empagliflozin 25 mg PO DAILY 30 days 30 tabs 2RF E11.65 - Type 2 diabetes mellitus with hyperglycemia To empagliflozin 25 mg PO DAILY 90 days 90 tabs 2RF E11.65 - Type 2 diabetes mellitus with hyperglycemia Refilled tramadol 50 mg PO BID PRN 45 tabs 0RF pain G24.9 - Dystonia, unspecified propranolol 10 mg PO BID 180 tabs 3RF D12.6 - Benign neoplasm of colon, unspecified
--- OUTSIDE RECORDS SUMMARY | 2024-11-21 18:55 | XMS_ITS | Clinical Summary ---
Author Organization [facility] Address [address] [place] [address] Care Team Providers Care Repack Room Worker Name Role Phone Mao Sánchez Primary Care Provider [phone] Allergies No known active allergies Medications baclofen [...] Type Department Care Team Description 09/16/2024 Telephone [facility] [address] [place] [address] [id number] Dianna Ragsdale MD Prior Authorization (PA for Botox approved) 09/14/2024 1:45 PM EST Office Visit [facility] [address], [place] [id number] Jp Macdonald MD Cervical dystonia (Primary Dx) [...] Mass Index - - Plan of Treatment Health Maintenance Due Date Last Done Comments Cervical Cancer Screening 1968 Cologuard 1968 Colon Cancer Screening 1968 Colonoscopy 1968 FOBT / Fit Test 1968 HIV Screening 1968 HPV and Pap Smear 1968 Hepatitis C Screening 1968 Pap Smear 1968 Sigmoidoscopy 1968 Hepatitis B Vaccines (1 of 3 - 19+ 3-dose series) 1987 DTaP,Tdap,and Td Vaccines (1 - Tdap) 1990 Mammogram 2008 Pneumococcal Vaccine: 50+ Ye ars (2 of 2 - PCV) 2018 05/17/2014 Zoster Vaccines (1 of 2) 2018 COVID-19 Vaccine (3 - 2023-2 5 season) 2024 02/02/2021, 01/12/2021 Alcohol/Substance Use Screening 08/31/2024 Depression Screening and Follow-Up 08/31/2024 Social Drivers of Health Mary ual Screening 08/31/2024 RSV Vaccine (60+ years old a nd patients) (1 - 1-dose 75+ series) 2043 Influenza Vaccine Completed 07/05/2024, , 08/15/2021, Additional history exists Insurance [facility] Care Teams Repack Room Worker Relationship Specialty Start Date End Date Mao Sánchez [address] [place] [address] [place] [address] PCP - General Internal Medicine 09/14/24
--- OUTSIDE RECORDS SUMMARY | 2024-11-21 18:55 | XMS_ITS | Referral Summary ---
Author Organization [facility] Address [address] [place] [address] Care Team Providers Care Cylinder Grinder Name Role Phone GonzaloMao Duc Primary Care Provider [phone] Encounters Date Type Department Care Team Description 09/16/2024 Telephone [facility] [address] [place] [address] Dianna Ragsdale MD Prior Authorization (PA for Botox approved) 09/14/2024 1:45 PM EST Office Visit [facility] [address] [place] [address] Jp Macdonald MD Cervical dystonia (Primary Dx) [...] Mass Index - - Plan of Treatment Not on file [place] [address] [employer] Care Teams Cylinder Grinder Relationship Specialty Start Date End Date Mao Sánchez [address] [place] [address] dr [place]bo [place], [place] [address] PCP - General Internal Medicine 09/14/24
== END 2024-11-21 17:11 | disposition home or self-care (01) ==
LOC: HO.HMCH 16:24
PROVIDERS: PCP Internal Medicine; Visit Provider Internal Medicine
DX: Z00.00 Encounter for general adult medical examination without abnormal findings (principal); E11.65 Type 2 diabetes mellitus with hyperglycemia; I10 Essential (primary) hypertension; E78.00 Pure hypercholesterolemia, unspecified; K21.9 Gastro-esophageal reflux disease without esophagitis; K76.0 Fatty (change of) liver, not elsewhere classified; G24.9 Dystonia, unspecified; D12.6 Benign neoplasm of colon, unspecified

== ENCOUNTER → 2024-11-21 16:23 | Outpatient (BNVA) | payer OTHER, SELFPAY | PROVIDERS: PCP Internal Medicine; Visit Provider Internal Medicine | DX: Z00.00 Encounter for general adult medical examination without abnormal findings (principal); E11.65 Type 2 diabetes mellitus with hyperglycemia; E78.00 Pure hypercholesterolemia, unspecified; I10 Essential (primary) hypertension; K21.9 Gastro-esophageal reflux disease without esophagitis; K76.0 Fatty (change of) liver, not elsewhere classified; G24.9 Dystonia, unspecified; D12.6 Benign neoplasm of colon, unspecified | CPT/HCPCS: 99396 ==

== ENCOUNTER 2025-02-09 12:09 | Outpatient (AMB) | payer OTHER, SELFPAY ==
--- NOTE | 2025-02-09 12:38 | A.OFFVIS_ITS ---
VS Expanded 02/09/25 12:39 Height 5 ft 1 in Weight 161 lb 2.526 oz BMI 30.4 Intake Visit Reasons: T2DM Allergies adhesive tape Allergy (Intermediate, Verified 11/21/24 16:27) Rash Nutrition Presentation Details: PT presents for MNT f/u for T2DM Pt reports working on increasing activity, walking and gardening 3-4 times/wk trying shakes with trent/fruits /water reducing on sugar intake PT reports having 3 meals/d, B:cereal (high sugar) 2% milk fruit L:salad /pasta/chicken D:same as dinner challenges with sweets/pastries, reports reading foods labels and working on reducing sugars Pt reports fasting blood sugar ranges from 120-160s BS Monitoring Most Recent Diabetes Results: Microalb/Creat Ratio TNP 11/18/24 Cholesterol 160 mg/dL (<200) 11/18/24 HDL Cholesterol 68 mg/dL (>40) 11/18/24 Triglycerides 66 mg/dL (<150) 11/18/24 Creatinine 0.59 mg/dL (0.5-1.4) 11/18/24 Blood Urea Nitrogen 13 mg/dL (9-16) 11/18/24 Sodium 140 mmol/L (135-145) 11/18/24 Potassium 4.5 mmol/L (3.3-5.1) 11/18/24 Chloride 106 mmol/L (96-108) 11/18/24 Carbon Dioxide 26 mmol/L (22-29) 11/18/24 Calcium 9.5 mg/dL (8.4-10.2) 11/18/24 AST 25 U/L (5-31) 11/18/24 ALT 29 U/L (0-31) 11/18/24 Total Protein 7.8 g/dL (6.5-8.0) 11/18/24 Albumin 4.3 g/dL (3.5-5.0) 11/18/24 [facility] Medical History (Updated 11/21/24 @ 16:38 by Mao Sánchez MD) Breast cancer screening by mammogram Carpal tunnel syndrome of right wrist RUQ abdominal pain Menopause Menopause Cervical disc disease Alcohol abuse GERD (gastroesophageal reflux disease) Obesity (BMI 30-39.9) Hypercholesterolemia Vitamin D deficiency History of renal calculi Hypertension Type 2 diabetes mellitus with hyperglycemia Benign head tremor Fatty liver Depressed Obesity Diabetes Dystonia Surgical History Hx of colonoscopy S/P Botox injection History of carpal tunnel release History of extraction of renal calculus Family History Father Coronary artery disease Mother Emphysema lung Uterine cancer Paternal Uncle Myocardial infarction Paternal Aunt Breast cancer Myocardial infarction Brother CVA (cerebral vascular accident) Social History Housing: Apartment Alcohol intake: former Patient Tobacco Use Status: Never used Tobacco Tobacco use type: Cigarette e-Cigarette/Vaping Use: Never Used Second Hand Smoke Exposure: No Advance Directives Date on File: 06/04/20 service: No Current occupational status: disabled Current occupation: rt hand Cognitive needs: No Hearing needs: No Vision needs: Yes Assessment & Plan Assessment & Plan (1) Type 2 diabetes mellitus with hyperglycemia: Comment: [facility] Code(s): E11.65 - Type 2 diabetes mellitus with hyperglycemia Category: Medical Qualifiers: Diabetes mellitus residential insulin use: without terminal gauger use Qualified Code(s): E11.65 - Type 2 diabetes mellitus with hyperglycemia Plan: Used wt?: ? 76 ? kg 08/23, 75kg (10/25), 73 kg (02/22) Est kcal as per MSJ: 1639 (40% carb, 30% fat/prot) Est fluid needs: 1900 ml/d (25 ml/kg bw) Rec fiber:? increase to 8-10 g per day and gradually increase to 25 g/d? or? as tolerated? Rec Na: < ? 2000 mg /d Educate patient on:? (R= Reviewed,? V = verbalizes understanding ? N/R= Needs review? ? N/A= not applicable) * Food sources of carbohydrates and serving adequate serving sizes :??R * Difference between complex carbohydrates and simple carbohydrates, role of fiber:??R * Differences between fats (MUFA/PUFA/saturated fats, trans fats) and food sources of various fats:??? R * Food sources of sodium and salt and? healthy modifications for heart health and kidney health: R, V * Vitamins and minerals:? R * How to interpret food labels:? R, V * Healthy Plate method concept:??R, V? * Physical activity: benefits and precaution:? R, V * review BG goal as per ADA (80-130 in the fasting state and 80-180 , 2 hours after a meal) , importance of monitoring bg, importance of glucose control for heart health and overall health * Reduction of sugars/total carb for bg improvement and prevention of cardiovascular disease: R * fiber rich low sugar options : R * Patient Instructions: Continue working on reducing total carb to 45 g at dinner and snack to less than 20 g read the food labels Coding Level of Care Code Nutr Indiv Subseq (85491) Diagnoses Type 2 diabetes mellitus with hyperglycemia, without long-term current use of insulin E11.65 Diabetes mellitus residential insulin use: without terminal gauger use Time Spent (min) 30
[2025-02-09 12:39] VITALS: BMI 30.4
--- OUTSIDE RECORDS SUMMARY | 2025-02-09 14:11 | XMS_ITS | Clinical Summary ---
Author Organization [facility] Address [address] [place] [address] Care Team Providers Care Specialty Department Supervisor Name Role Phone Mao Sánchez Primary Care Provider [phone] Allergies No known active allergies Medications baclofen [...] carbidopa-levod opa (SINEMET) 25-100 mg per tablet TAKE 1/2 HALF TABLET THREE TIMES A WEEK FOR ONE WEEK. IF TOLERATE OK, THEN INCREASE TO 1 TABLET THREE TIMES A DAY 270 tablet 1 12/19/2024 Active Active Problems Problem Noted Date Diagnosed Date Cervical dystonia 09/14/2024 Encounters Date Type Department Care Team Description 12/11/2024 Refill [facility] [address] [place] [id number] Jp Macdonald MD from Last 3 Months Social History Tobacco [...] 07/05/2024, , 08/15/2021, Additional history exists Insurance [facility] Care Teams Specialty Department Supervisor Relationship Specialty Start Date End Date Mao Sánchez [address] [facility] [place] [address] PCP - General Internal Medicine 09/14/24
== END 2025-02-09 13:04 | disposition home or self-care (01) ==
LOC: HO.ENCR 12:10
PROVIDERS: PCP Internal Medicine; Visit Provider Dietitian, Registered
DX: E11.65 Type 2 diabetes mellitus with hyperglycemia (principal)

== ENCOUNTER → 2025-02-09 12:09 | Outpatient (BNVA) | payer OTHER, SELFPAY | PROVIDERS: PCP Internal Medicine; Visit Provider Dietitian, Registered | DX: Z71.3 Dietary counseling and surveillance (principal); E11.65 Type 2 diabetes mellitus with hyperglycemia | CPT/HCPCS: 97803 ==

== ENCOUNTER 2025-02-20 15:51 | Outpatient (AMB) | payer OTHER, SELFPAY ==
--- NOTE | 2025-02-20 15:54 | MHC.PC.OV ---
Vital Signs 02/20/25 15:56 Height 5 ft 1 in Weight 162 lb 2 oz BMI 30.6 BP 112/72 Blood Pressure Location Lt brachial Position Sitting Pulse 86 Pulse Source Pulse Oximeter Temp 97.1 F Temp Source Temporal Artery Scan Pulse Oximetry (%) 98 Oxygen Delivery Method Room Air Intake Visit Reasons: DM Allergies adhesive tape Allergy (Intermediate, Verified 02/20/25 16:00) Rash Tobacco use date assessed: 02/20/25 Dental Screening Dental Screen Date: 02/20/25 Did you have a dental visit in the last 12 months?: Yes Did you have a dental problem in the last 6 months where you did not have access to dental care?: No Was dental information given to patient?: Patient has dentist [facility] Medical History Breast cancer screening by mammogram Carpal tunnel syndrome of right wrist RUQ abdominal pain Menopause Menopause Cervical disc disease Alcohol abuse GERD (gastroesophageal reflux disease) Obesity (BMI 30-39.9) Hypercholesterolemia Vitamin D deficiency History of renal calculi Hypertension Type 2 diabetes mellitus with hyperglycemia Benign head tremor Fatty liver Depressed Obesity Diabetes Dystonia Surgical History Hx of colonoscopy S/P Botox injection History of carpal tunnel release History of extraction of renal calculus Family History Father Coronary artery disease Mother Emphysema lung Uterine cancer Paternal Uncle Myocardial infarction Paternal Aunt Breast cancer Myocardial infarction Brother CVA (cerebral vascular accident) Social History Housing: Apartment Alcohol intake: former Patient Tobacco Use Status: Never used Tobacco e-Cigarette/Vaping Use: Never Used Second Hand Smoke Exposure: No Advance Directives Date on File: 06/04/20 service: No Current occupational status: disabled Current occupation: rt hand Cognitive needs: No Hearing needs: No Vision needs: Yes Questionnaire PHQ-9 Over the last 2 weeks, how often have you been bothered by any of the following problems? 1. Little interest or pleasure in doing things: several days 2. Feeling down, depressed, or hopeless: not at all 3. Trouble falling or staying asleep, or sleeping too much: several days 4. Feeling tired or having little energy: several days 5. Poor appetite or overeating: several days 6. Feeling bad about yourself - or that you are a failure or have let yourself or your family down: not at all 7. Trouble concentrating on things, such as reading the newspaper or watching television: several days 8. Moving or speaking so slowly that other people could have noticed. Or the opposite - being so fidgety or restless that you have been moving around a lot more than usual: not at all 9. Thoughts that you would be better off or of hurting yourself in some way: not at all Total score: 5 Source: Developed by Drs. Pino Mcneill, Joann Ferraro, Law Osborne and colleagues, with an educational jessee from [employer]. Thrive Questionnaire Date Thrive assessed: 11/15/24 I am a: Patient What is your living situation today?: I have a steady place to live Within the past 12 months, did the food you bought not last and you didn't have the money to get more?: Often true Within the past 12 months, did you worry whether your food would run out before you got money to buy more?: Often true Do you have trouble paying for medicines?: No Do you have trouble getting transportation to medical appointments?: No Do you have trouble paying your heating and electricity bill?: Yes Do you have trouble taking care of your child, family member or friend?: No Do you have trouble with day-to-day activities such as bathing, preparing meals, shopping, managing finances, etc.?: No Are you currently unemployed and looking for a job?: No Are you interested in more education?: No THRIVE Score: 3 AUDIT C Alcohol Use Questionnaire (AUDIT-C) 1. How often do you have a drink containing alcohol?: Never 3. How often do you have six or more drinks on one occasion?: Never Total Score: 0 ADRIAN-7 AMB Questionnaire ADRIAN-7 Date ADRIAN - 7 assessed: 09/15/24 Feeling nervous, anxious, or on edge: 0 = Not at all Not being able to stop or control worryin = Several days Worrying too much about different things: 1 = Several days Trouble relaxin = More than half the days Being so restless that it is hard to sit still: 1 = Several days Becoming easily annoyed or irritable: 0 = Not at all Feeling afraid as if something awful might happen: 0 = Not at all Total ADRIAN-7 score (0-4 normal; 5-9 mild; 10-14 moderate; 15-21 severe): 5 Source: Developed by Drs. Pino Mcneill, Joann Ferraro, Law Osborne and colleagues, with an educational jessee from [employer]. Physical exam (Primary Care) Vital Signs: Last Vital Signs Temp 97.1 F 02/20/25 15:56 Pulse 86 02/20/25 15:56 BP 112/72 02/20/25 15:56 Pulse Ox 98 02/20/25 15:56 Oxygen Delivery Method Room Air 02/20/25 15:56 BMI result Body Mass Index 30.6 Tobacco/Smoking Status: Tobacco use Status Tobacco use date assessed 02/20/25 02/20/25 16:02 Patient Tobacco Use Status Never used Tobacco 02/20/25 15:54 Tobacco use type 02/20/25 16:02 e-Cigarette/Vaping Use Never Used 02/20/25 15:54 PHQ-9: PHQ-9 Score PHQ-9: Total score 5 02/20/25 15:54 Thrive Assessment: Date of Thrive Assessment Date Thrive assessed 11/15/24 02/20/25 15:54 Const General: alert; No acute distress Eyes Conjunctivae: conjunctivae normal Resp Auscultation: clear to auscultation bilaterally Cardio Rate: regular rate Rhythm: regular rhythm GI Inspection: Yes normal to inspection Extrem General: Yes normal to inspection and No edema Results AMB Hemoglobin A1c AMB Hemoglobin A1c 6.7 % Last Edit by Tita Whitaker CMA on 02/20/25 16:05 Results Reviewed Results Reviewed: Laboratory Last Values Hgb A1c (Clinic) 6.7 % (4.0-6.0) H 02/20/25 16:02 Coding Level of Care Code Est Pt Level 4 (24624) Complex EM visit Add On G2211 Diagnoses Type 2 diabetes mellitus with hyperglycemia, without long-term current use of insulin E11.65 Diabetes mellitus long wall mining machine tender insulin use: without nursing home use Obesity (BMI 30-39.9) E66.9 Essential hypertension I10 Hypertension type: essential hypertension Hypercholesterolemia E78.00 Gastroesophageal reflux disease without esophagitis K21.9 Esophagitis presence: without esophagitis Dystonia G24.9 Assessment & Plan Assessment & Plan (1) Type 2 diabetes mellitus with hyperglycemia: Comment: [facility] Code(s): E11.65 - Type 2 diabetes mellitus with hyperglycemia Category: Medical Qualifiers: Diabetes mellitus long wall mining machine tender insulin use: without long wall mining machine tender use Qualified Code(s): E11.65 - Type 2 diabetes mellitus with hyperglycemia Plan: Decrease the amount of carbohydrate intake, pasta, bread, rice and potatoes are all sugar and that is aside from all the sweet stuff, remember that fruits are good but they are Sweet also. Hemoglobin A1c goal of less than 6.5. Patient has Jardiance 25 mg once a day glipizide 5 mg once a day metformin a 1000 mg twice a day with tirzepatide 5 mg once a week (2) Obesity (BMI 30-39.9): Code(s): E66.9 - Obesity, unspecified Category: Medical Plan: Diet and exercise (3) Hypertension: Code(s): I10 - Essential (primary) hypertension Category: Medical Qualifiers: Hypertension type: essential hypertension Qualified Code(s): I10 - Essential (primary) hypertension Plan: Continue with blood pressure medication. Decrease salt intake and exercise on propranolol 10 mg twice a day (4) Hypercholesterolemia: Code(s): E78.00 - Pure hypercholesterolemia, unspecified Category: Medical Plan: Avoid fried foods, chicken skin, eggs, butter margarine, pastries and meat. Be it pork or beef they have a lot of cholesterol LDL goal of less than 100 and triglyceride of less than 150 on simvastatin 5 mg once a day (5) GERD (gastroesophageal reflux disease): Code(s): K21.9 - Gastro-esophageal reflux disease without esophagitis Category: Medical Qualifiers: Esophagitis presence: without esophagitis Qualified Code(s): K21.9 - Gastro-esophageal reflux disease without esophagitis Plan: Avoid the foods that causes that usually spicy foods, tomato products, juices, coffee, soda and foods that your sensitive to. After eating do not lie down, allow 3-4 hours before in lie down. And keep the head of bed above 30 degrees to avoid the acid from going up. (6) Dystonia: Comment: Cervical, Sees Dr Siegel in [place] Code(s): G24.9 - Dystonia, unspecified Category: Medical Plan: Continue to follow-up in [place], presently on carbidopa levodopa Plan History of Present Illness The patient is a 54-year-old female presenting for a follow-up visit and management of chronic conditions. The patient has a history of diabetes mellitus, with a hemoglobin A1c of 7.2% noted in October 2020. She is currently on a regimen including Jardiance, glipizide, metformin, and Tirzepatide, with a goal to reduce her A1c to below 6.5%. The patient has been advised to monitor her weight and report any lack of weight loss after three weeks of medication adjustment. The patient also has hypertension, managed with propranolol. Hypercholesterolemia is being managed with simvastatin, with a target LDL of less than 100 mg/dL and triglycerides less than 150 mg/dL. The patient has a history of gastroesophageal reflux disease (GERD) and continues to follow up with her faculty neuropsychologist. A tubular adenoma of the colon was identified, and a repeat colonoscopy is scheduled for March 01, 2025. The patient has dry eye syndrome and early cataracts, with no ocular complications noted during her last ophthalmology exam. Health Maintenance - Colonoscopy scheduled for March 01, 2025, for surveillance of tubular adenoma - Ophthalmology exam up to date, monitoring for cataracts and dry eye syndrome - Discussion on shingles vaccination for prevention of herpes zoster Social History Review of Systems Physical Exam Results - Labs: Hemoglobin A1c was 7.2% in October 2020 - Labs: Normal blood count and electrolytes in October 2020 Plan The patient's diabetes management includes a regimen of Jardiance, glipizide, metformin, and Tirzepatide, with an aim to reduce her hemoglobin A1c to below 6.5%. The dose of Tirzepatide will be increased to 7.5 mg to aid in weight loss and better glycemic control. Hypertension is managed with propranolol, and hypercholesterolemia is treated with simvastatin, targeting an LDL of less than 100 mg/dL and triglycerides below 150 mg/dL. The patient is advised to continue follow-up with her faculty neuropsychologist for GERD management and to undergo a scheduled colonoscopy for surveillance of tubular adenoma. For her ocular health, the patient is advised to maintain regular ophthalmology visits to monitor dry eye syndrome and cataracts. A discussion on the shingles vaccine was conducted, emphasizing its role in preventing herpes zoster, and the patient is encouraged to verify coverage with her insurance. Patient was informed and verbally consented to the use of an ambient scribe for clinic note documentation during this visit. Discussion Notes During the visit, we discussed the management of the patient's diabetes, including the current medication regimen and the plan to increase the dose of Tirzepatide to improve glycemic control and facilitate weight loss. We also reviewed the management of her hypertension and hypercholesterolemia, emphasizing the importance of maintaining target lipid levels. The need for a follow-up colonoscopy was reiterated, and the patient was advised to continue her gastroenterology care for GERD. We discussed the importance of regular ophthalmology exams to monitor her dry eye syndrome and cataracts. Additionally, we talked about the shingles vaccine, its benefits, and the need to check insurance coverage for it. Patient Instructions - Continue current diabetes medications and monitor weight regularly. - Increase Tirzepatide dose to 7.5 mg as prescribed. - Follow up with faculty neuropsychologist and attend scheduled colonoscopy. - Maintain regular ophthalmology appointments for eye health monitoring. - Consider getting the shingles vaccine and check with insurance for coverage. Orders: Orders AMB Hemoglobin A1c Today Z13.9 - Encounter for screening, unspecified Medications: Changed From tirzepatide for 4 weeks 5 mg (0.5 mL) subcut QWEEK 30 days 2.5 mL 2RF E11.65 - Type 2 diabetes mellitus with hyperglycemia To tirzepatide for 4 weeks 7.5 mg (0.5 mL) subcut QWEEK 2.5 mL 2RF 30 days E11.65 - Type 2 diabetes mellitus with hyperglycemia
[2025-02-20 15:56] VITALS: BP 112/72; PULSE 86; TEMP 36.2; O2SAT 98; BMI 30.6
--- OUTSIDE RECORDS SUMMARY | 2025-02-20 17:19 | XMS_ITS | Clinical Summary ---
Author Organization [facility] Address [address] [place] [address] Care Team Providers Care Single Needle Operator Name Role Phone Mao Sánchez Primary Care Provider Allergies No known active allergies Medications baclofen [...] Type Department Care Team Description 12/11/2024 Refill [facility] [address] [place] [address] Jp Macdonald MD from Last 3 [...] 96 09/14/2024 2:08 PM EST Temperature 36.3 C (97.4 F) 09/14/2024 2:06 PM EST Respiratory Rate 20 09/14/2024 2:06 PM EST [...] 07/05/2024, , 08/15/2021, Additional history exists Insurance [facility] Care Teams Single Needle Operator Relationship Specialty Start Date End Date Mao Sánchez [address] [facility] [place] [address] PCP - General Internal Medicine 09/14/24
== END 2025-02-20 16:19 | disposition home or self-care (01) ==
LOC: HO.HMCH 15:52
PROVIDERS: PCP Internal Medicine; Visit Provider Internal Medicine
DX: E11.65 Type 2 diabetes mellitus with hyperglycemia (principal); E66.9 Obesity, unspecified; Z68.30 Body mass index [BMI] 30.0-30.9, adult; I10 Essential (primary) hypertension; E78.00 Pure hypercholesterolemia, unspecified; K21.9 Gastro-esophageal reflux disease without esophagitis; G24.9 Dystonia, unspecified

== ENCOUNTER → 2025-02-20 15:51 | Outpatient (BNVA) | payer OTHER, SELFPAY | PROVIDERS: PCP Internal Medicine; Visit Provider Internal Medicine | DX: E11.65 Type 2 diabetes mellitus with hyperglycemia (principal); E66.9 Obesity, unspecified; I10 Essential (primary) hypertension; E78.00 Pure hypercholesterolemia, unspecified; K21.9 Gastro-esophageal reflux disease without esophagitis; G24.9 Dystonia, unspecified | CPT/HCPCS: 83036; 96127; 99212 ==

== ENCOUNTER 2025-03-01 13:55 | Outpatient (AMB) | payer OTHER, SELFPAY ==
--- NOTE | 2025-03-01 13:59 | A.OFFVIS_ITS ---
Vital Signs 03/01/25 14:10 Height 5 ft 1 in Weight 161 lb BMI 30.4 BP 118/66 Blood Pressure Location Lt brachial Position Sitting Pulse 79 Pulse Oximetry (%) 99 Oxygen Delivery Method Room Air Intake Visit Reasons: colo screening Intake Note: patient new consult for pre Colonoscopy screening. Patient denies any GI issues for today. Research Geneticist Required: No Accompanied by: Self / Same As Patient Allergies adhesive tape Allergy (Intermediate, Verified 03/01/25 14:09) Rash HPI HPI colo screening: Details: 54-YEAR-OLD FEMALE HERE for preprocedural meeting to discuss a screening colonoscopy. She is referred by Mao Sánchez. PMX Obesity Hypertension High cholesterol Diabetes DIAS History of alcohol abuse GERD Nephrolithiasis Carpal tunnel syndrome Cervical degenerative disc disease Cervical dystonia History of tubulovillous adenoma-2019 colonoscopy; repeat colonoscopy 2020 equaled 1 TA-Walker * SURGICAL HISTORY Colonoscopy-2019; 2020 Walker tva/TA Carpal tunnel release left Lithotripsy Botox injections * ALLERGIES Adhesive tape * [facility] LABS: Laboratory Tests 11/18/24 15:16 WBC 6.7 Hgb 13.6 Hct 42.0 Plt Count 254 Estimated GFR > 60 Total Bilirubin 0.6 AST 25 ALT 29 Alkaline Phosphatase 70 TSH 0.98 Free T4 1.20 TODAY'S VISIT This is her 3rd or so colonoscopy, she has a hx of TVA. She denies any cardiac or respiratory problems. No bowel or upper GI problems. No prior anes or sed problems NO ID problems. [facility] Medical History (Updated 03/01/25 @ 14:01 by PAIGE Razo) Diverticulosis Annual physical exam Annual physical exam Breast cancer screening by mammogram Carpal tunnel syndrome of right wrist RUQ abdominal pain Menopause Menopause Cervical disc disease Alcohol abuse GERD (gastroesophageal reflux disease) Obesity (BMI 30-39.9) Hypercholesterolemia Vitamin D deficiency History of renal calculi Hypertension Type 2 diabetes mellitus with hyperglycemia Benign head tremor Fatty liver Depressed Obesity Diabetes Dystonia Surgical History Hx of colonoscopy S/P Botox injection History of carpal tunnel release History of extraction of renal calculus Family History Father Coronary artery disease Mother Emphysema lung Uterine cancer Paternal Uncle Myocardial infarction Paternal Aunt Breast cancer Myocardial infarction Brother CVA (cerebral vascular accident) Social History Housing: Apartment Alcohol intake: former Patient Tobacco Use Status: Never used Tobacco e-Cigarette/Vaping Use: Never Used Second Hand Smoke Exposure: No Advance Directives Date on File: 06/04/20 service: No Current occupational status: disabled Current occupation: rt hand Cognitive needs: No Hearing needs: No Vision needs: Yes Review of Systems Const Denies fatigue, Denies fever(s), Denies night sweats, Denies poor appetite and Denies weight loss Eyes Details: GLASSES Reports requires corrective lenses ENT Reports Normal hearing present, Denies dental pain, Denies dysphagia, Denies hearing loss, Denies mouth pain, Denies odynophagia, Denies throat swelling, Denies tongue swelling and Reports other (Dentition adequate) Card Reports no additional complaints Resp Reports no additional complaints GI Details: Denies abdominal pain, Denies melena, Denies bloating, Denies hematochezia, Denies constipation, Denies GI cramping, Denies dysphagia, Denies excessive flatus, Denies early satiety, Denies heartburn, Denies diarrhea, Denies nausea, Denies odynophagia, Denies vomiting and Denies hematemesis Skin/Breast Denies pruritus, Denies lesions, Denies rash and Denies jaundice Neuro Reports Normal hearing present and Denies Abnormal speech present Endo Denies fatigue Aller/Immun Denies throat swelling and Denies tongue swelling Physical Exam Vital Signs: Last Vital Signs Pulse 79 03/01/25 14:10 BP 118/66 03/01/25 14:10 Pulse Ox 99 03/01/25 14:10 Oxygen Delivery Method Room Air 03/01/25 14:10 BMI result Body Mass Index 30.4 Const General: cooperative, no acute distress, well developed and well groomed Nutritional Appearance: well nourished and obese Orientation/consciousness: oriented to person, oriented to place and oriented to time Limitations: No language barrier HEENT Head: Yes normocephalic and Yes atraumatic Eyes General: appearance normal, both eyes and all related structures Pupils: Equal, round and reactive pupils present Neck Neck: Yes normal visual inspection and Yes no lymphadenopathy Thyroid: Thyroid normal Resp Effort & Inspection: normal respiratory effort and able to speak in complete sentences Auscultation: clear to auscultation bilaterally Cardio Rate: regular rate Rhythm: regular rhythm Heart sounds: Normal, physiologic split S2 sound present Peripheral pulses: radial pulses present and posterior tibial pulses present GI Inspection: No distended, Yes Abdominal panniculus present and Yes obesity Palpation (GI): Soft to palpation, nontender, no guarding, not rigid and No hepatosplenomegaly present Percussion: Yes normal to percussion Auscultation: normal bowel sounds Rectal Exam - Female: deferred Skin General skin exam: no rashes or lesions noted, turgor normal, skin not dry, no jaundice, No spider nevi and no striae Rashes: no rashes Nails: normal Neuro General: oriented to person, oriented to place and oriented to time Cranial nerves: Yes Equal, round and reactive pupils present and Yes Normal hearing present Speech: No Abnormal speech present Extrem General: Yes normal to inspection, No clubbing, No cyanosis and No edema Psych Appearance: grossly normal and well kempt Mental Status: mental status grossly normal Speech and movement: Normal speech and movement present Affect: normal affect Attitude: cooperative Thought process: Normal thought process present and not confabulating Thought content: Normal thought content present Insight: Fair insight present (Psych) Judgement: Fair judgement present (Psych) Assessment & Plan Assessment & Plan (1) Pre-op examination: Code(s): Z01.818 - Encounter for other preprocedural examination Category: Medical (2) Tubulovillous adenoma of colon: Comment: 08/19 3.5 - 4 cms TVA with focal HGD in the sigmoid colon Code(s): D12.6 - Benign neoplasm of colon, unspecified Category: Medical Plan This is her 3rd or so colonoscopy, she has a hx of TVA. She denies any cardiac or respiratory problems. No bowel or upper GI problems. No prior anes or sed problems NO ID problems. Orders: Orders Colonoscopy - GI Use Only Today Z01.818 - Encounter for other preprocedural examination Medications: New bisacodyl (Dulcolax (bisacodyl)) 10 mg (2 x 5 mg) PO BEDTIME 4 tabs 0RF 2 days peg 3350-electrolytes 236-22.74-6.74 -5.86 gram (Golytely) until fecal effluent is clear; do not exceed a total volume of 2,000 mL 240 mL PO Q10M 4,000 mL 0RF 1 day Z12.11 - Encounter for screening for malignant neoplasm of colon Coding Level of Care Code New Pt Level 3 (57078) Diagnoses Pre-op examination Z01.818 Tubulovillous adenoma of colon D12.6
[2025-03-01 14:10] VITALS: BP 118/66; PULSE 79; O2SAT 99; BMI 30.4
--- OUTSIDE RECORDS SUMMARY | 2025-03-01 14:30 | XMS_ITS | Clinical Summary ---
Author Organization [facility] Address [address] [place] [address] Care Team Providers Care Diesel Locomotive Crane Operator Name Role Phone Mao Sánchez Primary Care Provider [phone] Allergies No known active allergies Medications baclofen [...] Type Department Care Team Description 12/11/2024 Refill [facility] [address] [place] [address] Jp Macdonald MD from Last 3 [...] D[employer] of Health Mary ual Screening 08/31/2024 Influenza Vaccine (#1) 2025 4, 10/28/2022, 08/15/2021, Additional history exists RSV Vaccine (60+ years old a nd patients) (1 - 1-dose 75+ series) 2043 Insurance [facility] Care Teams Diesel Locomotive Crane Operator Relationship Specialty Start Date End Date Mao Sánchez [address] [place] [address] dr [place] [place], [place] [address] PCP - General Internal Medicine 09/14/24
== END 2025-03-01 14:37 | disposition home or self-care (01) ==
LOC: HO.HGI 13:55
PROVIDERS: PCP Internal Medicine; Visit Provider Nurse Practitioner
DX: Z86.0101 Personal history of adenomatous and serrated colon polyps (principal); Z01.818 Encounter for other preprocedural examination; Z12.11 Encounter for screening for malignant neoplasm of colon
CPT/HCPCS: 99203

== ENCOUNTER → 2025-03-01 13:55 | Outpatient (BNVA) | payer OTHER, SELFPAY | PROVIDERS: PCP Internal Medicine; Visit Provider Nurse Practitioner | DX: Z01.818 Encounter for other preprocedural examination (principal); D12.6 Benign neoplasm of colon, unspecified | CPT/HCPCS: 99202 ==

== ENCOUNTER 2025-05-18 12:44 | Outpatient (AMB) | payer OTHER, SELFPAY ==
[2025-05-18 13:02] VITALS: BMI 29.4
--- NOTE | 2025-05-18 13:02 | MHC.AMNUTRGE ---
VS Expanded 05/18/25 13:02 Height 5 ft 1 in Weight 155 lb 6.814 oz BMI 29.4 Intake Visit Reasons: T2DM Allergies adhesive tape Allergy (Intermediate, Verified 03/01/25 14:09) Rash Nutrition Presentation Details: Pt presents for MNT f/u for T2DM Pt reports doing well, working on reducing sugar more consistently and increasing on fresh veg due to seasoning takes a daily multivitamin walks the dog 1x/day, 10 min has bike peddler at home and uses it 3 times/wk fluids: water 2x/d, no milk , no tea/or other beverages BS Monitoring Most Recent Diabetes Results: Microalb/Creat Ratio TNP 11/18/24 Cholesterol, (<200) 160 mg/dL 11/18/24 HDL Cholesterol, (>40) 68 mg/dL 11/18/24 Triglycerides, (<150) 66 mg/dL 11/18/24 Creatinine, (0.5-1.4) 0.59 mg/dL 11/18/24 BUN, (9-16) 13 mg/dL 11/18/24 Sodium, (135-145) 140 mmol/L 11/18/24 Potassium, (3.3-5.1) 4.5 mmol/L 11/18/24 Chloride, (96-108) 106 mmol/L 11/18/24 Carbon Dioxide, (22-29) 26 mmol/L 11/18/24 Calcium, (8.4-10.2) 9.5 mg/dL 11/18/24 AST, (5-31) 25 U/L 11/18/24 ALT, (0-31) 29 U/L 11/18/24 Total Protein, (6.5-8.0) 7.8 g/dL 11/18/24 Albumin, (3.5-5.0) 4.3 g/dL 11/18/24 [facility] Medical History (Updated 05/24/25 @ 14:[address], LDN) Diverticulosis Annual physical exam Annual physical exam Breast cancer screening by mammogram Carpal tunnel syndrome of right wrist RUQ abdominal pain Menopause Menopause Cervical disc disease Alcohol abuse GERD (gastroesophageal reflux disease) Obesity (BMI 30-39.9) Hypercholesterolemia Vitamin D deficiency History of renal calculi Hypertension Type 2 diabetes mellitus with hyperglycemia Benign head tremor Fatty liver Depressed Obesity Diabetes Dystonia Surgical History Hx of colonoscopy S/P Botox injection History of carpal tunnel release History of extraction of renal calculus Family History Father Coronary artery disease Mother Emphysema lung Uterine cancer Paternal Uncle Myocardial infarction Paternal Aunt Breast cancer Myocardial infarction Brother CVA (cerebral vascular accident) Social History Housing: Apartment Alcohol intake: former Patient Tobacco Use Status: Never used Tobacco e-Cigarette/Vaping Use: Never Used Second Hand Smoke Exposure: No Advance Directives Date on File: 06/04/20 service: No Current occupational status: disabled Current occupation: rt hand Cognitive needs: No Hearing needs: No Vision needs: Yes Assessment & Plan Assessment & Plan (1) Type 2 diabetes mellitus with hyperglycemia: Code(s): E11.65 - Type 2 diabetes mellitus with hyperglycemia Category: Medical Qualifiers: Diabetes mellitus terminal superintendent insulin use: without [place] [facility] use Qualified Code(s): E11.65 - Type 2 diabetes mellitus with hyperglycemia Plan: Used wt?: ? 76 ? kg 08/23, 75kg (10/25), 73 kg (02/22), 70 kg (05/25) Est kcal as per MSJ: 1639 (40% carb, 30% fat/prot) Est fluid needs: 1900 ml/d (25 ml/kg bw) Rec fiber:? increase to 8-10 g per day and gradually increase to 25 g/d? or? as tolerated? Rec Na: < ? 2000 mg /d Educate patient on:? (R= Reviewed,? V = verbalizes understanding ? N/R= Needs review? ? N/A= not applicable) Food sources of carbohydrates and serving adequate serving sizes :??R Difference between complex carbohydrates and simple carbohydrates, role of fiber:??R Differences between fats (MUFA/PUFA/saturated fats, trans fats) and food sources of various fats:??? R Food sources of sodium and salt and? healthy modifications for heart health and kidney health: R, V Vitamins and minerals:? R How to interpret food labels:? R, V Healthy Plate method concept:??R, V? Physical activity: benefits and precaution:? R, V review BG goal as per ADA (80-130 in the fasting state and 80-180 , 2 hours after a meal) , importance of monitoring bg, importance of glucose control for heart health and overall health Reduction of sugars/total carb for bg improvement and prevention of cardiovascular disease: R fiber rich low sugar options : R Patient Instructions: Keep hydrated, have 8-10 cups of water, low sugar fluids daily caution with low blood sugar , follow rule of 15 if developing low sugar and notify your doctor for further asessment Coding Level of Care Code Nutr Indiv Subseq (11063) Diagnoses Type 2 diabetes mellitus with hyperglycemia, without long-term current use of insulin E11.65 Diabetes mellitus [place] [facility] insulin use: without terminal superintendent use
--- OUTSIDE RECORDS SUMMARY | 2025-05-18 14:49 | XMS_ITS | Clinical Summary ---
Author Organization [facility] Address [address] [place] [address] Care Team Providers Care Liquor Maker Name Role Phone GonzaloMao Duc Primary Care Provider [phone] Allergies No known active allergies Medications baclofen [...] 05/17/2014 Zoster Vaccines (1 of 2) 2018 Alcohol/Substance Use Screening 08/31/2024 Depression Screening and Follow-Up 08/31/2024 Social Drivers of Health Mary ual Screening 08/31/2024 COVID-19 Vaccine (3 - 2024-2 6 season) 2025 02/02/2021, 01/12/2021 Influenza Vaccine (#1) 2025 , 10/28/2022, 08/15/2021, Additional history exists RSV Vaccine (60+ years old a nd patients) (1 - 1-dose 75+ series) 2043 Insurance [facility] Care Teams Liquor Maker Relationship Specialty Start Date End Date Mao Sánchez [address] [place] [address] dr Jimbo Choi, [place] [address] PCP - General Internal Medicine 09/14/24
== END 2025-05-18 13:38 | disposition home or self-care (01) ==
LOC: HO.ENCR 12:45
PROVIDERS: PCP Internal Medicine; Visit Provider Dietitian, Registered
DX: E11.65 Type 2 diabetes mellitus with hyperglycemia (principal)

== ENCOUNTER → 2025-05-18 12:44 | Outpatient (BNVA) | payer OTHER, SELFPAY | PROVIDERS: PCP Internal Medicine; Visit Provider Dietitian, Registered | DX: E11.65 Type 2 diabetes mellitus with hyperglycemia (principal); Z71.3 Dietary counseling and surveillance | CPT/HCPCS: 97803 ==

== ENCOUNTER 2025-06-12 15:37 | Outpatient (AMB) | payer OTHER, SELFPAY ==
--- OUTSIDE RECORDS SUMMARY | 2025-06-12 15:41 | XMS_ITS | Clinical Summary ---
Author Organization [facility] Address [address] [place] [address] Care Team Providers Care Management Manager Name Role Phone GonzaloMao Duc Primary Care Provider [phone] Allergies No known active allergies Medications baclofen [...] (1 - 1-dose 75+ series) 2043 Insurance [facility] Care Teams Management Manager Relationship Specialty Start Date End Date Mao Sánchez [address] [place] [address] dr Jimbo Choi, [place] [id number] PCP - General Internal Medicine 09/14/24
[2025-06-12 15:42] VITALS: BP 134/72; PULSE 70; O2SAT 98; BMI 29.1
--- NOTE | 2025-06-12 15:42 | A.OFFPC_ITS ---
Vital Signs 06/12/25 15:42 Height 5 ft 1 in Weight 154 lb BMI 29.1 BP 134/72 Blood Pressure Location Lt brachial Position Sitting Pulse 70 Pulse Source Pulse Oximeter Pulse Oximetry (%) 98 Oxygen Delivery Method Room Air Intake Visit Reasons: 3 MO FOLLOW UP DM Allergies adhesive tape Allergy (Intermediate, Verified 06/12/25 15:43) Rash Tobacco use date assessed: 02/20/25 Dental Screening Dental Screen Date: 02/20/25 [facility] Medical History (Updated 05/24/25 @ 14:17 by Rosa Maria Stevens, RD, LDN) Diverticulosis Annual physical exam Annual physical exam Breast cancer screening by mammogram Carpal tunnel syndrome of right wrist RUQ abdominal pain Menopause Menopause Cervical disc disease Alcohol abuse GERD (gastroesophageal reflux disease) Obesity (BMI 30-39.9) Hypercholesterolemia Vitamin D deficiency History of renal calculi Hypertension Type 2 diabetes mellitus with hyperglycemia Benign head tremor Fatty liver Depressed Obesity Diabetes Dystonia Surgical History Hx of colonoscopy S/P Botox injection History of carpal tunnel release History of extraction of renal calculus Family History Father Coronary artery disease Mother Emphysema lung Uterine cancer Paternal Uncle Myocardial infarction Paternal Aunt Breast cancer Myocardial infarction Brother CVA (cerebral vascular accident) Social History Housing: Apartment Alcohol intake: former Patient Tobacco Use Status: Never used Tobacco Tobacco use type: Cigarette e-Cigarette/Vaping Use: Never Used Second Hand Smoke Exposure: No Advance Directives Date on File: 06/04/20 service: No Current occupational status: disabled Current occupation: rt hand Cognitive needs: No Hearing needs: No Vision needs: Yes Questionnaire Thrive Questionnaire Date Thrive assessed: 11/15/24 I am a: Patient What is your living situation today?: I have a steady place to live Within the past 12 months, did the food you bought not last and you didn't have the money to get more?: Often true Within the past 12 months, did you worry whether your food would run out before you got money to buy more?: Often true Do you have trouble paying for medicines?: No Do you have trouble getting transportation to medical appointments?: No Do you have trouble paying your heating and electricity bill?: Yes Do you have trouble taking care of your child, family member or friend?: No Do you have trouble with day-to-day activities such as bathing, preparing meals, shopping, managing finances, etc.?: No Are you currently unemployed and looking for a job?: No Are you interested in more education?: No THRIVE Score: 3 ADRIAN-7 AMB Questionnaire ADRIAN-7 Date ADRIAN - 7 assessed: 09/15/24 Source: Developed by Drs. Pino Mcneill, Joann Ferraro, Law Osborne and colleagues, with an educational jessee from [employer]. Physical exam (Primary Care) Vital Signs: Last Vital Signs Pulse 70 06/12/25 15:42 BP 134/72 06/12/25 15:42 Pulse Ox 98 06/12/25 15:42 Oxygen Delivery Method Room Air 06/12/25 15:42 BMI result Body Mass Index 29.1 Tobacco/Smoking Status: Tobacco use Status Tobacco use date assessed 02/20/25 06/12/25 15:43 Patient Tobacco Use Status Never used Tobacco 06/12/25 15:43 Tobacco use type Cigarette 06/12/25 15:43 e-Cigarette/Vaping Use Never Used 06/12/25 15:43 Thrive Assessment: Date of Thrive Assessment Date Thrive assessed 11/15/24 06/12/25 15:43 Const General: alert; No acute distress Eyes Conjunctivae: conjunctivae normal Resp Auscultation: clear to auscultation bilaterally Cardio Rate: regular rate Rhythm: regular rhythm GI Inspection: Yes normal to inspection Extrem General: Yes normal to inspection and No edema Office Procedures Flu Questionnaire Does the patient have a severe egg allergy?: No Does the patient have severe life threatening allergies?: No Does the patient have a fever or illness today?: No Has the patient ever had Guillain-[place] Syndrome?: No Has the patient ever had any past reaction to a flu shot?: No Results AMB Hemoglobin A1c AMB Hemoglobin A1c 6.0 % Last Edit by Dunia Fontanez CMA on 06/12/25 15 :58 Immunizations Fluarix [id number] (PF) 45 mcg (15 mcg x 3)/0.5 mL IM syringe Performing Provider: Mao Sánchez MD Performing Location: [facility] Administered by: Dunia Fontanez CMA on 06/12/25 16:11 Dose Route Admin Location Dispensed Lot Number Expiration Date NDC [employer] Professional 0.5 mL IM Left Deltoid 0.5 mL [id number] 02/27/26 14926-148-67 [employer] VIS Given Date VIS Provided VIS Publication Date 06/12/25 Single Vaccine 24 Eligibility Eligibility Date Funding Source Not [facility] Eligible 06/12/25 Private Results Reviewed Results Reviewed: Laboratory Last Values Hgb A1c (Clinic) 6.0 % (4.0-6.0) 06/12/25 15:43 Coding Level of Care Code Est Pt Level 4 (57196) Complex EM visit Add On G2211 Diagnoses Type 2 diabetes mellitus with hyperglycemia, without long-term current use of insulin E11.65 Diabetes mellitus intermediate project manager insulin use: without skilled nursing use Essential hypertension I10 Hypertension type: essential hypertension Hypercholesterolemia E78.00 Gastroesophageal reflux disease without esophagitis K21.9 Esophagitis presence: without esophagitis Fatty liver K76.0 Tubulovillous adenoma of colon D12.6 Dystonia G24.9 Assessment & Plan Assessment & Plan (1) Type 2 diabetes mellitus with hyperglycemia: Code(s): E11.65 - Type 2 diabetes mellitus with hyperglycemia Category: Medical Qualifiers: Diabetes mellitus skilled nursing insulin use: without skilled nursing use Qualified Code(s): E11.65 - Type 2 diabetes mellitus with hyperglycemia Plan: Decrease the amount of carbohydrate intake, pasta, bread, rice and potatoes are all sugar and that is aside from all the sweet stuff, remember that fruits are good but they are Sweet also. Hemoglobin A1c goal of less than 6.5. Patient is on Jardiance 25 mg once a day glipizide 5 mg once a day metformin a 1000 mg twice a day and tirzepatide at 7.5 mg once a week (2) Hypertension: Code(s): I10 - Essential (primary) hypertension Category: Medical Qualifiers: Hypertension type: essential hypertension Qualified Code(s): I10 - Essential (primary) hypertension Plan: Continue with blood pressure medication. Decrease salt intake and exercise on propranolol 10 mg twice a day (3) Hypercholesterolemia: Code(s): E78.00 - Pure hypercholesterolemia, unspecified Category: Medical Plan: Avoid fried foods, chicken skin, eggs, butter margarine, pastries and meat. Be it pork or beef they have a lot of cholesterol LDL goal of less than 100 and triglyceride of less than 150 October 2024 last blood work on simvastatin 5 mg once a day (4) GERD (gastroesophageal reflux disease): Code(s): K21.9 - Gastro-esophageal reflux disease without esophagitis Category: Medical Qualifiers: Esophagitis presence: without esophagitis Qualified Code(s): K21.9 - Gastro-esophageal reflux disease without esophagitis Plan: Avoid the foods that causes that usually spicy foods, tomato products, juices, coffee, soda and foods that your sensitive to. After eating do not lie down, allow 3-4 hours before in lie down. And keep the head of bed above 30 degrees to avoid the acid from going up. (5) Fatty liver: Comment: a 50-year-old overweight, diabetic female with past history of alcohol use follows up after recent ultrasound. Ultrasound does reveal hepatic steatosis, no lesions. Liver enzymes were normal AST/ALT . Code(s): K76.0 - Fatty (change of) liver, not elsewhere classified Category: Medical Plan: Low-fat diet and exercise (6) Tubulovillous adenoma of colon: Comment: 08/19 3.5 - 4 cms TVA with focal HGD in the sigmoid colon Code(s): D12.6 - Benign neoplasm of colon, unspecified Category: Medical Plan: Patient has met the proof technician and planned colonoscopy (7) Dystonia: Comment: Cervical, Sees Dr Siegel in [place] Code(s): G24.9 - Dystonia, unspecified Category: Medical Plan: Continue with present medication and follow-up Neurology Plan History of Present Illness The patient is a 55-year-old female presenting for a follow-up visit. She has a history of diabetes mellitus, hypertension, hypercholesterolemia, and hepatic steatosis. Her diabetes management includes a regimen of Jardiance, glipizide, metformin, and tirzepatide, with a hemoglobin A1c goal of less than 6.5%. Her last A1c was 6.0, showing improvement from previous values of 7.2 and 6.7. For hypertension, she is on propranolol 10 mg twice a day. Her cholesterol management includes simvastatin with an LDL goal of less than 100 mg/dL. She has a history of a tubular adenoma of the colon, with her last colonoscopy in 2020, and she is due for another this year. She follows up with gastroenterology for scheduling the procedure. Her last blood work in October showed normal blood count, electrolytes, renal function, and an LDL of 79 mg/dL. The patient reports no issues with bowel movements or urination and denies any sweating. She is considering a flu shot today and has discussed the shingles vaccine, which she plans to skip this year. Health Maintenance - Colonoscopy due this year - Mammogram up to date - Considering flu vaccination today - Discussed shingles vaccination, plans to skip this year Social History Review of Systems - Gastrointestinal: Denies constipation or diarrhea - Genitourinary: Denies dysuria or urinary frequency - General: Denies sweating Physical Exam Results - Labs: Normal blood count, normal electrolytes, normal renal function, LDL 79 mg/dL (October) Plan Patient was informed and verbally consented to the use of an ambient scribe for clinic note documentation during this visit. 1. Diabetes Mellitus The patient's diabetes management includes Jardiance, glipizide, metformin, and tirzepatide, with a hemoglobin A1c goal of less than 6.5%. Her last A1c was 6.0, showing improvement from previous values of 7.2 and 6.7. The plan includes monitoring blood glucose levels and adjusting medications as needed, with a specific note to discontinue glipizide if blood sugars drop below 100 mg/dL. 2. Hypertension The patient is currently on propranolol 10 mg twice a day for hypertension management. 3. Hypercholesterolemia The patient is on simvastatin with an LDL goal of less than 100 mg/dL. 4. Hepatic Steatosis The patient has a history of hepatic steatosis, but no specific management plan was discussed during this visit. 5. Tubular Adenoma Of The Colon The patient has a history of tubular adenoma of the colon, with her last colonoscopy in 2020, and she is due for another this year. She follows up with gastroenterology for scheduling the procedure. Discussion Notes During the visit, we discussed the patient's diabetes management, emphasizing the importance of monitoring blood glucose levels and adjusting medications as needed. We also reviewed her hypertension and hypercholesterolemia management plans, ensuring she is on the appropriate medications. The need for a follow-up colonoscopy was highlighted, and arrangements with gastroenterology were confirmed. Patient Instructions - Monitor blood glucose levels regularly and report any significant changes. - Discontinue glipizide if blood sugars drop below 100 mg/dL. - Continue current medications for hypertension and hypercholesterolemia. - Schedule and attend the follow-up colonoscopy. - Consider receiving the flu shot today. Orders: Orders Influenza [id number] Immunization Today Z23 - Encounter for immunization AMB Hemoglobin A1c Today Z13.9 - Encounter for screening, unspecified Medications: Changed From tirzepatide for 4 weeks 7.5 mg (0.5 mL) subcut QWEEK 30 days 2.5 mL 2RF E11.65 - Type 2 diabetes mellitus with hyperglycemia To tirzepatide for 4 weeks 10 mg (0.5 mL) subcut QWEEK 2.5 mL 2RF 30 days E11.65 - Type 2 diabetes mellitus with hyperglycemia Refilled empagliflozin 25 mg PO DAILY 90 tabs 2RF 90 days E11.65 - Type 2 diabetes mellitus with hyperglycemia
== END 2025-06-12 16:17 | disposition home or self-care (01) ==
LOC: HO.HMCH 15:38
PROVIDERS: PCP Internal Medicine; Visit Provider Internal Medicine
DX: E11.65 Type 2 diabetes mellitus with hyperglycemia (principal); I10 Essential (primary) hypertension; E78.00 Pure hypercholesterolemia, unspecified; K21.9 Gastro-esophageal reflux disease without esophagitis; K76.0 Fatty (change of) liver, not elsewhere classified; D12.6 Benign neoplasm of colon, unspecified; G24.9 Dystonia, unspecified; Z23 Encounter for immunization; Z13.9 Encounter for screening, unspecified

== ENCOUNTER → 2025-06-12 15:37 | Outpatient (BNVA) | payer OTHER, SELFPAY | PROVIDERS: PCP Internal Medicine; Visit Provider Internal Medicine | DX: E11.65 Type 2 diabetes mellitus with hyperglycemia (principal); Z23 Encounter for immunization; I10 Essential (primary) hypertension; E78.00 Pure hypercholesterolemia, unspecified; K21.9 Gastro-esophageal reflux disease without esophagitis; K76.0 Fatty (change of) liver, not elsewhere classified; G24.9 Dystonia, unspecified; Z86.0101 Personal history of adenomatous and serrated colon polyps; Z79.84 Long term (current) use of oral hypoglycemic drugs; Z79.899 Other long term (current) drug therapy | CPT/HCPCS: 83036; 90471; 90656; 99212 ==

== ENCOUNTER 2025-08-17 13:16 | Outpatient (AMB) | payer OTHER, SELFPAY ==
[2025-08-17 13:32] VITALS: BMI 28.9
--- NOTE | 2025-08-17 13:32 | A.OFFVIS_ITS ---
VS Expanded 08/17/25 13:32 08/17/25 13:41 Height 5 ft 1 in 5 ft 1 in Weight 153 lb 2 oz 153 lb BMI 28.9 28.9 Intake Visit Reasons: T2DM Allergies adhesive tape Allergy (Intermediate, Verified 06/12/25 15:43) Rash Nutrition Presentation Details: Pt presents for MNT f/u for T2DM Pt reports fasting and bedtime bg ranges between 112-125. Pt denies hypoglycemia Pt reports working on choosing healthier food options food frequency fruits: 2/d vegetables: 2/d dairy: 2-3/d protein: 60 g/d fluids: water, coke zero, juices diluted with water = 36 oz/d Pt reports working on reducing portions and reducing on empty calories foods Pt is contemplating starting yoga at [facility] Height: 5 ft 1 in Weight: 153 lb Resting Metabolic Rate: 1220.24 Calculated Activity Level: Sedentary Calories Needed to Maintain Weight: 1464.29 [facility] Medical History (Updated 05/24/25 @ 14:17 by Rosa Maria [address], LDN) Diverticulosis Annual physical exam Annual physical exam Breast cancer screening by mammogram Carpal tunnel syndrome of right wrist RUQ abdominal pain Menopause Menopause Cervical disc disease Alcohol abuse GERD (gastroesophageal reflux disease) Obesity (BMI 30-39.9) Hypercholesterolemia Vitamin D deficiency History of renal calculi Hypertension Type 2 diabetes mellitus with hyperglycemia Benign head tremor Fatty liver Depressed Obesity Diabetes Dystonia Surgical History Hx of colonoscopy S/P Botox injection History of carpal tunnel release History of extraction of renal calculus Family History Father Coronary artery disease Mother Emphysema lung Uterine cancer Paternal Uncle Myocardial infarction Paternal Aunt Breast cancer Myocardial infarction Brother CVA (cerebral vascular accident) Social History Housing: Apartment Alcohol intake: former Patient Tobacco Use Status: Never used Tobacco Tobacco use type: Cigarette e-Cigarette/Vaping Use: Never Used Second Hand Smoke Exposure: No Advance Directives Date on File: 06/04/20 service: No Current occupational status: disabled Current occupation: rt hand Cognitive needs: No Hearing needs: No Vision needs: Yes Assessment & Plan Assessment & Plan (1) Type 2 diabetes mellitus with hyperglycemia: Code(s): E11.65 - Type 2 diabetes mellitus with hyperglycemia Category: Medical Qualifiers: Diabetes mellitus measuring machine operator insulin use: without longterm use Qualified Code(s): E11.65 - Type 2 diabetes mellitus with hyperglycemia Plan: Used wt?: ? 76 ? kg 08/23, 75kg (10/25), 73 kg (02/22), 70 kg (05/25), 69.5 (08/24) Est kcal as per MSJ: 1500 (40% carb, 30% fat/prot) Est fluid needs: 1900 ml/d (25 ml/kg bw) Rec fiber:? increase to 8-10 g per day and gradually increase to 25 g/d? or? as tolerated? Rec Na: < ? 2000 mg /d Educate patient on:? (R= Reviewed,? V = verbalizes understanding ? N/R= Needs review? ? N/A= not applicable) * Food sources of carbohydrates and serving adequate serving sizes :??R * Difference between complex carbohydrates and simple carbohydrates, role of fiber:??R * Differences between fats (MUFA/PUFA/saturated fats, trans fats) and food sources of various fats:??? R * Food sources of sodium and salt and? healthy modifications for heart health and kidney health: R, V * Vitamins and minerals:? R * How to interpret food labels:? R, V * Healthy Plate method concept:??R, V? * Physical activity: benefits and precaution:? R, V * review BG goal as per ADA (80-130 in the fasting state and 80-180 , 2 hours after a meal) , importance of monitoring bg, importance of glucose control for heart health and overall health * Reduction of sugars/total carb for bg improvement and prevention of cardi ovascular disease: R * fiber rich low sugar options : R * Patient Instructions: Include fiber rich foods in your diet, (legumes, fruits, veg) 12-15 g per day Increase water intake as you increase fiber to prevent constipation Reduce high fat foods( ice cream, fried foods, creamy foods) Coding Level of Care Code Nutr Indiv Subseq (92758) Diagnoses Type 2 diabetes mellitus with hyperglycemia, without long-term current use of insulin E11.65 Diabetes mellitus measuring machine operator insulin use: without measuring machine operator use
[2025-08-17 13:41] VITALS: BMI 28.9
--- OUTSIDE RECORDS SUMMARY | 2025-08-17 17:20 | XMS_ITS | Clinical Summary ---
Author Organization [facility] Address [address] [place] [address] Care Team Providers Care Color Making Supervisor Name Role Phone KarenMao Duc Primary Care Provider [phone] Allergies No known active allergies Medications baclofen [...] ual Screening 08/31/2024 Influenza Vaccine (#1) 2025 , 10/28/2022, 08/15/2021, Additional history exists COVID-19 Vaccine (3 2024-2 6 season) 2025 02/02/2021, 01/12/2021 Insurance [facility] Care Teams Color Making Supervisor Relationship Specialty Start Date End Date Mao Sánchez [address] [facility] [place] [address] PCP - General Internal Medicine 09/14/24
== END 2025-08-17 14:11 | disposition home or self-care (01) ==
LOC: HO.ENCR 13:16
PROVIDERS: PCP Internal Medicine; Visit Provider Dietitian, Registered
DX: E11.65 Type 2 diabetes mellitus with hyperglycemia (principal)

== ENCOUNTER → 2025-08-17 13:16 | Outpatient (BNVA) | payer OTHER, SELFPAY | PROVIDERS: PCP Internal Medicine; Visit Provider Dietitian, Registered | DX: E11.65 Type 2 diabetes mellitus with hyperglycemia (principal); Z71.3 Dietary counseling and surveillance | CPT/HCPCS: 97803 ==